=== PATIENT | male | born 1950 | race Caucasian/White ===

== ENCOUNTER 2017-02-12 13:29 | Inpatient (IN) ==
[2017-02-12 14:09] LABS: Basophils % 0.2 % (0.0-0.8); Eosinophils # 0.1 10*3/uL (0.0-0.87); Eosinophils % 0.6 % (0.00-10.9); Hematocrit 42.3 VOL% (42.0-52.0); Immature Granulocytes % 0.6 %; Immature Granulocytes Absolute 0.09 #; Lymphocytes # 2.9 10*3/uL (1.4-4.0); Lymphocytes % 18.3 % (21.2-54.2); Mean Corpuscular HGB Conc 33.1 GM/DL (32-36); Mean Corpuscular Hemoglobin 28 PG (27-34); Mean Corpuscular Volume 84.1 FL (87-102); Mean Platelet Volume 8.9 FL (9.6-12.0); Monocytes # 0.9 10*3/uL (0.11-0.8); Monocytes % 5.7 % (1.7-12.7); Neutrophils # 11.8 10*3/uL (1.4-7.4); Neutrophils % 74.6 % (38.7-73.9); Platelet Count 218 T/CUMM (130-400); Red Blood Count 5.03 MC/CUMM (3.8-5.5); Red Cell Distribution Width 14.6 % (9.3-17.3); White Blood Count 15.8 T/CUMM (4-12)
--- NOTE | 2017-02-12 14:41 | XRay Report ---
Exam: XR abdomen complete w decub Date: 02/12/2017 1:48 PM Comparison: 11/08/2015 Indication: Generalized abdominal pain Technique:[Supine and left lateral decubitus abdomen] Findings: Nonobstructed bowel gas pattern. Increased fecal material in the colon. Probable ingested shot in the bowel. Stable small metallic coil coils in the right pelvis. Diffuse vascular calcifications are noted which makes it difficult to exclude additional renal calculi. Degenerative changes with prior median sternotomy. Impression: Nonobstructed bowel gas pattern. Increased signal material consistent with constipation. Prior median sternotomy with diffuse arterial calcifications which makes it difficult to exclude additional renal calculi. PROCEDURE INTERPRETED AT [facility] DEPARTMENT OF RADIOLOGY Final Report Signed by: Dr. Codi Olson
[2017-02-12 14:42] LABS: Bilirubin,Total 0.7 MG/DL (0.2-1.0); Calcium 8.1 MG/DL (8.5-10.1); Osmolality,Calculated 271.8 MOS/KG (273-304); Potassium 3.5 MMOL/L (3.5-5.1); Total Protein 6.2 G/DL (6.4-8.3)
[2017-02-12 14:48] LABS: Apearance,Urine CLEAR (Clear); Bacteria,Urine Occasional /HPF (Few); Bilirubin,Urine Negative (Negative); Blood, Urine Negative (Negative); Glucose,Urine (UA) Negative (Negative); Ketones,Urine Negative (Negative); Mucus,Urine Occasional /LPF (Occasional); Nitrite,Urine Negative (Negative); Protein,Urine Negative; RBC,Urine 2 /HPF (0-4); Urine Color Yellow (Yellow); Urine Specific Gravity 1.016 (1.001-1.035)
--- NOTE | 2017-02-12 15:02 | Emergency Department Note ---
Ana Avalos Brittany, am scribing for, and in the presence of, Richard Blake MD 14:18. Lou Avalos Phillip K, MD, personally performed the services described in this documentation, ascribed by Jaclyn Perez in my presence, and it is both accurate and complete [id number] . Arrival - Arrival Chief Complaint: GI Bleed/Rectal Stated Complaint: G I Bleed ED Nursing Triage Note: Arrived via EMS from home. Patient states that he has hard stools and noticed bright red blood in the commode yesterday. States that has been bleeding off and on. Mode of Arrival: Stretcher Limitations: No Limitations Source: Patient Time Seen by Provider: 02/12/17 13:42 - History of Present Illness HPI Narrative: This is a 66 y/o white male,who presents to the ED by EMS for further evaluation of hematochezia which started yesterday. He states he has a medical Hx of hemorrhoids. He notes abdominal pain and rectal pain . He denies any nausea or vomiting. Pt also complains of urinary retention and dark colored urine. He states the last time he voided was this morning. Pt has no other complaints/pain in the ED at this time. Pt has a PMHx of CVA, CAD, NM, dyslipidemia, aneurysm, hemorrhoids, and BPH. Pt denies a surgical Hx. Pt denies a family medical Hx. Pt denies a social Hx. Onset (ago): day(s) (Started yesterday) Consistency: constant Severity: moderate Allergies/Adverse Reactions: Allergies Allergy/AdvReac Type Severity Reaction Status Date / Time No Known Allergies Allergy Verified 02/12/17 13:44 Home Medications: Home Medications Medication Instructions Recorded Confirmed Type ALPRAZolam [Xanax] 1 mg PO Q8H 03/21/15 11/08/15 History HYDROcodone/ACETAMIN 10-325 [[place] 1 tablet PO Q6H PRN 03/21/15 11/08/15 History 10-325] Lovastatin 40 mg PO DAILY 03/21/15 11/08/15 History Metoprolol Tartrate 25 mg PO DAILY 03/21/15 11/08/15 History Tamsulosin [Flomax] 0.4 mg PO DAILY 03/21/15 11/08/15 History hydroCHLOROthiazide 25 mg PO BID DIURETIC 03/21/15 11/08/15 History [Hydrochlorothiazide] Amoxicillin/Clav Tab [Augmentin 875 mg PO BID #20 tablet 11/03/15 11/08/15 Rx Tab] Methocarbamol Tab [Robaxin Tab] 750 mg PO TID 11/03/15 11/08/15 History Potassium Chloride Cap/Tab [K Dur] 20 meq PO BID #60 tablet 11/03/15 11/08/15 Rx Temazepam [Restoril] 30 mg PO BEDTIME 11/03/15 11/08/15 History Magnesium Citrate [Citrate of 300 ml PO AC BREAKFAST #1 solution 11/08/15 Rx Magnesia] Review of System - Review of System 12 point system: reviewed and no additional remarkable complaints except as stated - Review of System Gastrointestinal: Present: abdominal pain, hematochezia, other (Rectal pain ). Absent: nausea, vomiting Genitourinary male: Present: other (Urinary retention with dark urine ) Medical,Surgical,& Family Hx - Medical History Cardio: History of: Aneurysm, CAD, NM Neurology: History of: Cerebrovascular Accident (with resulting left hemiparesis , CVA 2) Endocrine: History of: Dyslipidemia Genitourinary: History of: Prostate Problems (BPH) Gastrointestinal: History of: Hemorrhoids - Social History Smoking Status: Never smoker Frequency of Alcohol Use: None Type of Drug Use: None Exam Vital Signs: Vital Signs Temperature 97.6 F 02/12/17 13:41 Pulse Rate 100 H 02/12/17 13:41 Respiratory Rate 18 02/12/17 13:41 Blood Pressure 103/64 02/12/17 13:41 O2 Sat by Pulse Oximetry 98 02/12/17 13:30 - General General appearance: alert, in no apparent distress - Head Head exam: Present: atraumatic, normocephalic, normal inspection - Eye Eye exam: Present: normal appearance, PERRL, EOMI. Absent: nystagmus, miosis, mydriasis - ENT ENT exam: Present: normal exam, normal oropharynx, mucous membranes moist, TM's normal bilaterally, normal external ear exam - Neck Neck exam: Present: normal inspection, full ROM, trachea midline. Absent: tenderness, meningismus, lymphadenopathy, thyromegaly - Chest Chest inspection: Present: normal inspection, symmetric chest wall rise. Absent : tenderness, rash, abscess - Respiratory Respiratory exam: Present: normal lung sounds bilaterally. Absent: rales, respiratory distress, rhonchi, stridor, wheezes - Cardiovascular Cardiovascular exam: Present: normal rhythm, tachycardia, normal heart sounds. Absent: murmur, rubs, gallop, clicks, JVD - Abdominal Exam Abdominal exam: Present: soft, tenderness (Tenderness to the supprapubic area), normal bowel sounds. Absent: distention, guarding, rebound, rigidity - Rectal Exam Rectal exam: Present: bloody stool (Grossly bloody stool). Absent: hemorrhoids - Extremities Exam Extremities exam: Present: normal inspection, full ROM (Left extremities are normal, but there is left hemiparesis which is chronic secondary to CVA), normal capillary refill, other (Brace noted on the left leg secondary to CVA). Absent: tenderness, pedal edema, joint swelling, calf tenderness - Back Exam Back exam: Present: normal inspection, full ROM. Absent: tenderness, muscle spasm, rashes - Neurological Exam Neurological exam: Present: alert, oriented X3, CN II-XII intact. Absent: motor sensory deficit - Psychiatric Psychiatric exam: Present: normal affect, normal mood. Absent: depressed, agitated, anxious, flat affect, manic - Skin Skin exam: Present: warm, dry, intact, normal color. Absent: rash, cyanosis, diaphoresis, erythema, pallor, mottled Results - Labs CBC & BMP: 02/12/17 13:50 02/12/17 13:50 Lab Results: I have reviewed the patients labs Labs: Laboratory Tests 02/12/17 13:50 WBC 15.8 H RBC 5.03 Hgb 14.0 Hct 42.3 MCV 84.1 L MCH 28 MCHC 33.1 RDW 14.6 Plt Count 218 MPV 8.9 L Neut % (Auto) 74.6 H Lymph % (Auto) 18.3 L Marshall % (Auto) 5.7 Eos % (Auto) 0.6 Baso % (Auto) 0.2 Neut # (Auto) 11.8 H Lymph # (Auto) 2.9 Marshall # (Auto) 0.9 H Eos # (Auto) 0.1 Baso # (Auto) 0.0 Immature Gran % 0.6 Nucleated RBC % 0.0 Immature Gran # 0.09 Nucleated RBCs # 0.00 Laboratory Tests 02/12/17 13:50 Sodium 137 Potassium 3.5 Chloride 99 Carbon Dioxide 31 Anion Gap 10.5 BUN 16 Creatinine 0.90 GFR Calculation 84 BUN/Creatinine Ratio 17.00 Glucose 60 L Calculated Osmolality 271.8 L Calcium 8.1 L Total Bilirubin 0.70 AST 12 ALT 11 L Alkaline Phosphatase 68 Total Protein 6.2 L Albumin 3.0 L Globulin 3.2 Albumin/Globulin Ratio 0.9 L - Diagnostic Findings Procedure: Abdominal x-ray: report reviewed by me (Nonobstructed bowel gas pattern. Increased signal material consistnet with constipation. Prior median sternotomy with diffuse arterail calcifications which makes it difficult to exclude additional renal calculi. ) Disposition Clinical Impression: Lower gastrointestinal hemorrhage Case discussed with: patient Disposition: Still a Patient Condition: Guarded Additional Instructions: Admit to the hospitalist.
--- NOTE | 2017-02-12 16:14 | Hospitalist History & Physical ---
<Noé Guthrie - Last Filed: 02/12/17 16:06> Assessment and Plan (1) Lower gastrointestinal hemorrhage Status: Acute Assessment and plan: Gaston red blood noted per rectum. H&H 14 and 42.3. Consult gastroenterology for C scope. Initiate IV fluids for maintenance. Type and screen for possible blood transfusion. PPI therapy. Serial H&H's. Current Visit: Yes (2) Dyslipidemia Status: Acute Current Visit: Yes (3) Hemorrhoids Status: Acute Assessment and plan: Consult GI for colonoscopy. Gaston red blood per rectum could be due to ruptured internal hemorrhoids or diverticula. Continue to monitor H&H. Current Visit: Yes (4) Leukocytosis Status: Acute Assessment and plan: WBC 15.8. Will obtain blood cultures. Urinalysis was negative for any infection. Treat empirically with broad-spectrum antibiotics. Current Visit: Yes History of Present Illness Chief complaint: Lower GI Bleed History of present illness: Mr. Herrmann is a 66 year old male with a history of CVA, NH, hypertension, GI bleed, hemorrhoids who presented to the ED this afternoon with complaints of gaston red blood per rectum with onset yesterday. Patient states that he has been experiencing bloody stool and sometimes gaston blood per rectum even while urinating since last night. Patient does have a history of hemorrhoids which his notes to be "flattened". Digital rectal exam performed by ER physician revealed gaston red blood. Patient does admit to left lower quadrant and suprapubic pain associated with this bleeding. Patient denies headache, blurry vision, chest pain, shortness of breath, numbness or tingling outside of the ordinary, near syncopal episodes. On admission, lab work reveals WBC of 15.8, hemoglobin 14.0, hematocrit 42.3, sodium 137, potassium 3.5, BUN 16, creatinine 0.90, glucose 60. Urinalysis is negative for infection. Case has been discussed with Dr. Blake, ER physician, and Dr. Alberts, admitting physician, and the patient will be admitted to hospitalist service for further evaluation and treatment. Patient is a full code. Medications have been reviewed. Home Medications Medication Instructions Recorded Confirmed Type ALPRAZolam [Xanax] 1 mg PO Q8H PRN 03/21/15 02/12/17 History Lovastatin 40 mg PO BID 03/21/15 02/12/17 History Tamsulosin [Flomax] 0.4 mg PO DAILY 03/21/15 02/12/17 History hydroCHLOROthiazide 25 mg PO BID 03/21/15 02/12/17 History [Hydrochlorothiazide] Potassium Chloride Cap/Tab [K Dur] 20 meq PO BID #60 tablet 11/03/15 02/12/17 Rx Aspirin EC Tab 81 mg PO DAILY 02/12/17 02/12/17 History Baclofen Tab [Lioresal] 20 mg PO TID 02/12/17 02/12/17 History Duloxetine HCl [Duloxetine] 90 mg PO DAILY 02/12/17 02/12/17 History diphenhydrAMINE HCl 25 mg PO BEDTIME 02/12/17 02/12/17 History [diphenhydrAMINE Tab] Allergies Allergy/AdvReac Type Severity Reaction Status Date / Time No Known Allergies Allergy Verified 02/12/17 13:44 Medical,Surgical,& Family Hx - Medical History Cardio: History of: Aneurysm, CAD, [place] Neurology: History of: Cerebrovascular Accident (with resulting left hemiparesis , CVA 2) Endocrine: History of: Dyslipidemia Genitourinary: History of: Prostate Problems (BPH) Gastrointestinal: History of: Hemorrhoids - Family History Family History: Reports;: Family Heart Disease, Family Hypertension - Social History Smoking Status: Never smoker Frequency of Alcohol Use: None Type of Drug Use: None Marital Status: Lives With:: Spouse Functional capacity: bed bound - Constitutional Constitutional: Present: weakness. Absent: fatigue, headache(s) - EENT Eyes: Absent: blurry vision, loss of vision Ears: Absent: decreased hearing, ear pain Nose, mouth and throat: Absent: hoarseness, neck mass, sore throat - Cardiovascular Cardiovascular: Absent: chest pain at rest, diaphoresis, dyspnea, edema, palpitations - Respiratory Respiratory: Absent: cough, dyspnea, dyspnea on exertion, wheezing - Gastrointestinal Gastrointestinal: Present: hematochezia. Absent: abdominal pain, nausea, vomiting - Genitourinary Genitourinary: Present: difficulty urinating. Absent: dysuria, flank pain, hematuria - Musculoskeletal Musculoskeletal: Present: limited range of motion, muscle weakness - Neurological Neurological: Present: abnormal gait, numbness. Absent: abnormal speech, headache(s), syncope - Psychiatric Psychiatric: Absent: anxiety, depression - Endocrine Endocrine: Absent: fatigue - Hematologic/Lymphatic Hematologic/Lymphatic: Absent: easy bleeding, easy bruising Exam - Constitutional Vitals: Period Temp Pulse Resp BP Sys/Farr Pulse Ox Last 24 Hr 97.6 F-97.6 F 94-104 10-18 99-120/64-93 98 Exam: General appearance: normal weight, no acute distress - Head Head exam: Present: normocephalic, atraumatic - Eye Eye exam: Present: EOMI. Absent: conjunctival injection, nystagmus Pupils: Present: KAUSHIK, normal accommodation - ENT ENT exam: Present: normal exam, normal external ear exam - Neck Neck exam: Present: normal inspection. Absent: lymphadenopathy, tenderness, thyromegaly - Respiratory Respiratory exam: Present: clear to auscultation bilaterally. Absent: rales, rhonchi, wheezes - Cardiovascular Cardiovascular exam: Present: regular rate and rhythm. Absent: carotid bruit, gallop, rubs - GI/Abdominal GI/Abdominal exam: Present: normal bowel sounds. Absent: ascites, distended, mass - Extremities Exam Extremities exam: Present: normal capillary refill, contracted left upper extremity due to CVA, weakened left lower extremity disease CVA absent: edema - Back Exam Back exam: Absent: CVA tenderness (L), CVA tenderness (R) - Neurological Exam Neurological exam: Present: alert, oriented X3 - Psychiatric Psychiatric exam: Present: normal affect, normal mood - Skin Skin exam: Present: normal color, warm, dry Results - Labs CBC & BMP: 02/12/17 13:50 02/12/17 13:50 Lab Results: I have reviewed the past 24 hour labs - EKG EKG results: interpreted by ERMD - Diagnostic Findings Procedure: Abdominal x-ray: image reviewed by me, report reviewed by me <Alysha Alberts - Last Filed: 02/13/17 07:23> History of Present Illness History of present illness: Mr. Herrmann is a 66 year old male with a history of hemorrhoids started having gaston red per rectum the night prior to presentation. He had about 4 episodes prior to presenting to the ER. Upon arrival his H/H was stable and his KUB showed a nonobstructed bowel gas pattern. Plan Admit to a monitor bed IVF Serial cbc type and screen GI consult. Exam - Constitutional Vitals: Period Temp Pulse Resp BP Sys/Farr Pulse Ox Last 24 Hr 96.3 F-97.6 F 85-104 10-20 90-120/57-93 94-99 Results - Labs CBC & BMP: 02/13/17 04:32 02/13/17 04:32
[2017-02-12 16:44] LABS: INR 1.1; PT Patient Result 11.5 SECS
[2017-02-12] MEDS ORDERED: PANTOPRAZOLE 40 MG VIAL IV SCH (17:22)
[2017-02-12] MEDS: SODIUM CHLORIDE 0.9% 1,000 ML IV SCH (18:34)
[2017-02-12 18:58] LABS: Basophils % 0.3 % (0.0-0.8); Eosinophils # 0.2 10*3/uL (0.0-0.87); Eosinophils % 1.2 % (0.00-10.9); Hematocrit 38.2 VOL% (42.0-52.0); Hemoglobin 12.5 GM/DL (14.0-18.0); Immature Granulocytes % 0.5 %; Immature Granulocytes Absolute 0.07 #; Lymphocytes # 3.3 10*3/uL (1.4-4.0); Lymphocytes % 25.6 % (21.2-54.2); Mean Corpuscular HGB Conc 32.7 GM/DL (32-36); Mean Corpuscular Hemoglobin 28 PG (27-34); Mean Corpuscular Volume 85.5 FL (87-102); Mean Platelet Volume 9.1 FL (9.6-12.0); Monocytes # 0.5 10*3/uL (0.11-0.8); Monocytes % 3.6 % (1.7-12.7); Neutrophils # 8.9 10*3/uL (1.4-7.4); Neutrophils % 68.8 % (38.7-73.9); Platelet Count 229 T/CUMM (130-400); Red Blood Count 4.47 MC/CUMM (3.8-5.5); Red Cell Distribution Width 14.6 % (9.3-17.3); White Blood Count 12.9 T/CUMM (4-12)
[2017-02-12 19:34] LABS: Risk Ratio 2.14; Thyroid Stimulating Hormone 0.885 uIU/ml (0.358-3.74); VLDL CHOLESTEROL 15.2 MG/DL
[2017-02-12] MEDS: ALPRAZolam 0.5 MG TABLET PO PRN (21:31)
[2017-02-12] MEDS: BACLOFEN 20 MG TABLET PO SCH (21:32)
[2017-02-12] MEDS: LOVASTATIN 20 MG TABLET PO SCH (21:32)
[2017-02-12] MEDS: PANTOPRAZOLE 40 MG VIAL IV SCH (21:41)
[2017-02-13 06:08] LABS: Basophils % 0.3 % (0.0-0.8); Eosinophils # 0.2 10*3/uL (0.0-0.87); Eosinophils % 2.2 % (0.00-10.9); Hematocrit 39.1 VOL% (42.0-52.0); Hemoglobin 12.4 GM/DL (14.0-18.0); Immature Granulocytes % 0.3 %; Immature Granulocytes Absolute 0.03 #; Lymphocytes # 3.6 10*3/uL (1.4-4.0); Lymphocytes % 33.9 % (21.2-54.2); Mean Corpuscular HGB Conc 31.7 GM/DL (32-36); Mean Corpuscular Hemoglobin 27 PG (27-34); Mean Platelet Volume 9.1 FL (9.6-12.0); Monocytes # 0.7 10*3/uL (0.11-0.8); Monocytes % 6.7 % (1.7-12.7); Neutrophils # 6.1 10*3/uL (1.4-7.4); Neutrophils % 56.6 % (38.7-73.9); Platelet Count 236 T/CUMM (130-400); Red Cell Distribution Width 14.6 % (9.3-17.3); White Blood Count 10.7 T/CUMM (4-12)
[2017-02-13 06:47] LABS: Albumin 2.7 G/DL (3.4-5.0); Bilirubin,Total 0.7 MG/DL (0.2-1.0); Calcium 8.1 MG/DL (8.5-10.1); Osmolality,Calculated 273.5 MOS/KG (273-304); Potassium 4.2 MMOL/L (3.5-5.1); Total Protein 5.7 G/DL (6.4-8.3)
[2017-02-13] MEDS: SODIUM CHLORIDE 0.9% 1,000 ML IV SCH ×2 (08:30→10:53)
[2017-02-13] MEDS ORDERED: diphenhydrAMINE CAP 25 MG CAPSULE PO SCH (09:00)
[2017-02-13] MEDS ORDERED: LACTULOSE 20 GM/30 ML UDCUP PO PRN (09:04)
[2017-02-13] MEDS ORDERED: DEXTROSE 50% 25 GM/50 ML VIAL IV PRN ×2 (09:37→10:15)
[2017-02-13] MEDS ORDERED: GLUCAGON 1 MG VIAL IM PRN ×2 (09:37→10:15)
--- NOTE | 2017-02-13 09:41 | Hospitalist Progress Note ---
<Noé Guthrie - Last Filed: 02/13/17 09:38> Assessment and Plan (1) Lower gastrointestinal hemorrhage Status: Acute Assessment and plan: Gaston red blood noted per rectum. H&H 14 and 42.3. Consult gastroenterology for C scope. Initiate IV fluids for maintenance. Type and screen for possible blood transfusion. PPI therapy. Serial H&H's. 02/13/17 -H&H today 12.4 and 39.1. GI has been consulted and is scheduled to see the patient today for possible colonoscopy. No bleeding per rectum noted overnight. Current Visit: Yes (2) Dyslipidemia Status: Acute Current Visit: Yes (3) Hemorrhoids Status: Acute Assessment and plan: Consult GI for colonoscopy. Gaston red blood per rectum could be due to ruptured internal hemorrhoids or diverticula. Continue to monitor H&H. 02/13/17 -GI is on board. Current Visit: Yes (4) Leukocytosis Status: Acute Assessment and plan: WBC 15.8. Will obtain blood cultures. Urinalysis was negative for any infection. Treat empirically with broad-spectrum antibiotics. 02/13/17 -WBC down to 10.7 today. Current Visit: Yes (5) Hypoglycemia Status: Acute Assessment and plan: This is likely secondary to the patient's nutritional status or GI bleed. Patient is not diabetic and is not on any antidiabetic medication. We will continue to monitor serum glucose and give dextrose as necessary. Current Visit: Yes Hospitalist: Subjective Interval history: Patient seen and examined today. He is lying in bed awake and alert. GI has been consulted and is scheduled to see the patient today for possible colonoscopy. Patient notes that he has not had any gaston bleeding per rectum overnight. H&H remained stable at 12.4 and 39.1. Patient does have low blood sugar today at 61. We will continue to monitor and be prepared to give dextrose as indicated. Exam - Constitutional Vitals: Period Temp Pulse Resp BP Sys/Farr Pulse Ox Last 24 Hr 96.3 F-97.6 F 80-104 10-20 90-120/57-93 93-99 Exam: General appearance: normal weight, no acute distress - Head Head exam: Present: normocephalic, atraumatic - Eye Eye exam: Present: EOMI. Absent: conjunctival injection, nystagmus Pupils: Present: KAUSHIK, normal accommodation - ENT ENT exam: Present: normal exam, normal external ear exam - Neck Neck exam: Present: normal inspection. Absent: lymphadenopathy, tenderness, thyromegaly - Respiratory Respiratory exam: Present: clear to auscultation bilaterally. Absent: rales, rhonchi, wheezes - Cardiovascular Cardiovascular exam: Present: regular rate and rhythm. Absent: carotid bruit, gallop, rubs - GI/Abdominal GI/Abdominal exam: Present: normal bowel sounds. Absent: ascites, distended, mass - Extremities Exam Extremities exam: Present: normal capillary refill, contracted left upper extremity due to CVA, weakened left lower extremity disease CVA absent: edema - Back Exam Back exam: Absent: CVA tenderness (L), CVA tenderness (R) - Neurological Exam Neurological exam: Present: alert, oriented X3 - Psychiatric Psychiatric exam: Present: normal affect, normal mood - Skin Skin exam: Present: normal color, warm, dry Results - Labs CBC & BMP: 02/13/17 04:32 02/13/17 04:32 Lab Results: I have reviewed the past 24 hour labs Quality Measures - VTE Contraindication to Pharmacological VTE Prophylaxis: Active Bleeding <Alysha Alberts - Last Filed: 02/13/17 15:42> Hospitalist: Subjective Interval history: We will give Colace and lactulose for his constipation. Exam - Constitutional Vitals: Period Temp Pulse Resp BP Sys/Farr Pulse Ox Last 24 Hr 96.3 F-97.5 F 80-103 12-20 90-120/55-78 93-99 Results - Labs CBC & BMP: 02/13/17 04:32 02/13/17 04:32
--- NOTE | 2017-02-13 10:04 | Gastrointestinal Consult Note ---
<Mary Vásquez - Last Filed: 02/13/17 09:58> Assessment and Plan (1) Lower gastrointestinal hemorrhage Status: Acute Assessment and plan: 02/13-Sudden onset of bright red rectal bleeding with lower abdominal pain. Hx of perirectal abscess with surgical intervention in 2012. Hgb down slightly at 12. Clear liquid diet. Tentative colonoscopy to further evaluate source of bleeding tomorrow. Plan and addendum to follow by Dr Belcher. Current Visit: Yes History of Present Illness Chief complaint: Rectal bleed History of present illness: Mr. Herrmann is a 66 year old male who was admitted to the hospital with onset of rectal bleeding. Pt states he was in his usual state of health until Sunday night when he had the urge to have a bowel movement. Following this, he noted that he had a large amount of bright red blood mixed in the stool with his bowel movement. He also recalls having some lower quadrant abdominal pain associated with this. Pt states that he had 2-3 more episodes of this and then reported to the ER for further evaluation. He reports his last bloody bowel movement was yesterday morning. He states he has had this in the past in 2012 in which he underwent emergent colonoscopy and surgical intervention with findings at that time of perirectal ulcer/abscess. Under anesthesia he had evacuation of intraluminal clot and debris from cavitary perforation. He states he has had no further bleeding since this time. Hemoglobin on admission noted at 14, down slightly at 12.4. He denies any NSAID or anticoagulant use. He denies any recent weight loss, fever, chills or night sweats. States he does have some history of constipation and hemorrhoids and will have mild bright red bleeding at times but nothing to this caliber. Abdominal xray shows nonobstructed bowel gas pattern with constipation. WBC are elevated at 15.8 with blood cultures pending and negative UA. Home Medications Medication Instructions Recorded Confirmed Type ALPRAZolam [Xanax] 1 mg PO Q8H PRN 03/21/15 02/12/17 History Lovastatin 40 mg PO BID 03/21/15 02/12/17 History Tamsulosin [Flomax] 0.4 mg PO DAILY 03/21/15 02/12/17 History hydroCHLOROthiazide 25 mg PO BID 03/21/15 02/12/17 History [Hydrochlorothiazide] Potassium Chloride Cap/Tab [K Dur] 20 meq PO BID #60 tablet 11/03/15 02/12/17 Rx Aspirin EC Tab 81 mg PO DAILY 02/12/17 02/12/17 History Baclofen Tab [Lioresal] 20 mg PO TID 02/12/17 02/12/17 History Duloxetine HCl [Duloxetine] 90 mg PO DAILY 02/12/17 02/12/17 History diphenhydrAMINE HCl 25 mg PO BEDTIME 02/12/17 02/12/17 History [diphenhydrAMINE Tab] Allergies Allergy/AdvReac Type Severity Reaction Status Date / Time No Known Allergies Allergy Verified 02/12/17 13:44 Medical,Surgical,& Family Hx - Medical History Cardio: History of: Aneurysm, CAD, [place] (x 2) Psychological: No history of: Anxiety Disorders, ADHD, Behavior Problems, Bipolar Disorder, Depression, Previous Suicide Attempt, Psychiatric/Substance Abuse Tx, Schizophrenia, Violent Behavior, Psychiatric Problems Neurology: History of: Cerebrovascular Accident (with resulting left hemiparesis , CVA 2) Endocrine: History of: Dyslipidemia Genitourinary: History of: Prostate Problems (BPH) Gastrointestinal: History of: Hemorrhoids - Family History Family History: Reports;: Family Heart Disease, Family Hypertension - Social History Smoking Status: Never smoker Frequency of Alcohol Use: None Type of Drug Use: None 12 point system: reviewed and no additional remarkable complaints except as stated - Constitutional Constitutional: Present: as per HPI - EENT Eyes: Present: as per HPI Ears: Present: as per HPI Nose, mouth and throat: Present: as per HPI - Cardiovascular Cardiovascular: Present: as per HPI - Respiratory Respiratory: Present: as per HPI - Gastrointestinal Gastrointestinal: Present: as per HPI, abdominal pain, hematochezia - Genitourinary Genitourinary: Present: as per HPI - Musculoskeletal Musculoskeletal: Present: as per HPI - Neurological Neurological: Present: as per HPI - Psychiatric Psychiatric: Present: as per HPI - Endocrine Endocrine: Present: as per HPI - Hematologic/Lymphatic Hematologic/Lymphatic: Present: as per HPI Exam - Constitutional Vitals: Period Temp Pulse Resp BP Sys/Farr Pulse Ox Last 24 Hr 96.3 F-97.6 F 80-104 10-20 90-120/57-93 93-99 General appearance: normal weight, no acute distress - Head Head exam: Present: normal inspection, normocephalic - Eye Eye exam: Present: other (lids and conjunctiva unremarkable). Absent: scleral icterus - ENT ENT exam: Present: normal exam, normal oropharynx - Neck Neck exam: Present: normal inspection - Respiratory Respiratory exam: Present: clear to auscultation bilaterally. Absent: rales, rhonchi, wheezes - Cardiovascular Cardiovascular exam: Present: regular rate and rhythm. Absent: diastolic murmur , JVD, systolic murmur - GI/Abdominal GI/Abdominal exam: Present: normal bowel sounds, tenderness, soft. Absent: ascites, distended, mass, organomegaly - Extremities Exam Extremities exam: Present: normal inspection, full ROM - Back Exam Back exam: Present: normal inspection - Neurological Exam Neurological exam: Present: alert, oriented X3 - Psychiatric Psychiatric exam: Present: normal affect, normal mood - Skin Skin exam: Present: normal color, warm, dry Results - Labs CBC & BMP: 02/13/17 04:32 02/13/17 04:32 Lab Results: I have reviewed the past 24 hour labs Quality Measures - VTE Contraindication to Pharmacological VTE Prophylaxis: Active Bleeding <Anoop Belcher - Last Filed: 02/13/17 18:38> History of Present Illness History of present illness: Mr. Herrmann is a 66 year old male Exam - Constitutional Vitals: Period Temp Pulse Resp BP Sys/Farr Pulse Ox Last 24 Hr 96.3 F-98.4 F 80-100 18-20 92-117/55-73 93-99 Results - Labs CBC & BMP: 02/13/17 04:32 02/13/17 04:32
[2017-02-13] MEDS: PANTOPRAZOLE 40 MG VIAL IV SCH (10:41)
[2017-02-13] MEDS: TAMSULOSIN 0.4 MG CAPSULE PO SCH (10:42)
[2017-02-13] MEDS: BACLOFEN 20 MG TABLET PO SCH ×3 (10:42→21:34)
[2017-02-13] MEDS: DOCUSATE SODIUM 100 MG CAPSULE PO SCH ×2 (10:43→21:34)
[2017-02-13] MEDS: DULoxetine 30 MG CAPSULE PO SCH (10:43)
[2017-02-13] MEDS: LOVASTATIN 20 MG TABLET PO SCH ×2 (10:43→21:34)
[2017-02-13] MEDS ORDERED: INSULIN LISPRO 100 UNIT/ML SUBCUT SCH ×2 (11:30)
[2017-02-13] MEDS ORDERED: BISACODYL 5 MG TABLET PO ONE (12:30)
[2017-02-13] MEDS ORDERED: POLYETHYLENE GLYCOL POWDER 255 GM BOTTLE PO ONE (13:00)
[2017-02-13] MEDS ORDERED: MAGNESIUM CITRATE 300 ML BOTTLE PO ONE (21:00)
[2017-02-13] MEDS: diphenhydrAMINE CAP 25 MG CAPSULE PO SCH (21:34)
[2017-02-13] MEDS: DESITIN 4OZ/NYSTATIN 15 GRAM MIXTURE PASTE TOP SCH (21:55)
[2017-02-14] MEDS: SODIUM CHLORIDE 0.9% 1,000 ML IV SCH ×5 (01:38→23:24)
[2017-02-14] MEDS ORDERED: POLYETHYLENE GLYCOL POWDER 255 GM BOTTLE PO ONE (09:01)
[2017-02-14] MEDS: PANTOPRAZOLE 40 MG VIAL IV SCH (09:30)
[2017-02-14] MEDS: DOCUSATE SODIUM 100 MG CAPSULE PO SCH ×2 (09:31→20:57)
[2017-02-14] MEDS: LOVASTATIN 20 MG TABLET PO SCH ×2 (09:31→20:57)
[2017-02-14] MEDS: DULoxetine 30 MG CAPSULE PO SCH (09:31)
[2017-02-14] MEDS: TAMSULOSIN 0.4 MG CAPSULE PO SCH (09:31)
[2017-02-14] MEDS: BACLOFEN 20 MG TABLET PO SCH ×3 (09:31→20:57)
--- NOTE | 2017-02-14 10:06 | Gastrointestinal Progress Note ---
<Mary Vásquez - Last Filed: 02/14/17 09:02> Assessment and Plan (1) Lower gastrointestinal hemorrhage Status: Acute Assessment and plan: 02/14-hemoglobin unchanged at 12. Patient continues to have formed stool with colon prep. Postpone colonoscopy until tomorrow and continue prep clear liquid diet today. Plan an addendum to follow by Dr. Belcher. 02/13-Sudden onset of bright red rectal bleeding with lower abdominal pain. Hx of perirectal abscess with surgical intervention in 2012. Hgb down slightly at 12. Clear liquid diet. Tentative colonoscopy to further evaluate source of bleeding tomorrow. Plan and addendum to follow by Dr Belcher. Current Visit: Yes Gastroenterology - PN: Subj Interval history: CC: Lower GI bleed Patient is seen awake and alert lying in bed. States he is feeling fair due to he did not sleep overnight. He was given colon prep on yesterday however does continue to have formed stools this morning. He is unable to recall if he is seen any further bleeding at this time. Colonoscopy was scheduled for today however this will be postponed until tomorrow we will continue his prep today and clear liquid diet. Hemoglobin is unchanged at this time. Abdomen is soft, nontender. ROS: Denies shortness of breath or chest pain. Exam (Progress Note) - Constitutional Vitals: Period Temp Pulse Resp BP Sys/Farr Pulse Ox Last 24 Hr 96.9 F-98.6 F 65-128 16-18 106-139/55-76 93-100 General appearance: normal weight, no acute distress - Head Head exam: Present: normal inspection, normocephalic - Eye Eye exam: Present: other (Lids and conjunctive are unremarkable). Absent: scleral icterus - ENT ENT exam: Present: normal exam, normal oropharynx - Neck Neck exam: Present: normal inspection - Respiratory Respiratory exam: Present: clear to auscultation bilaterally. Absent: rales, rhonchi, wheezes - Cardiovascular Cardiovascular exam: Present: regular rate and rhythm. Absent: diastolic murmur , JVD, systolic murmur - GI/Abdominal GI/Abdominal exam: Present: normal bowel sounds, soft. Absent: ascites, distended, mass, organomegaly, tenderness - Extremities Exam Extremities exam: Present: normal inspection, full ROM - Back Exam Back exam: Present: normal inspection - Neurological Exam Neurological exam: Present: alert, oriented X3 - Psychiatric Psychiatric exam: Present: normal affect, normal mood - Skin Skin exam: Present: normal color, warm, dry Results - Labs CBC & BMP: 02/13/17 04:32 02/13/17 04:32 Lab Results: I have reviewed the past 24 hour labs <Anoop Belcher - Last Filed: 02/14/17 18:09> Exam (Progress Note) - Constitutional Vitals: Period Temp Pulse Resp BP Sys/Farr Pulse Ox Last 24 Hr 96.9 F-98.6 F 65-128 16-20 115-139/56-98 93-100 Results - Labs CBC & BMP: 02/14/17 10:22 02/14/17 10:22
--- NOTE | 2017-02-14 10:40 | Hospitalist Progress Note ---
<Noé Guthrie - Last Filed: 02/14/17 10:37> Assessment and Plan (1) Lower gastrointestinal hemorrhage Status: Acute Assessment and plan: Gaston red blood noted per rectum. H&H 14 and 42.3. Consult gastroenterology for C scope. Initiate IV fluids for maintenance. Type and screen for possible blood transfusion. PPI therapy. Serial H&H's. 02/13/17 -H&H today 12.4 and 39.1. GI has been consulted and is scheduled to see the patient today for possible colonoscopy. No bleeding per rectum noted overnight. 02/14/17 -labs were they are pending. Patient reports some bleeding overnight due to bowel prep in anticipation of colonoscopy tomorrow. Continue PPI therapy. Current Visit: Yes (2) Hemorrhoids Status: Acute Assessment and plan: Consult GI for colonoscopy. Gaston red blood per rectum could be due to ruptured internal hemorrhoids or diverticula. Continue to monitor H&H. 02/13/17 -GI is on board. Current Visit: Yes (3) Leukocytosis Status: Acute Assessment and plan: WBC 15.8. Will obtain blood cultures. Urinalysis was negative for any infection. Treat empirically with broad-spectrum antibiotics. 02/13/17 -WBC down to 10.7 today. 02/14/17 -labs for today are pending. Blood cultures and urine cultures are negative at day 1. Patient remains afebrile. Current Visit: Yes (4) Hypoglycemia Status: Acute Assessment and plan: This is likely secondary to the patient's nutritional status or GI bleed. Patient is not diabetic and is not on any antidiabetic medication. We will continue to monitor serum glucose and give dextrose as necessary. 02/14/17 -patient was advanced to a clear liquid diet yesterday and his glucose has normalized. Last Accu-Chek 94 Current Visit: Yes (5) Dyslipidemia Status: Acute Current Visit: Yes Hospitalist: Subjective Interval history: Patient seen and examined today. He is lying in bed awake and alert. His only complaint is that he has had to use the bathroom too often due to the bowel prep in preparation for his colonoscopy in the morning. Labs are pending. Will continue to monitor H&H. Exam - Constitutional Vitals: Period Temp Pulse Resp BP Sys/Farr Pulse Ox Last 24 Hr 96.9 F-98.6 F 65-128 16-18 106-139/55-76 93-100 Exam: General appearance: normal weight, no acute distress - Head Head exam: Present: normocephalic, atraumatic - Eye Eye exam: Present: EOMI. Absent: conjunctival injection, nystagmus Pupils: Present: KAUSHIK, normal accommodation - ENT ENT exam: Present: normal exam, normal external ear exam - Neck Neck exam: Present: normal inspection. Absent: lymphadenopathy, tenderness, thyromegaly - Respiratory Respiratory exam: Present: clear to auscultation bilaterally. Absent: rales, rhonchi, wheezes - Cardiovascular Cardiovascular exam: Present: regular rate and rhythm. Absent: carotid bruit, gallop, rubs - GI/Abdominal GI/Abdominal exam: Present: normal bowel sounds. 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 Quality Measures - VTE Contraindication to Pharmacological VTE Prophylaxis: Active Bleeding <Alysha Alberts - Last Filed: 02/14/17 14:35> Hospitalist: Subjective Interval history: Patient was seen this am, his colonoscopy was postponed due to poor prep. Exam - Constitutional Vitals: Period Temp Pulse Resp BP Sys/Farr Pulse Ox Last 24 Hr 96.9 F-98.6 F 65-128 16-20 117-139/68-98 93-100 Results - Labs CBC & BMP: 02/14/17 10:22 02/14/17 10:22
[2017-02-14 10:52] LABS: Basophils % 0.3 % (0.0-0.8); Eosinophils # 0.1 10*3/uL (0.0-0.87); Eosinophils % 0.8 % (0.00-10.9); Hematocrit 33.2 VOL% (42.0-52.0); Hemoglobin 10.5 GM/DL (14.0-18.0); Immature Granulocytes % 0.5 %; Immature Granulocytes Absolute 0.05 #; Lymphocytes # 1.8 10*3/uL (1.4-4.0); Lymphocytes % 19.2 % (21.2-54.2); Mean Corpuscular HGB Conc 31.6 GM/DL (32-36); Mean Corpuscular Hemoglobin 27 PG (27-34); Mean Corpuscular Volume 86.7 FL (87-102); Mean Platelet Volume 9.3 FL (9.6-12.0); Monocytes # 0.4 10*3/uL (0.11-0.8); Monocytes % 4.8 % (1.7-12.7); Neutrophils # 6.9 10*3/uL (1.4-7.4); Neutrophils % 74.4 % (38.7-73.9); Platelet Count 254 T/CUMM (130-400); Red Blood Count 3.83 MC/CUMM (3.8-5.5); Red Cell Distribution Width 14.4 % (9.3-17.3); White Blood Count 9.2 T/CUMM (4-12)
[2017-02-14 11:18] LABS: Calcium 7.8 MG/DL (8.5-10.1); Magnesium 2.7 MG/DL (1.8-2.4); Osmolality,Calculated 282.3 MOS/KG (273-304); Potassium 5.1 MMOL/L (3.5-5.1)
[2017-02-14] MEDS: DESITIN 4OZ/NYSTATIN 15 GRAM MIXTURE PASTE TOP SCH ×2 (14:58→21:25)
[2017-02-14] MEDS: diphenhydrAMINE CAP 25 MG CAPSULE PO SCH (20:57)
[2017-02-14 21:56] LABS: Hematocrit 29.8 VOL% (42.0-52.0); Hemoglobin 9.7 GM/DL (14.0-18.0)
[2017-02-14] MEDS: MORPHINE 2 MG/1 ML SYRINGE IV PRN (23:50)
[2017-02-15 06:31] LABS: Basophils % 0.1 % (0.0-0.8); Hematocrit 24.8 VOL% (42.0-52.0); Hemoglobin 8.3 GM/DL (14.0-18.0); Immature Granulocytes % 0.8 %; Immature Granulocytes Absolute 0.17 #; Lymphocytes # 2.9 10*3/uL (1.4-4.0); Lymphocytes % 13.7 % (21.2-54.2); Mean Corpuscular HGB Conc 33.5 GM/DL (32-36); Mean Corpuscular Hemoglobin 29 PG (27-34); Mean Corpuscular Volume 85.2 FL (87-102); Mean Platelet Volume 8.9 FL (9.6-12.0); Monocytes # 1.2 10*3/uL (0.11-0.8); Monocytes % 5.6 % (1.7-12.7); Neutrophils # 17.1 10*3/uL (1.4-7.4); Neutrophils % 79.8 % (38.7-73.9); Platelet Count 221 T/CUMM (130-400); Red Blood Count 2.91 MC/CUMM (3.8-5.5); Red Cell Distribution Width 14.4 % (9.3-17.3); White Blood Count 21.5 T/CUMM (4-12)
[2017-02-15 06:53] LABS: Band Neutrophils 2 % (0-10); Lymphocytes 11 % (20-55); Segmented Neutrophils 83 % (50-85); Total Cells Counted 100
[2017-02-15 06:54] LABS: Hypochromasia 1+; Platelet Estimate Adequate
[2017-02-15 07:04] LABS: Calcium 7.4 MG/DL (8.5-10.1); Magnesium 2.3 MG/DL (1.8-2.4); Osmolality,Calculated 275.5 MOS/KG (273-304); Potassium 4.6 MMOL/L (3.5-5.1)
[2017-02-15 09:37] LABS: Hematocrit 24.6 VOL% (42.0-52.0); Hemoglobin 8.1 GM/DL (14.0-18.0)
[2017-02-15 10:17] LABS: Basophils # 0.1 10*3/uL (0.0-0.2); Basophils % 0.2 % (0.0-0.8); Eosinophils % 0.1 % (0.00-10.9); Hematocrit 24.5 VOL% (42.0-52.0); Immature Granulocytes % 0.7 %; Immature Granulocytes Absolute 0.17 #; Lymphocytes # 4.2 10*3/uL (1.4-4.0); Lymphocytes % 18.2 % (21.2-54.2); Mean Corpuscular HGB Conc 32.7 GM/DL (32-36); Mean Corpuscular Hemoglobin 28 PG (27-34); Mean Corpuscular Volume 85.4 FL (87-102); Mean Platelet Volume 8.8 FL (9.6-12.0); Monocytes # 1.3 10*3/uL (0.11-0.8); Monocytes % 5.8 % (1.7-12.7); Neutrophils # 17.2 10*3/uL (1.4-7.4); Platelet Count 222 T/CUMM (130-400); Red Blood Count 2.87 MC/CUMM (3.8-5.5); Red Cell Distribution Width 14.5 % (9.3-17.3); White Blood Count 22.9 T/CUMM (4-12)
--- NOTE | 2017-02-15 10:34 | Hospitalist Progress Note ---
<Noé Guthrie - Last Filed: 02/15/17 10:27> Assessment and Plan - Time spent with patient Time spent with patient: Less than 30 minutes (1) Lower gastrointestinal hemorrhage Status: Acute Assessment and plan: Gaston red blood noted per rectum. H&H 14 and 42.3. Consult gastroenterology for C scope. Initiate IV fluids for maintenance. Type and screen for possible blood transfusion. PPI therapy. Serial H&H's. 02/13/17 -H&H today 12.4 and 39.1. GI has been consulted and is scheduled to see the patient today for possible colonoscopy. No bleeding per rectum noted overnight. 02/14/17 -labs were they are pending. Patient reports some bleeding overnight due to bowel prep in anticipation of colonoscopy tomorrow. Continue PPI therapy. 02/15/70 -H&H today down to 8.3 and 24.8. Patient underwent bowel prep yesterday. He is scheduled for colonoscopy today. Current Visit: Yes (2) Hemorrhoids Status: Acute Assessment and plan: Consult GI for colonoscopy. Gaston red blood per rectum could be due to ruptured internal hemorrhoids or diverticula. Continue to monitor H&H. 02/13/17 -GI is on board. Current Visit: Yes (3) Leukocytosis Status: Acute Assessment and plan: WBC 15.8. Will obtain blood cultures. Urinalysis was negative for any infection. Treat empirically with broad-spectrum antibiotics. 02/13/17 -WBC down to 10.7 today. 02/14/17 -labs for today are pending. Blood cultures and urine cultures are negative at day 1. Patient remains afebrile. 02/15/17-WBC to 22 today. Urine culture grew gram-negative rods at day 2. We will start Rocephin. Current Visit: Yes (4) Hypoglycemia Status: Acute Assessment and plan: This is likely secondary to the patient's nutritional status or GI bleed. Patient is not diabetic and is not on any antidiabetic medication. We will continue to monitor serum glucose and give dextrose as necessary. 02/14/17 -patient was advanced to a clear liquid diet yesterday and his glucose has normalized. Last Accu-Chek 94 02/15/17 -this has been resolved since the patient's diet has been advanced. We will continue to monitor. Current Visit: Yes (5) Dyslipidemia Status: Acute Current Visit: Yes Hospitalist: Subjective Interval history: Patient seen and examined on the floor today. He is scheduled for colonoscopy this morning. He reports feeling fine today however his repeat H&H has dropped to 8.3 and 24.8. White count today is elevated at 22. Urine culture grew gram- negative rods on day 2. We will start on broad-spectrum antibiotics empirically until sensitivity report is back. Exam - Constitutional Vitals: Period Temp Pulse Resp BP Sys/Farr Pulse Ox Last 24 Hr 97.4 F-98.2 F 98-124 16-22 104-127/54-98 90-99 Exam: General appearance: normal weight, no acute distress - Head Head exam: Present: normocephalic, atraumatic - Eye Eye exam: Present: EOMI. Absent: conjunctival injection, nystagmus Pupils: Present: KAUSHIK, normal accommodation - ENT ENT exam: Present: normal exam, normal external ear exam - Neck Neck exam: Present: normal inspection. Absent: lymphadenopathy, tenderness, thyromegaly - Respiratory Respiratory exam: Present: clear to auscultation bilaterally. Absent: rales, rhonchi, wheezes - Cardiovascular Cardiovascular exam: Present: regular rate and rhythm. Absent: carotid bruit, gallop, rubs - GI/Abdominal GI/Abdominal exam: Present: normal bowel sounds. Absent: ascites, distended, mass - Extremities Exam Extremities exam: Present: normal capillary refill, contracted left upper extremity due to CVA, weakened left lower extremity disease CVA absent: edema - Back Exam Back exam: Absent: CVA tenderness (L), CVA tenderness (R) - Neurological Exam Neurological exam: Present: alert, oriented X3 - Psychiatric Psychiatric exam: Present: normal affect, normal mood - Skin Skin exam: Present: normal color, warm, dry Results - Labs CBC & BMP: 02/15/17 10:03 02/15/17 06:22 Lab Results: I have reviewed the past 24 hour labs Quality Measures - VTE Contraindication to Pharmacological VTE Prophylaxis: Active Bleeding <Pao Gross - Last Filed: 02/15/17 16:45> Hospitalist: Subjective Interval history: Patient seen and examined independently of NANNETTE Guthrie, agree with assessment and plan as documented. Leukocytosis today, started on rocephin today for UTI. Colonoscopy today. Exam - Constitutional Vitals: Period Temp Pulse Resp BP Sys/Farr Pulse Ox Last 24 Hr 97.8 F-99.0 F 104-120 16-24 68-127/38-69 90-99 Results - Labs CBC & BMP: 02/15/17 15:45 02/15/17 06:22
[2017-02-15 10:39] LABS: Band Neutrophils 5 % (0-10); Lymphocytes 19 % (20-55); Segmented Neutrophils 70 % (50-85); Total Cells Counted 100
[2017-02-15 10:40] LABS: Hypochromasia 1+; Microcytosis 1+
[2017-02-15 10:41] LABS: Platelet Estimate Normal
[2017-02-15] MEDS ORDERED: PROPOFOL 200 MG/20 ML VIAL IV ONE (11:49)
[2017-02-15] MEDS ORDERED: LIDOCAINE 2% 5 ML VIAL ONE (11:49)
--- NOTE | 2017-02-15 12:09 | History and Physical Update ---
History and Physical Update - Physical Exam Mental Status: alert and oriented Heart: regular rate and rhythm Lung: clear to auscultation Abdomen: within normal limits Vitals: within normal limits
--- NOTE | 2017-02-15 12:12 | Operative Note ---
Date of procedure: 02/15/17 Pre-op diagnosis: Rectal bleeding Procedure: Colonoscopy with biopsy 66-year-old gentleman previous CVA admitted with lower abdominal pain and bleeding now for colonoscopy to further evaluate. Patient placed in left lateral decubitus position informed symptoms obtained from the patient. He was sedated with MAC anesthesia per anesthesia protocol. Digital exam was normal no masses were felt. The Olympus flexible video colonoscope surname canal mass to the level of the cecum. Withdrawal time 9 minutes Prep fair Findings: Cecum-identified by ileocecal valve appendiceal orifice. Ascending colon-normal exam limited by prep Transverse colon-normal exam limited by prep Descending: Normal exam limited by prep Sigmoid colon-normal exam limited by prep Rectum-ulceration present in the distal rectum consistent with stercoral ulcer biopsies were taken to exclude other pathologic sources. Postop diagnosis: 1. Rectal bleeding likely secondary to stercoral ulceration from chronic constipation. This can be problematic to manage minimizing his levels of constipation with MiraLAX and increased p.o. intake of fluids. If chronic ulceration develops and continued symptoms may need to consider diverting colostomy. Anesthesia: MAC Surgeon / Physician: Anoop Belcher Estimated blood loss: none Specimens: other (Rectal ulcer) Condition: stable Disposition: post procedure unit Results - Labs CBC & BMP: 02/15/17 10:03 02/15/17 06:22 Discharge Plan - Discharge Medications No Action Tamsulosin [Flomax] 0.4 mg PO DAILY Lovastatin 40 mg PO BID ALPRAZolam [Xanax] 1 mg PO Q8H PRN PRN Reason: Anxiety hydroCHLOROthiazide [Hydrochlorothiazide] 25 mg PO BID Potassium Chloride Cap/Tab [K Dur] 20 meq PO BID #60 tablet Baclofen Tab [Lioresal] 20 mg PO TID Aspirin EC Tab 81 mg PO DAILY Duloxetine HCl [Duloxetine] 90 mg PO DAILY diphenhydrAMINE HCl [diphenhydrAMINE Tab] 25 mg PO BEDTIME - Follow Up or Referral - Forms/Instructions
--- NOTE | 2017-02-15 12:38 | Anesthesia Post-Op ---
Anesthesia Post OP - Post Ansesthetic Evaluation Patient seen in post op: Yes Resp: within normal limits CV: within normal limits Mental: within normal limits Temp: within normal limits Aaxz-Id-Afxsolxaj: within normal limits Nausea and Vomiting: within normal limits Pain: within normal limits
[2017-02-15] MEDS: DOCUSATE SODIUM 100 MG CAPSULE PO SCH ×2 (12:40→20:57)
[2017-02-15] MEDS: BACLOFEN 20 MG TABLET PO SCH ×3 (12:41→20:56)
[2017-02-15] MEDS: LOVASTATIN 20 MG TABLET PO SCH ×2 (12:42→20:56)
[2017-02-15] MEDS: SODIUM CHLORIDE 0.9% 1,000 ML IV SCH (14:18)
[2017-02-15] MEDS: POLYETHYLENE GLYCOL POWDER 17 GM PACK PO SCH (14:36)
[2017-02-15] MEDS: DULoxetine 30 MG CAPSULE PO SCH (14:36)
[2017-02-15] MEDS: cefTRIAXone 1,000 MG in SODIUM CHLORIDE 0.9% 100 ML IV SCH (14:37)
[2017-02-15] MEDS: PANTOPRAZOLE 40 MG VIAL IV SCH (14:37)
[2017-02-15] MEDS: TAMSULOSIN 0.4 MG CAPSULE PO SCH (14:37)
[2017-02-15] MEDS: DESITIN 4OZ/NYSTATIN 15 GRAM MIXTURE PASTE TOP SCH ×2 (14:38→20:56)
[2017-02-15 16:07] LABS: Hematocrit 24.7 VOL% (42.0-52.0)
[2017-02-15] MEDS: ALPRAZolam 0.5 MG TABLET PO PRN (17:21)
[2017-02-15] MEDS: diphenhydrAMINE CAP 25 MG CAPSULE PO SCH (20:57)
[2017-02-16] MEDS: cefTRIAXone 1,000 MG in SODIUM CHLORIDE 0.9% 100 ML IV SCH ×3 (00:21→22:48)
[2017-02-16 03:01] LABS: Apearance,Urine CLEAR (Clear); Bilirubin,Urine Negative (Negative); Blood, Urine Negative (Negative); Glucose,Urine (UA) Negative (Negative); Ketones,Urine Negative (Negative); Nitrite,Urine Negative (Negative); Protein,Urine Negative; RBC,Urine <1 /HPF (0-4); Squamous Epithelial Cell,Urine Occasional /HPF (0-10); Urine Color Colorless (Yellow); Urine Specific Gravity 1.001 (1.001-1.035); Urine Urobilinogen < 2.0 EU/DL (0.2-1.0); WBC,Urine 9 /HPF (0-6)
[2017-02-16 05:29] LABS: Basophils % 0.1 % (0.0-0.8); Eosinophils # 0.1 10*3/uL (0.0-0.87); Hematocrit 21.6 VOL% (42.0-52.0); Hemoglobin 6.9 GM/DL (14.0-18.0); Immature Granulocytes % 0.6 %; Immature Granulocytes Absolute 0.08 #; Lymphocytes # 3.6 10*3/uL (1.4-4.0); Lymphocytes % 25.7 % (21.2-54.2); Mean Corpuscular HGB Conc 31.9 GM/DL (32-36); Mean Corpuscular Hemoglobin 28 PG (27-34); Mean Corpuscular Volume 87.4 FL (87-102); Mean Platelet Volume 9.3 FL (9.6-12.0); Monocytes # 0.8 10*3/uL (0.11-0.8); Monocytes % 5.8 % (1.7-12.7); Neutrophils # 9.4 10*3/uL (1.4-7.4); Neutrophils % 66.8 % (38.7-73.9); Platelet Count 203 T/CUMM (130-400); Red Blood Count 2.47 MC/CUMM (3.8-5.5); Red Cell Distribution Width 14.7 % (9.3-17.3)
[2017-02-16 06:01] LABS: Calcium 7.7 MG/DL (8.5-10.1); Magnesium 2.6 MG/DL (1.8-2.4); Potassium 5.2 MMOL/L (3.5-5.1)
[2017-02-16 06:17] LABS: Platelet Estimate Normal
[2017-02-16] MEDS ORDERED: SODIUM CHLORIDE 0.9% 250 ML IV PRN (08:19)
--- NOTE | 2017-02-16 08:35 | Gastrointestinal Progress Note ---
<Mary Vásquez Jose - Last Filed: 02/16/17 08:33> Assessment and Plan (1) Lower gastrointestinal hemorrhage Status: Acute Assessment and plan: 02/16-hemoglobin down at 6.9 and absence of any overt bleeding. Normal stools per patient. Colonoscopy findings noted. To be transfused 2 units packed red blood cells today. Continue to monitor H&H. Plan an addendum to follow by Dr. Belcher. 02/14-hemoglobin unchanged at 12. Patient continues to have formed stool with colon prep. Postpone colonoscopy until tomorrow and continue prep clear liquid diet today. Plan an addendum to follow by Dr. Belcher. 02/13-Sudden onset of bright red rectal bleeding with lower abdominal pain. Hx of perirectal abscess with surgical intervention in 2012. Hgb down slightly at 12. Clear liquid diet. Tentative colonoscopy to further evaluate source of bleeding tomorrow. Plan and addendum to follow by Dr Belcher. Current Visit: Yes Gastroenterology - PN: Subj Interval history: CC: Rectal bleed Patient is seen awake alert sitting up in bed. States he had an uneventful night. Denies abdominal pain, nausea or vomiting. He is noted to have a drop in his hemoglobin overnight 6.9 however states he has not seen any overt bleeding. He did have a bowel movement yesterday evening following his colonoscopy but denies any bleeding with this. Abdomen soft, nontender. We will continue to watch his H&H today. This appears to have already been addressed by the hospitalist staff. He is to be transfused 2 units of packed red blood cells today. ROS: Denies shortness of breath or chest pain Exam (Progress Note) - Constitutional Vitals: Period Temp Pulse Resp BP Sys/Farr Pulse Ox Last 24 Hr 97.4 F-99.0 F 93-109 16-24 68-120/38-66 91-98 General appearance: normal weight, no acute distress - Head Head exam: Present: normal inspection, normocephalic - Eye Eye exam: Present: other (Lids and conjunctive are unremarkable). Absent: scleral icterus - ENT ENT exam: Present: normal exam, normal oropharynx - Neck Neck exam: Present: normal inspection - Respiratory Respiratory exam: Present: clear to auscultation bilaterally. Absent: rales, rhonchi, wheezes - Cardiovascular Cardiovascular exam: Present: regular rate and rhythm. Absent: diastolic murmur , JVD, systolic murmur - GI/Abdominal GI/Abdominal exam: Present: normal bowel sounds, soft. Absent: ascites, distended, mass, organomegaly, tenderness - Extremities Exam Extremities exam: Present: normal inspection, full ROM - Back Exam Back exam: Present: normal inspection - Neurological Exam Neurological exam: Present: alert, oriented X3 - Psychiatric Psychiatric exam: Present: normal affect, normal mood - Skin Skin exam: Present: normal color, warm, dry Results - Labs CBC & BMP: 02/16/17 04:10 02/16/17 04:10 Lab Results: I have reviewed the past 24 hour labs <Anoop Belcher - Last Filed: 02/16/17 10:24> Exam (Progress Note) - Constitutional Vitals: Period Temp Pulse Resp BP Sys/Farr Pulse Ox Last 24 Hr 97.4 F-99.0 F 93-109 16-24 68-120/38-66 91-98 Results - Labs CBC & BMP: 02/16/17 04:10 02/16/17 04:10
[2017-02-16] MEDS: BACLOFEN 20 MG TABLET PO SCH ×3 (09:05→20:35)
[2017-02-16] MEDS: DULoxetine 30 MG CAPSULE PO SCH (09:05)
[2017-02-16] MEDS: TAMSULOSIN 0.4 MG CAPSULE PO SCH (09:05)
[2017-02-16] MEDS: LOVASTATIN 20 MG TABLET PO SCH ×2 (09:05→20:35)
[2017-02-16] MEDS: PANTOPRAZOLE 40 MG VIAL IV SCH (09:05)
[2017-02-16] MEDS: DOCUSATE SODIUM 100 MG CAPSULE PO SCH ×2 (09:05→20:34)
[2017-02-16] MEDS: DESITIN 4OZ/NYSTATIN 15 GRAM MIXTURE PASTE TOP SCH ×2 (09:06→20:35)
[2017-02-16] MEDS: POLYETHYLENE GLYCOL POWDER 17 GM PACK PO SCH ×2 (09:06→09:07)
--- NOTE | 2017-02-16 10:17 | Hospitalist Progress Note ---
<Noé Guthrie - Last Filed: 02/16/17 10:13> Assessment and Plan (1) Lower gastrointestinal hemorrhage Status: Acute Assessment and plan: Asa red blood noted per rectum. H&H 14 and 42.3. Consult gastroenterology for C scope. Initiate IV fluids for maintenance. Type and screen for possible blood transfusion. PPI therapy. Serial H&H's. 02/13/17 -H&H today 12.4 and 39.1. GI has been consulted and is scheduled to see the patient today for possible colonoscopy. No bleeding per rectum noted overnight. 02/14/17 -labs are pending. Patient reports some bleeding overnight due to bowel prep in anticipation of colonoscopy tomorrow. Continue PPI therapy. 02/15/17 -H&H today down to 8.3 and 24.8. Patient underwent bowel prep yesterday. He is scheduled for colonoscopy today. 02/16/17 -H&H down to 6.9 and 21.6. Colonoscopy on yesterday showed rectal ulceration and distal rectum consistent with stercoral ulcer. GI recommends management by minimizing levels of constipation with MiraLAX and increase p.o. intake of fluids. Nursing reports no bleeding per rectum overnight. Because this anemia is unclear. Patient will be transfused with 2 units of PRBCs today and continue monitoring of his H&H. If we can manage to stabilize his H&H patient should be able to go home within a day or so. Consider additional colonoscopy or EGD if H&H does not stabilize. It was noted that the colonoscopy was limited due to suboptimal. Current Visit: Yes (2) Leukocytosis Status: Acute Assessment and plan: WBC 15.8. Will obtain blood cultures. Urinalysis was negative for any infection. Treat empirically with broad-spectrum antibiotics. 02/13/17 -WBC down to 10.7 today. 02/14/17 -labs for today are pending. Blood cultures and urine cultures are negative at day 1. Patient remains afebrile. 02/15/17-WBC to 22 today. Urine culture grew gram-negative rods at day 2. We will start Rocephin. 02/16/17 -WBC down to 14 today. Continue Rocephin. Current Visit: Yes (3) Hypoglycemia Status: Acute Assessment and plan: This is likely secondary to the patient's nutritional status or GI bleed. Patient is not diabetic and is not on any antidiabetic medication. We will continue to monitor serum glucose and give dextrose as necessary. 02/14/17 -patient was advanced to a clear liquid diet yesterday and his glucose has normalized. Last Accu-Chek 94 02/15/17 -this has been resolved since the patient's diet has been advanced. We will continue to monitor. Current Visit: Yes (4) Hemorrhoids Status: Acute Assessment and plan: Consult GI for colonoscopy. Asa red blood per rectum could be due to ruptured internal hemorrhoids or diverticula. Continue to monitor H&H. 02/13/17 -GI is on board. Current Visit: Yes (5) Dyslipidemia Status: Acute Current Visit: Yes Hospitalist: Subjective Interval history: Patient seen and examined today. He was awake and alert lying in bed this morning with no complaints overnight. Patient denies headache, shortness of breath, nausea vomiting. He does voice complaints of abdominal tightness and a need to void. On exam, abdomen is soft, nontender to palpation and bowel sounds are normal. Patient did successfully avoid last night and there was no asa blood in his stool. However, his H&H has dropped to 6.9 and 21.6. He will be transfused with 2 units of PRBCs this morning with follow-up H&H. Results of colonoscopy are noted. Exam - Constitutional Vitals: Period Temp Pulse Resp BP Sys/Farr Pulse Ox Last 24 Hr 97.4 F-99.0 F 93-109 16-24 68-120/38-66 91-98 Exam: General appearance: normal weight, no acute distress - Head Head exam: Present: normocephalic, atraumatic - Eye Eye exam: Present: EOMI. Absent: conjunctival injection, nystagmus Pupils: Present: KAUSHIK, normal accommodation - ENT ENT exam: Present: normal exam, normal external ear exam - Neck Neck exam: Present: normal inspection. Absent: lymphadenopathy, tenderness, thyromegaly - Respiratory Respiratory exam: Present: clear to auscultation bilaterally. Absent: rales, rhonchi, wheezes - Cardiovascular Cardiovascular exam: Present: regular rate and rhythm. Absent: carotid bruit, gallop, rubs - GI/Abdominal GI/Abdominal exam: Present: normal bowel sounds. Absent: ascites, distended, mass - Extremities Exam Extremities exam: Present: normal capillary refill, contracted left upper extremity due to CVA, weakened left lower extremity disease CVA absent: edema - Back Exam Back exam: Absent: CVA tenderness (L), CVA tenderness (R) - Neurological Exam Neurological exam: Present: alert, oriented X3 - Psychiatric Psychiatric exam: Present: normal affect, normal mood - Skin Skin exam: Present: normal color, warm, dry Results - Labs CBC & BMP: 02/16/17 04:10 02/16/17 04:10 Lab Results: I have reviewed the past 24 hour labs Quality Measures - VTE Contraindication to Pharmacological VTE Prophylaxis: Active Bleeding <Pao Gross - Last Filed: 02/16/17 16:10> Hospitalist: Subjective Interval history: Patient seen and examined independently of NANNETTE Guthrie, agree with assessment and plan as documented. Drop in H/H, receiving 2 units PRBCs. Exam - Constitutional Vitals: Period Temp Pulse Resp BP Sys/Farr Pulse Ox Last 24 Hr 97.4 F-99.0 F 86-109 16-20 94-171/40-108 95-100 Results - Labs CBC & BMP: 02/16/17 04:10 02/16/17 04:10
--- NOTE | 2017-02-16 12:28 | Pathology Report from [facility] ---
[facility] ACCESSION # : [id number] PATIENT NAME : Mary Herrmann ORDERING DR : RANDELL FIELDS MD CLINICAL HX: GI Bleed POST-OP DX: Biopsy rectal ulcer SPECIMEN INFO: Rectal ulcer biopsy GROSS DESCRIPTION: The specimen is received in formalin labeled with the patients name and consists of two leonard tissue fragments measuring 0.4 x 0.2 cm collectively. Submitted in one cassette. DIAGNOSIS FOR MARY HERRMANN: RECTUM, BIOPSY: Benign colonic mucosa with ulceration and acute inflammation. No evidence of malignancy. COLLECTED DATE: 02/15/2017 [facility] REPORT DATE: 02/16/2017 ELECTRONICALLY SIGNED BY: Cy Crews III, M.D. 02/16/2017 - 10:40:39 [email or web address]
[2017-02-16] MEDS: MORPHINE 2 MG/1 ML SYRINGE IV PRN ×2 (17:50→22:59)
[2017-02-16 19:56] LABS: Hemoglobin 8.6 GM/DL (14.0-18.0)
[2017-02-16 20:06] LABS: INR 1.1; PT Patient Result 11.4 SECS
[2017-02-16] MEDS: SODIUM CHLORIDE 0.9% 1,000 ML IV SCH ×2 (20:33→20:34)
[2017-02-16] MEDS: diphenhydrAMINE CAP 25 MG CAPSULE PO SCH (20:34)
[2017-02-17 02:34] LABS: Basophils % 0.3 % (0.0-0.8); Eosinophils # 0.2 10*3/uL (0.0-0.87); Hematocrit 28.3 VOL% (42.0-52.0); Hemoglobin 9.3 GM/DL (14.0-18.0); Immature Granulocytes % 0.8 %; Immature Granulocytes Absolute 0.06 #; Lymphocytes # 2.1 10*3/uL (1.4-4.0); Lymphocytes % 28.4 % (21.2-54.2); Mean Corpuscular HGB Conc 32.9 GM/DL (32-36); Mean Corpuscular Hemoglobin 28 PG (27-34); Mean Platelet Volume 9.2 FL (9.6-12.0); Monocytes # 0.5 10*3/uL (0.11-0.8); Monocytes % 6.1 % (1.7-12.7); Neutrophils # 4.6 10*3/uL (1.4-7.4); Neutrophils % 62.4 % (38.7-73.9); Platelet Count 202 T/CUMM (130-400); Red Blood Count 3.37 MC/CUMM (3.8-5.5); Red Cell Distribution Width 15.5 % (9.3-17.3); White Blood Count 7.4 T/CUMM (4-12)
[2017-02-17] MEDS: SODIUM CHLORIDE 0.9% 1,000 ML IV SCH ×3 (03:22→20:33)
[2017-02-17] MEDS: LOVASTATIN 20 MG TABLET PO SCH ×2 (09:08→20:22)
[2017-02-17] MEDS: BACLOFEN 20 MG TABLET PO SCH ×3 (09:08→20:22)
[2017-02-17] MEDS: DOCUSATE SODIUM 100 MG CAPSULE PO SCH ×2 (09:08→20:22)
[2017-02-17] MEDS: DULoxetine 30 MG CAPSULE PO SCH (09:08)
[2017-02-17] MEDS: TAMSULOSIN 0.4 MG CAPSULE PO SCH (09:08)
[2017-02-17] MEDS: PANTOPRAZOLE 40 MG VIAL IV SCH (09:08)
[2017-02-17] MEDS: DESITIN 4OZ/NYSTATIN 15 GRAM MIXTURE PASTE TOP SCH ×2 (09:09→20:25)
[2017-02-17] MEDS: POLYETHYLENE GLYCOL POWDER 17 GM PACK PO SCH (09:09)
--- NOTE | 2017-02-17 11:22 | Event Note ---
Chief complaint stercoral ulcer Still with some lower abdominal sense of fullness but no bleeding is reported. He has had a couple bowel movements that have been small. Continue MiraLAX to minimize further pressure ulceration. Hematocrit has remained stable at 28%. Review of systems denies any shortness of breath or chest pain On exam he is alert and oriented 3 in no acute distress lungs clear to auscultation no respiratory distress heart regular rate and rhythm no murmur rub or gallop abdomen soft nondistended nontender no masses bowel sounds normoactive extremities no clubbing cyanosis or edema Recommendations: Continue MiraLAX and efforts to minimize constipation. No specific therapy is indicated for stercoral ulcer other than hopefully better control of his constipation to minimize trauma.
[2017-02-17] MEDS: cefTRIAXone 1,000 MG in SODIUM CHLORIDE 0.9% 100 ML IV SCH ×2 (12:27→22:18)
--- NOTE | 2017-02-17 13:40 | Hospitalist Progress Note ---
Assessment and Plan (1) Lower gastrointestinal hemorrhage Status: Acute Assessment and plan: S/p colonoscopy with sterocoral ulcer On miralax Current Visit: Yes (2) Dyslipidemia Status: Acute Current Visit: Yes (3) Leukocytosis Status: Acute Assessment and plan: Resolved Current Visit: Yes (4) Urinary tract infection Status: Acute Assessment and plan: On Rocephin Current Visit: Yes Hospitalist: Subjective Interval history: No acute events overnight. Responded appropriately to transfusion yesterday. No overt signs of bleeding. Exam - Constitutional Vitals: Period Temp Pulse Resp BP Sys/Farr Pulse Ox Last 24 Hr 96.9 F-98.1 F 86-99 16-20 109-171/44-108 94-99 General appearance: normal weight - Head Head exam: Present: normocephalic, atraumatic - Eye Eye exam: Present: EOMI Pupils: Present: KAUSHIK - ENT ENT exam: Present: normal exam - Neck Neck exam: Present: normal inspection - Respiratory Respiratory exam: Present: clear to auscultation bilaterally. Absent: rhonchi, wheezes - Cardiovascular Cardiovascular exam: Present: regular rate and rhythm - GI/Abdominal GI/Abdominal exam: Present: normal bowel sounds, soft. Absent: tenderness, rebound - Extremities Exam Extremities exam: Present: normal inspection - Back Exam Back exam: Present: normal inspection - Neurological Exam Neurological exam: Present: alert, oriented X3 - Psychiatric Psychiatric exam: Present: normal affect, normal mood - Skin Skin exam: Present: warm, intact Results - Labs CBC & BMP: 02/17/17 01:35 02/16/17 04:10 Quality Measures - VTE Contraindication to Pharmacological VTE Prophylaxis: Active Bleeding
[2017-02-17] MEDS: diphenhydrAMINE CAP 25 MG CAPSULE PO SCH (20:22)
[2017-02-17] MEDS: ALPRAZolam 0.5 MG TABLET PO PRN (20:22)
[2017-02-17] MEDS: MORPHINE 2 MG/1 ML SYRINGE IV PRN (20:22)
[2017-02-18 02:19] LABS: Hematocrit 31.1 VOL% (42.0-52.0); Hemoglobin 10.2 GM/DL (14.0-18.0)
[2017-02-18] MEDS: SODIUM CHLORIDE 0.9% 1,000 ML IV SCH (05:50)
[2017-02-18] MEDS: PANTOPRAZOLE 40 MG VIAL IV SCH (09:18)
[2017-02-18] MEDS: TAMSULOSIN 0.4 MG CAPSULE PO SCH (09:18)
[2017-02-18] MEDS: DESITIN 4OZ/NYSTATIN 15 GRAM MIXTURE PASTE TOP SCH (09:19)
[2017-02-18] MEDS: DULoxetine 30 MG CAPSULE PO SCH (09:19)
[2017-02-18] MEDS: DOCUSATE SODIUM 100 MG CAPSULE PO SCH (09:19)
[2017-02-18] MEDS: LOVASTATIN 20 MG TABLET PO SCH (09:19)
[2017-02-18] MEDS: BACLOFEN 20 MG TABLET PO SCH (09:19)
[2017-02-18] MEDS: POLYETHYLENE GLYCOL POWDER 17 GM PACK PO SCH (09:19)
--- NOTE | 2017-02-18 09:24 | Discharge Summary ---
<Noé Guthrie - Last Filed: 02/18/17 08:47> Hospital Course - Hospital Course Hospital Course: Mrs. Herrmann is a 66-year-old white male with history of CVA, [place], hypertension, lower GI bleed and hemorrhoids who presented to the emergency room on 02/12/2017 with complaints of asa red blood per rectum. Patient had been expressing bloody stool and sometimes asa red blood per rectum even while urinating. He was subsequently admitted with lower GI bleed and leukocytosis. GI was consulted and the patient was scheduled for colonoscopy. However, patient had a difficult time with bowel prep so his colonoscopy had to be pushed back by a day. On 02/15/2017, patient underwent a colonoscopy with biopsy which revealed a stercoral ulceration from chronic constipation. GI recommends MiraLAX and increase p.o. intake of fluids with the possibility of a diverting colostomy if the symptoms continue. During hospitalization, patient also continued to experience blood loss anemia with his H&H dropping as low as 6.9 and 21.6. He was subsequently transfused with 2 units of packed red blood cells and responded appropriately. At the time of discharge, H&H is up to 10.2 and 31.1. Urine culture grew Morganella morganii, and the patient was started on IV Rocephin with appropriate response. He has reached maximum benefit from hospitalization at this time and is stable for discharge. Patient to follow-up with PCP in 1-2 weeks. Diagnosis - Discharge Diagnosis (1) Lower gastrointestinal hemorrhage Status: Acute (2) Leukocytosis Status: Acute (3) Hypoglycemia Status: Acute (4) Hemorrhoids Status: Acute (5) Dyslipidemia Status: Acute Discharge Plan - Discharge Data Disposition: Disch To Home/Self Care - Discharge Medications New Polyethylene Glycol Powder [Miralax] 17 gm PO DAILY Continue Tamsulosin [Flomax] 0.4 mg PO DAILY Lovastatin 40 mg PO BID ALPRAZolam [Xanax] 1 mg PO Q8H PRN PRN Reason: Anxiety Baclofen Tab [Lioresal] 20 mg PO TID Aspirin EC Tab 81 mg PO DAILY Duloxetine HCl [Duloxetine] 90 mg PO DAILY diphenhydrAMINE HCl [diphenhydrAMINE Tab] 25 mg PO BEDTIME Discontinued hydroCHLOROthiazide [Hydrochlorothiazide] 25 mg PO BID Potassium Chloride Cap/Tab [K Dur] 20 meq PO BID #60 tablet - Follow Up or Referral - Forms/Instructions Exam - Constitutional Vitals: Period Temp Pulse Resp BP Sys/Farr Pulse Ox Last 24 Hr 96.9 F-98.6 F 94-107 16-20 109-139/49-90 95-100 Discharge Results Procedures and tests throughout hospitalization: Pending Orders 02/15/17 15:45 Blood Culture Routine Labs on day of discharge: Labs from last 24 hours 02/18/17 02/18/17 02/17/17 07:10 01:21 19:12 Hgb 10.2 L Hct 31.1 L POC Glucose 95 150 H 02/17/17 02/17/17 14:48 11:12 Hgb Hct POC Glucose 103 125 H Preliminary micro results at discharge 02/15/17 15:45 Blood Culture - Preliminary Blood No growth at 1 day 02/15/17 15:45 Blood Culture - Preliminary Blood No growth at 1 day DS: Provider Date of admission: 02/12/17 15:11 Primary care physician: . No PCP Attending physician on admission: Alysha Alberts MD Consults: 02/12/17 17:22 Consult to Physician [CONS] Routine Comment: Consulting Provider: Anoop Belcher Consult to Specialist Group: Gastroenterology When should Consulting Provider be notified: Now Person Notified: Mary Vásquez Date Notified: 02/13/17 Time Notified: 09:03 Discharging clinician: Noé BRUNSON Expected date of discharge: 02/18/17 <Pao Gross - Last Filed: 02/18/17 10:11> Hospital Course - Time spent with patient Time with patient DS: Less than 30 minutes (25) Diagnosis - Discharge Diagnosis (1) Lower gastrointestinal hemorrhage Status: Resolved (2) Dyslipidemia Status: Chronic (3) Leukocytosis Status: Resolved (4) Urinary tract infection Status: Resolved Discharge Plan - Discharge Data Condition at Discharge: Stable Discharge Diet: high fiber diet Activity: increase activity as tolerated Hygiene: no restrictions Weight Bearing at Discharge: weight bear as tolerated Contact your physician if you experience:: fever over 101, Shortness of breath, Bleeding Exam - Constitutional General appearance: normal weight - Head Head exam: Present: normocephalic, atraumatic - Eye Eye exam: Present: EOMI Pupils: Present: KAUSHIK - ENT ENT exam: Present: normal exam - Neck Neck exam: Present: normal inspection - Respiratory Respiratory exam: Present: clear to auscultation bilaterally. Absent: rhonchi, wheezes - Cardiovascular Cardiovascular exam: Present: regular rate and rhythm - GI/Abdominal GI/Abdominal exam: Present: normal bowel sounds, soft. Absent: tenderness, rebound - Extremities Exam Extremities exam: Present: normal inspection - Back Exam Back exam: Present: normal inspection - Neurological Exam Neurological exam: Present: alert - Psychiatric Psychiatric exam: Present: normal affect, normal mood - Skin Skin exam: Present: warm, intact
[2017-02-18 10:26] VITALS: BP 139/74
[2017-02-18] MEDS: cefTRIAXone 1,000 MG in SODIUM CHLORIDE 0.9% 100 ML IV SCH (11:47)
--- NOTE | 2017-02-18 12:39 | Event Note ---
Chief complaint stercoral ulcer Patient with less complaints of abdominal discomfort no further bleeding is reported. Continue MiraLAX try to decrease any pressure necrosis from stool and increase his bowel regularity. Plans are noted for discharge. Review of systems he denies any shortness of breath or chest pain On exam alert and oriented 3 in no acute distress with his hemiplegia. Neck is supple no JVD oropharynx is benign lungs clear to auscultation respiratory distress heart regular rate and rhythm no murmur no edema Abdomen soft nondistended nontender no masses no hepatosplenomegaly Extremities no clubbing cyanosis or edema of all 4 extremities. Recommendations: 1. Obstipation with stercoral ulcer continue efforts to minimize obstipation and allow for healing of his stercoral ulcer. Call if we can be of further assistance.
== END 2017-02-18 12:48 | disposition home or self-care (01) | DRG 378 ==
LOC: EDUNIT# → N.ED 13:29 → SUATTDRO 15:11 → N.EDINP 15:11 → N.5E 17:04
PROVIDERS: ADMIT Internal Medicine; ATTEND Internal Medicine
PROC: COLONBX (2017-02-15 09:35)

== ENCOUNTER 2017-02-21 13:55 | Inpatient (IN) ==
[2017-02-21 15:32] LABS: Basophils % 0.5 % (0.0-0.8); Eosinophils # 0.2 10*3/uL (0.0-0.87); Hematocrit 31.3 VOL% (42.0-52.0); Hemoglobin 10.2 GM/DL (14.0-18.0); Immature Granulocytes % 0.6 %; Immature Granulocytes Absolute 0.05 #; Lymphocytes # 2.8 10*3/uL (1.4-4.0); Lymphocytes % 32.9 % (21.2-54.2); Mean Corpuscular HGB Conc 32.6 GM/DL (32-36); Mean Corpuscular Hemoglobin 28 PG (27-34); Mean Corpuscular Volume 86.2 FL (87-102); Mean Platelet Volume 8.1 FL (9.6-12.0); Monocytes # 0.5 10*3/uL (0.11-0.8); Monocytes % 6.1 % (1.7-12.7); Neutrophils # 4.9 10*3/uL (1.4-7.4); Neutrophils % 57.9 % (38.7-73.9); Platelet Count 309 T/CUMM (130-400); Red Blood Count 3.63 MC/CUMM (3.8-5.5); Red Cell Distribution Width 15.9 % (9.3-17.3); White Blood Count 8.5 T/CUMM (4-12)
[2017-02-21] MEDS ORDERED: SODIUM CHLORIDE 0.9% 1,000 ML IV STA (15:51)
--- NOTE | 2017-02-21 15:53 | XRay Report ---
XR chest 1V portable Indication: Abdominal pain. Chest one view: Comparison 03/21/2015. Postoperative changes median sternotomy are stable. Lungs are now hypoinflated. Diffuse bronchial thickening is now present as well. Central pulmonary vascular crowding noted. No focal infiltrate. Normal heart size. Impression: Pulmonary hypoinflation. Airways disease such as bronchitis or viral syndrome. PROCEDURE INTERPRETED AT [facility] DEPARTMENT OF RADIOLOGY Final Report Signed by: Shahid Preston M.D.
--- NOTE | 2017-02-21 15:54 | XRay Report ---
XR KUB Indication: Abdominal pain. Abdomen one view: Couple of loops of small bowel are gas-filled and left mid abdomen and slightly reactive appearing. They're not dilated. Stool and gas is present throughout colon. Small metallic BB in the right upper quadrant, calcified atheromatous disease and degenerative changes of the thoracolumbar spine are stable when compared to 9 days ago. Impression: No bowel obstruction. At most, minimal gastroenteritis. PROCEDURE INTERPRETED AT [facility] DEPARTMENT OF RADIOLOGY Final Report Signed by: Shahid Preston M.D.
--- NOTE | 2017-02-21 15:56 | EKG Report ---
Stationary ECG Study [facility] ER Test Date: 02/21/2017 3:56:37 PM Pat Name: MARY CRAWFORD Department: Room: Gender: M [employer]ber [employer] Helper: : 1950 Requested by: Curtis Benoit Order Number: [id number] Reading MD: DIAMOND GOMEZ Intervals [place] Rate: 102 P: -1 NV: 147 QRS: 36 QRSD: 67 T: 1 QT: 333 QTc: 392 Interpretive Statements SINUS TACHYCARDIA POSSIBLE RIGHT VENTRICULAR CONDUCTION DELAY Electronically Signed On 02-21-17 18:06:20 CDT by DIAMOND GOMEZ [email or web address]
[2017-02-21 16:09] LABS: Alanine Aminotransferase 16 U/L (16-61); Albumin 2.6 G/DL (3.4-5.0); Alkaline Phosphatase 53 U/L (45-117); Aspartate Amino Transferase 16 U/L (0-37); Bilirubin,Total < 0.39 MG/DL (0.2-1.0); Blood Urea Nitrogen 14 MG/DL (7-18); Calcium 8.1 MG/DL (8.5-10.1); Glucose 71 MG/DL (74-106); Osmolality,Calculated 281.1 MOS/KG (273-304); Potassium 4.2 MMOL/L (3.5-5.1); Sodium 142 MMOL/L (136-145); Total Protein 5.6 G/DL (6.4-8.3)
--- NOTE | 2017-02-21 16:10 | Emergency Department Note ---
Rosmery Avalos Rolonda, am scribing for, and in the presence of, Curtis Clark MD 16:06. mAber Avalos Charles R, MD, personally performed the services described in this documentation, ascribed by Wilber Botello in my presence, and it is both accurate and complete 610 . Arrival - Arrival ED Nursing Triage Note: Brought in by EMS c/o LLQ pain and rectal bleeding- onset this morning. Family reports that patient has been digging in his rectum trying to have a BM. Was just discharged from here 2 days ago. Mode of Arrival: Stretcher Limitations: No Limitations Source: Patient, Family (daughter), Old Records Reviewed, RN Notes Reviewed - History of Present Illness Onset (ago): hour(s) Consistency: constant Severity: mild Severity scale (1-10): 3 <Curtis Clark - Last Filed: 02/21/17 17:21> <Roberto Carlos Mcbride - Last Filed: 02/21/17 18:28> - Arrival Chief Complaint: Abdominal / Flank Pain - History of Present Illness HPI Narrative: Pt is a 66 y/o male who was brought to the ED via EMS for further evaluation of abdominal pain with an onset of this morning. Pt recently visited the ED on for GI bleed and has a PMHx of lower gastrointestinal hemorrhoids. During last ED visit he was scoped and an ulcer on the rectum wall was discovered. Daughter states that she received a phone call that pt was bleeding from the rectum due to digging in the rectum which prompted visit to ED. Pt states that "if I eat, it comes straight out and I can't pee." Pt was advised for a mental evaluation. No other pain/complaint in ED. (Wilber Botello) Pt is a 66 y/o male who was brought to the ED via EMS for further evaluation of abdominal pain with an onset of this morning. Pt recently visited the ED on for GI bleed and has a PMHx of lower gastrointestinal hemorrhoids. During last ED visit he was scoped and an ulcer on the rectum wall was discovered. Daughter states that she received a phone call that pt was bleeding from the rectum due to digging in the rectum which prompted visit to ED. Pt states that "if I eat, it comes straight out and I can't pee." Pt was advised for a mental evaluation. No other pain/complaint in ED. (Curtis Clark) Allergies/Adverse Reactions: Allergies Allergy/AdvReac Type Severity Reaction Status Date / Time No Known Allergies Allergy Verified 02/12/17 13:44 Home Medications: Home Medications Medication Instructions Recorded Confirmed Type ALPRAZolam [Xanax] 1 mg PO Q8H PRN 03/21/15 02/12/17 History Lovastatin 40 mg PO BID 03/21/15 02/12/17 History Tamsulosin [Flomax] 0.4 mg PO DAILY 03/21/15 02/12/17 History Aspirin EC Tab 81 mg PO DAILY 02/12/17 02/12/17 History Baclofen Tab [Lioresal] 20 mg PO TID 02/12/17 02/12/17 History Duloxetine HCl [Duloxetine] 90 mg PO DAILY 02/12/17 02/12/17 History diphenhydrAMINE HCl 25 mg PO BEDTIME 02/12/17 02/12/17 History [diphenhydrAMINE Tab] Polyethylene Glycol Powder 17 gm PO DAILY 02/18/17 Rx [Miralax] Review of System - Review of System 12 point system: reviewed and no additional remarkable complaints except as stated - Review of System Constitutional: Absent: chills, fever Respiratory: Absent: cough, respiratory distress Cardiovascular: Absent: chest pain, dyspnea on exertion Gastrointestinal: Absent: nausea, vomiting, diarrhea Genitourinary male: Present: other (rectal bleeding) Musculoskeletal: Absent: arm pain, back pain, neck pain Neurological: Absent: headache, numbness <Curtis Clark - Last Filed: 02/21/17 17:21> Medical,Surgical,& Family Hx - Medical History Cardio: History of: Aneurysm, CAD, [place] (x 2) Psychological: No history of: Anxiety Disorders, ADHD, Behavior Problems, Bipolar Disorder, Depression, Previous Suicide Attempt, Psychiatric/Substance Abuse Tx, Schizophrenia, Violent Behavior, Psychiatric Problems Neurology: History of: Cerebrovascular Accident (with resulting left hemiparesis , CVA 2) No history of: Seizures Endocrine: History of: Dyslipidemia Genitourinary: History of: Prostate Problems (BPH) Gastrointestinal: History of: Hemorrhoids - Family History Family History: Reports;: Family Heart Disease, Family Hypertension - Social History Smoking Status: Never smoker Frequency of Alcohol Use: None Type of Drug Use: None <AmberCurtis R - Last Filed: 02/21/17 17:21> Exam - General General appearance: alert (but agitated), in no apparent distress, other (left side facial droop due to stroke) - Head Head exam: Present: atraumatic, normocephalic - Eye Eye exam: Present: PERRL, EOMI - ENT ENT exam: Present: mucous membranes moist. Absent: mucous membranes dry - Neck Neck exam: Present: full ROM. Absent: tenderness - Chest Chest inspection: Present: symmetric chest wall rise. Absent: tenderness - Respiratory Respiratory exam: Present: normal lung sounds bilaterally. Absent: wheezes - Cardiovascular Cardiovascular exam: Present: regular rate, normal rhythm, normal heart sounds. Absent: bradycardia - Abdominal Exam Abdominal exam: Present: soft, normal bowel sounds. Absent: tenderness - Rectal Exam Rectal exam: Present: heme (+) stool, other (abrasions due to anal fidgeting) - Extremities Exam Extremities exam: Present: other (left sided weakness due to stroke). Absent: tenderness - Back Exam Back exam: Present: full ROM. Absent: tenderness - Neurological Exam Neurological exam: Present: alert, oriented X3, CN II-XII intact - Psychiatric Psychiatric exam: Present: normal affect, normal mood - Skin Skin exam: Present: warm, dry, intact, normal color. Absent: rash <Curtis Clark - Last Filed: 02/21/17 17:21> Vital Signs: Vital Signs Temperature 98.3 F 02/21/17 14:04 Pulse Rate 85 02/21/17 15:01 Respiratory Rate 20 02/21/17 15:01 Blood Pressure 116/75 02/21/17 15:01 O2 Sat by Pulse Oximetry 99 02/21/17 15:01 Course - Consultations Time: 16:11 Time: 17:21 <Curtis Clark - Last Filed: 02/21/17 17:21> <Roberto Carlos Mcbride - Last Filed: 02/21/17 18:28> Course Narrative: This patient in preparation to [facility] transfer has picked an area inside the rectum to the point that he has a gushing bleeding wound. Surgery will be consulted to evaluate this. (Roberto Carlos Mcbride) - Reevaluation(s) Reevaluation #1: Discussed with family the obvious need for hospital admission due to rectal bleeding. (Roberto Carlos Mcbride) - Consultations Consultation #1: [facility] was consulted (Curtis Clark) Consultation #2: Signed out to Dr. Mcbride ER doctor (Curtis Clark) Consultation #3: Dr. Rachel consulted to evaluate the bleeding wound. (Roberto Carlos Mcbride) Additional Consultation(s): Patient seen in consultation with Dr. Duarte who will see the patient as quality consultant for rectal bleed but has stated this is a nonsurgical problem at this point and would defer to hospitalist for admission. The hospitalist service was ultimately consulted and they will admit the patient for further evaluation treatment. (Roberto Carlos Mcbride) Results - Labs CBC & BMP: 02/21/17 15:20 02/21/17 15:20 <Curtis Clark - Last Filed: 02/21/17 17:21> - Labs CBC & BMP: 02/21/17 15:20 02/21/17 15:20 <Roberto Carlos Mcbride - Last Filed: 02/21/17 18:28> - Labs Labs: I reviewed the laboratory noted the anemia. (Roberto Carlos Mcbride) Disposition <Curtis Clark - Last Filed: 02/21/17 17:21> Case discussed with: patient, patient's family Time of Disposition: 18:28 <Roberto Carlos Mcbride - Last Filed: 02/21/17 18:28> Clinical Impression: Rectal bleeding Disposition: Still a Patient Condition: Guarded
--- NOTE | 2017-02-21 16:11 | CT Report ---
CT head/brain wo con Indication: Mental status changes. CT BRAIN WITH AND WITHOUT CONTRAST DLP: 2085 mGy*cm. One or more of the following dose reduction techniques was used: Automated exposure control, adjustment of the mA and/or kV according the patient size, or use of iterative reconstruction techniques. Comparison: 03/14/2010. Date of admission: 02/21/2017. Technique: Axial CT images of the brain were obtained before and after the IV administration of Omnipaque 350, 80 cc. Findings: Persistent septum pellucidum and vergae again noted. Generalized atrophy has progressed with increased patchy periventricular white matter hypodensity. Cortical gordon-white junction is a ganglia structures remain well-defined otherwise. No acute hemorrhage, mass or mass effect. No bone lesions. There is mild right ethmoid mucosal thickening. The remainder paranasal sinuses and mastoid air cells are clear. Impression: 1. No acute intracranial pathology. 2. Progressive generalized atrophy and chronic small vessel ischemic change since 2009. 3. Very mild right ethmoid sinus disease. PROCEDURE INTERPRETED AT [facility] DEPARTMENT OF RADIOLOGY Final Report Signed by: Shahid Preston M.D.
[2017-02-21 16:47] LABS: Apearance,Urine CLEAR (Clear); Bilirubin,Urine Negative (Negative); Blood, Urine Negative (Negative); Glucose,Urine (UA) Negative (Negative); Ketones,Urine 20 mg/dL (Negative); Mucus,Urine Occasional /LPF (Occasional); Nitrite,Urine Negative (Negative); Protein,Urine Negative; RBC,Urine 1 /HPF (0-4); Urine Color Yellow (Yellow); Urine Specific Gravity 1.019 (1.001-1.035); Urine Urobilinogen < 2.0 EU/DL (0.2-1.0); WBC,Urine 1 /HPF (0-6)
[2017-02-21 16:53] LABS: Barbiturates Screen,Urine Negative (Negative); Benzodiazepines Screen,Urine Positive (Negative); Cannabinoid Screen,Urine Negative (Negative); Opiate Screen,Urine Positive (Negative); Phencyclidine Screen,Urine Negative (Negative)
[2017-02-21] MEDS ORDERED: ONDANSETRON 4 MG/2 ML VIAL IV PRN (19:13)
[2017-02-21] MEDS ORDERED: ZALEPLON 5 MG CAPSULE PO PRN (19:13)
[2017-02-21] MEDS ORDERED: ACETAMINOPHEN 325 MG TABLET PO PRN (19:13)
--- NOTE | 2017-02-21 19:56 | Hospitalist History & Physical ---
Assessment and Plan (1) Lower gastrointestinal hemorrhage Status: Acute Assessment and plan: Admit for observation. Repeat hemoglobin and hematocrit every 6 hours. Consult GI. Patient was seen by Dr. Duarte in the emergency department. No surgeries planned at this time. Current Visit: Yes (2) Hemorrhoids Status: Acute Current Visit: Yes History of Present Illness Chief complaint: Rectal bleeding History of present illness: Mr. Herrmann is a 66 year old male who was brought to the ED via EMS for further evaluation of abdominal pain with an onset of this morning. Pt recently visited the ED on 02/12/2017 for GI bleed and has a PMHx of lower gastrointestinal hemorrhoids. I have reviewed the patient's medical record from the previous hospitalization. Discharge summary reveals: Mr. Herrmann is a 66-year-old white male with history of CVA, [place], hypertension, lower GI bleed and hemorrhoids who presented to the emergency room on 02/12/2017 with complaints of asa red blood per rectum. Patient had been expressing bloody stool and sometimes asa red blood per rectum even while urinating. He was subsequently admitted with lower GI bleed and leukocytosis. GI was consulted and the patient was scheduled for colonoscopy. However, patient had a difficult time with bowel prep so his colonoscopy had to be pushed back by a day. On 02/15/2017, patient underwent a colonoscopy with biopsy which revealed a stercoral ulceration from chronic constipation. GI recommends MiraLAX and increase p.o. intake of fluids with the possibility of a diverting colostomy if the symptoms continue. During hospitalization, patient also continued to experience blood loss anemia with his H&H dropping as low as 6.9 and 21.6. He was subsequently transfused with 2 units of packed red blood cells and responded appropriately. At the time of discharge, H&H is up to 10.2 and 31.1. Urine culture grew Morganella morganii, and the patient was started on IV Rocephin with appropriate response. Today the patient's daughter daughter states that she received a phone call that pt was bleeding from the rectum due to digging in the rectum which prompted visit to ED. the patient reports these are the same symptoms he had during the previous hospital stay. He was seen in the emergency department by general surgery and was referred to the hospital service for admission with serial labs and transfusion as needed. GI will be reconsulted. Home Medications Medication Instructions Recorded Confirmed Type ALPRAZolam [Xanax] 1 mg PO Q8H PRN 03/21/15 02/12/17 History Lovastatin 40 mg PO BID 03/21/15 02/12/17 History Tamsulosin [Flomax] 0.4 mg PO DAILY 03/21/15 02/12/17 History Aspirin EC Tab 81 mg PO DAILY 02/12/17 02/12/17 History Baclofen Tab [Lioresal] 20 mg PO TID 02/12/17 02/12/17 History Duloxetine HCl [Duloxetine] 90 mg PO DAILY 02/12/17 02/12/17 History diphenhydrAMINE HCl 25 mg PO BEDTIME 02/12/17 02/12/17 History [diphenhydrAMINE Tab] Polyethylene Glycol Powder 17 gm PO DAILY 02/18/17 Rx [Miralax] Allergies Allergy/AdvReac Type Severity Reaction Status Date / Time No Known Allergies Allergy Verified 02/12/17 13:44 Medical,Surgical,& Family Hx - Medical History Cardio: History of: Aneurysm, CAD, [place] (x 2) Psychological: No history of: Anxiety Disorders, ADHD, Behavior Problems, Bipolar Disorder, Depression, Previous Suicide Attempt, Psychiatric/Substance Abuse Tx, Schizophrenia, Violent Behavior, Psychiatric Problems Neurology: History of: Cerebrovascular Accident (with resulting left hemiparesis , CVA 2) No history of: Seizures Endocrine: History of: Dyslipidemia Genitourinary: History of: Prostate Problems (BPH) Gastrointestinal: History of: Hemorrhoids - Family History Family History: Reports;: Family Heart Disease, Family Hypertension - Social History Smoking Status: Never smoker Frequency of Alcohol Use: None Type of Drug Use: None Marital Status: Lives With:: Alone 12 point system: reviewed and no additional remarkable complaints except as stated Exam - Constitutional Vitals: Period Temp Pulse Resp BP Sys/Farr Pulse Ox Last 24 Hr 98.3 F-98.3 F 85-111 16-20 91-145/54-91 97-100 Exam: Constitutional System: Mild distress. No tremulousness. Head: Normocephalic, atraumatic. Ears, Nose and Throat System: No pain or tenderness. No epistaxis or discharge Eyes System: Pupils equal, round, and reactive. Extraocular muscles intact. Neck: Supple, without adenopathy, No jugular venous distention. No thyromegaly, neck mass, or prior surgery apparent. Respiratory System: Chest clear to auscultation. Cardiovascular System: Heart with regular rate and rhythm. No murmur. GI System: Abdomen soft, nontender. Normo active bowel sounds present. Visual inspection of the rectum shows blood without active bleeding. Musculoskeletal System: limbs with no pedal edema. Full distal pulses. Neurological System: No discernable sensory deficit. No aphasia. numbness in lower extremities with limb deformity Psychiatric System: Conversation is rational Results - Labs CBC & BMP: 02/21/17 15:20 02/21/17 15:20 Lab Results: I have reviewed the past 24 hour labs
[2017-02-21] MEDS: SODIUM CHLORIDE 0.9% 1,000 ML IV SCH (21:15)
[2017-02-21] MEDS: traZODone 50 MG TABLET PO PRN (21:36)
--- NOTE | 2017-02-21 22:09 | General Surgery Consult Note ---
Assessment and Plan (1) Lower gastrointestinal hemorrhage Status: Acute Assessment and plan: The patient is admitted with a stable lower GI bleed. Plan for observation and serial hemoglobin. No surgical intervention is planned at this time. Current Visit: Yes History of Present Illness Chief complaint: rectal bleeding History of present illness: Mr. Herrmann is a 66 year old male with multiple medical problems admitted through the ER with rectal bleeding. He was recently admitted for the same diagnosis and Dr. Belcher found a stercoral ulcer in the distal rectum that was the cause of the bleeding. The bleeding stopped and the patient was discharged. He has reportedly been scratching his anus and giving himself digital stimulation and possibly even scratching a wound in his anal canal. He was brought in for rectal bleeding presumably from this. His hemoglobin was stable in the ER and he was hemodynamically normal. I saw and examined him in the ER and he has since been admitted to the floor. Home Medications Medication Instructions Recorded Confirmed Type ALPRAZolam [Xanax] 1 mg PO Q8H PRN 03/21/15 02/12/17 History Lovastatin 40 mg PO BID 03/21/15 02/12/17 History Tamsulosin [Flomax] 0.4 mg PO DAILY 03/21/15 02/12/17 History Aspirin EC Tab 81 mg PO DAILY 02/12/17 02/12/17 History Baclofen Tab [Lioresal] 20 mg PO TID 02/12/17 02/12/17 History Duloxetine HCl [Duloxetine] 90 mg PO DAILY 02/12/17 02/12/17 History diphenhydrAMINE HCl 25 mg PO BEDTIME 02/12/17 02/12/17 History [diphenhydrAMINE Tab] Polyethylene Glycol Powder 17 gm PO DAILY 02/18/17 Rx [Miralax] Allergies Allergy/AdvReac Type Severity Reaction Status Date / Time No Known Allergies Allergy Verified 02/12/17 13:44 Medical,Surgical,& Family Hx - Medical History Cardio: History of: Aneurysm, CAD, [place] (x 2) Psychological: No history of: Anxiety Disorders, ADHD, Behavior Problems, Bipolar Disorder, Depression, Previous Suicide Attempt, Psychiatric/Substance Abuse Tx, Schizophrenia, Violent Behavior, Psychiatric Problems Neurology: History of: Cerebrovascular Accident (with resulting left hemiparesis , CVA 2) No history of: Seizures Endocrine: History of: Dyslipidemia Genitourinary: History of: Prostate Problems (BPH) Gastrointestinal: History of: Hemorrhoids - Family History Family History: Reports;: Family Heart Disease, Family Hypertension - Social History Smoking Status: Never smoker Frequency of Alcohol Use: None Type of Drug Use: None - Constitutional Constitutional: Present: as per HPI - EENT Nose, mouth and throat: Present: as per HPI - Cardiovascular Cardiovascular: Present: as per HPI - Respiratory Respiratory: Present: as per HPI - Gastrointestinal Gastrointestinal: Present: as per HPI - Genitourinary Genitourinary: Present: as per HPI - Musculoskeletal Musculoskeletal: Present: as per HPI - Neurological Neurological: Present: as per HPI - Endocrine Endocrine: Present: as per HPI Hematologic/Lymphatic: Present: as per HPI Exam - Constitutional Vitals: Period Temp Pulse Resp BP Sys/Farr Pulse Ox Last 24 Hr 98.3 F-98.3 F 85-111 16-20 91-145/54-91 97-100 General appearance: normal weight, no acute distress - Head Head exam: Present: normal inspection, normocephalic - Eye Eye exam: Present: EOMI Pupils: Present: KAUSHIK - ENT ENT exam: Present: normal exam Mouth exam: Present: normal external inspection - Neck Neck exam: Present: normal inspection, trachea midline - Respiratory Respiratory exam: Present: clear to auscultation bilaterally. Absent: accessory muscle use, chest wall tenderness - Cardiovascular Cardiovascular exam: Present: RRR - GI/Abdominal GI/Abdominal exam: Present: soft. Absent: tenderness, rebound - Anus/Rectum Anus/Rectum: other (rectal bleeding is present) - Extremities Exam Extremities exam: Present: normal inspection, normal capillary refill - Back Exam Back exam: Present: normal inspection - Neurological Exam Neurological exam: Present: alert, oriented X3 Speech: Present: normal - Skin Skin exam: Present: normal color, warm Results - Labs CBC & BMP: 02/21/17 15:20 02/21/17 15:20
[2017-02-22 05:33] LABS: Basophils % 0.3 % (0.0-0.8); Eosinophils # 0.2 10*3/uL (0.0-0.87); Hematocrit 23.5 VOL% (42.0-52.0); Hemoglobin 7.5 GM/DL (14.0-18.0); Immature Granulocytes % 0.6 %; Immature Granulocytes Absolute 0.04 #; Lymphocytes # 2.9 10*3/uL (1.4-4.0); Lymphocytes % 45.9 % (21.2-54.2); Mean Corpuscular HGB Conc 31.9 GM/DL (32-36); Mean Corpuscular Hemoglobin 28 PG (27-34); Mean Corpuscular Volume 88.3 FL (87-102); Mean Platelet Volume 8.5 FL (9.6-12.0); Monocytes # 0.4 10*3/uL (0.11-0.8); Monocytes % 6.6 % (1.7-12.7); Neutrophils # 2.8 10*3/uL (1.4-7.4); Neutrophils % 43.6 % (38.7-73.9); Platelet Count 281 T/CUMM (130-400); Red Blood Count 2.66 MC/CUMM (3.8-5.5); White Blood Count 6.4 T/CUMM (4-12)
[2017-02-22 05:37] LABS: Hematocrit 23.5 VOL% (42.0-52.0); Hemoglobin 7.3 GM/DL (14.0-18.0)
[2017-02-22 05:42] LABS: PT Patient Result 10.7 SECS
[2017-02-22] MEDS ORDERED: SODIUM CHLORIDE 0.9% 250 ML IV PRN (07:25)
--- NOTE | 2017-02-22 07:27 | General Surgery Progress Note ---
Assessment and Plan (1) Lower gastrointestinal hemorrhage Status: Acute Assessment and plan: Continue observation and transfusion as needed. If the patient stops picking at this area and constipation can be treated it should heal. Current Visit: Yes Subjective Patient reports: Present: no new complaints, blood in stool Narrative: Patient had a few more bloody bowel movements yesterday. His blood pressure is a little bit low this morning but it looks fine clinically. His bleeding stopped after midnight. He continues to scratch and digging in his rectum. Exam - Constitutional Vitals: Period Temp Pulse Resp BP Sys/Farr Pulse Ox Last 24 Hr 96.8 F-98.3 F 82-111 16-20 86-145/50-91 93-100 General appearance: normal weight, no acute distress - Head Head exam: Present: normal inspection, normocephalic - Eye Eye exam: Present: EOMI Pupils: Present: KAUSHIK - ENT ENT exam: Present: normal exam Mouth exam: Present: normal external inspection, normal voice - Neck Neck exam: Present: normal inspection, trachea midline - Respiratory Respiratory exam: Present: clear to auscultation bilaterally. Absent: accessory muscle use, chest wall tenderness - Cardiovascular Cardiovascular exam: Present: tachycardia. Absent: irregular rhythm, systolic murmur - GI/Abdominal GI/Abdominal exam: Present: normal bowel sounds, soft. Absent: mass, tenderness , rebound - Anus/Rectum Anus/Rectum: other (There is no active bleeding this morning) - Extremities Exam Extremities exam: Present: normal inspection, normal capillary refill - Back Exam Back exam: Present: normal inspection - Neurological Exam Neurological exam: Present: alert, oriented X3 Speech: Present: normal - Skin Skin exam: Present: normal color, warm Results - Labs CBC & BMP: 02/22/17 04:13 02/21/17 15:20
[2017-02-22] MEDS: SODIUM CHLORIDE 0.9% 1,000 ML IV SCH (09:47)
[2017-02-22 10:04] LABS: Hemoglobin 8.6 GM/DL (14.0-18.0)
--- NOTE | 2017-02-22 13:56 | Hospitalist Progress Note ---
Assessment and Plan (1) Lower gastrointestinal hemorrhage Status: Acute Assessment and plan: Unsure if actual GI bleed or is completely associated with him digging into his rectum. Previous colonoscopy this week with stercoral ulceration related to chronic constipation GI has been consulted Surgery has been consulted, no need for surgical intervention at the moment Current Visit: Yes Hospitalist: Subjective Interval history: No acute events overnight. Patient tells me that he is going to stop digging into his rectum, his family at bedside report that he has said this before and continues to do it. H/H down this morning with decreased blood pressure. Agree with blood transfusion. Patient will need a psych evaluation. Exam - Constitutional Vitals: Period Temp Pulse Resp BP Sys/Farr Pulse Ox Last 24 Hr 96.8 F-98.3 F 82-111 16-20 86-145/50-91 93-100 General appearance: normal weight - Head Head exam: Present: normocephalic, atraumatic - Eye Eye exam: Present: EOMI Pupils: Present: KAUSHIK - ENT ENT exam: Present: normal exam - Neck Neck exam: Present: normal inspection - Respiratory Respiratory exam: Present: clear to auscultation bilaterally. Absent: rhonchi, wheezes - Cardiovascular Cardiovascular exam: Present: regular rate and rhythm - GI/Abdominal GI/Abdominal exam: Present: normal bowel sounds, soft. Absent: tenderness, rebound - Extremities Exam Extremities exam: Present: normal inspection - Back Exam Back exam: Present: normal inspection - Neurological Exam Neurological exam: Present: alert, oriented X3 - Psychiatric Psychiatric exam: Present: normal mood - Skin Skin exam: Present: warm, intact Results - Labs CBC & BMP: 02/22/17 09:53 02/21/17 15:20
[2017-02-22] MEDS: traZODone 50 MG TABLET PO PRN (19:28)
--- NOTE | 2017-02-22 22:13 | Gastrointestinal Consult Note ---
Assessment and Plan (1) Lower gastrointestinal hemorrhage Status: Acute Assessment and plan: Recurrent rectal bleeding secondary to ulceration likely secondary to digital manipulation. He has poor insight into why he does this and it is likely related to his [facility] issues. This will be a difficult situation to manage since he has hemiplegia it is difficult to behind his right hands where he cannot digitally manipulate himself. Unfortunately this will not heal unless he ceases this activity. Carafate enemas or steroid enemas may be considered but his rectal vault is so voluminous and his tone decreased to the point that I am not sure he will be able to hold this in place. He will continue to have' s intermittent bleeding and continuing to monitor for transfusion is advised. There is no endoscopically feasible treatment for this lesion. It is likely to take several weeks for this to cease any bleeding. Consideration of surgical treatment largely would be limited to diverting colostomy although I am not certain this will alter his behavior and he may at that point start manipulating the colostomy creating additional issues. He states he will no longer digitally disimpact himself and will have to observe. I have nothing further to offer at this time. I will be out until Sunday call coverage if needed. Current Visit: Yes History of Present Illness Chief complaint: Recurrent rectal bleeding History of present illness: Mr. Herrmann is a 66 year old male With left hemiplegia who was readmitted for recurrent rectal bleeding. He was seen about a week ago and had colonoscopy performed which found what was thought to be a stercoral ulcer. He presented back to the emergency room today with recurrent rectal bleeding after plans for transfer him to the [facility] was discussed with his family. On further discussion it was found that he is manually extracting stool from his rectum which is likely to be the source of this ulceration. He is unable to give any adequate explanation for why he has this behavior but I suspect it is from his underlying psychiatric issues. He exhibits poor insight into his health issues. No family is present at this time to add additional information. Home Medications Medication Instructions Recorded Confirmed Type ALPRAZolam [Xanax] 1 mg PO Q8H PRN 03/21/15 02/22/17 History Lovastatin 40 mg PO BID 03/21/15 02/22/17 History Tamsulosin [Flomax] 0.4 mg PO DAILY 03/21/15 02/22/17 History Aspirin EC Tab 81 mg PO DAILY 02/12/17 02/22/17 History Baclofen Tab [Lioresal] 20 mg PO TID 02/12/17 02/22/17 History Duloxetine HCl [Duloxetine] 90 mg PO DAILY 02/12/17 02/22/17 History diphenhydrAMINE HCl 25 mg PO BEDTIME 02/12/17 02/22/17 History [diphenhydrAMINE Tab] Polyethylene Glycol Powder 17 gm PO BEDTIME 02/22/17 02/22/17 History [Miralax] Allergies Allergy/AdvReac Type Severity Reaction Status Date / Time No Known Allergies Allergy Verified 02/12/17 13:44 Medical,Surgical,& Family Hx - Medical History Cardio: History of: Aneurysm, CAD, [place] (x 2) Psychological: No history of: Anxiety Disorders, ADHD, Behavior Problems, Bipolar Disorder, Depression, Previous Suicide Attempt, Psychiatric/Substance Abuse Tx, Schizophrenia, Violent Behavior, Psychiatric Problems Neurology: History of: Cerebrovascular Accident (with resulting left hemiparesis , CVA 2) No history of: Seizures Endocrine: History of: Dyslipidemia Genitourinary: History of: Prostate Problems (BPH) Gastrointestinal: History of: Hemorrhoids - Family History Family History: Reports;: Family Heart Disease, Family Hypertension - Social History Smoking Status: Never smoker Frequency of Alcohol Use: None Type of Drug Use: None - Constitutional Constitutional: Absent: anorexia, chills, fatigue - EENT Eyes: Absent: diplopia Nose, mouth and throat: Absent: dysphagia, epistaxis - Cardiovascular Cardiovascular: Absent: chest pain at rest, chest pain with activity, edema - Respiratory Respiratory: Absent: cough, dyspnea on exertion, wheezing - Gastrointestinal Gastrointestinal: Absent: abdominal pain, bloating, dyspepsia, nausea - Genitourinary Genitourinary: Absent: flank pain, hematuria - Neurological Neurological: Present: behavioral changes, syncope - Psychiatric Psychiatric: Present: anxiety - Hematologic/Lymphatic Hematologic/Lymphatic: Absent: easy bruising, lymphadenopathy Exam - Constitutional Vitals: Period Temp Pulse Resp BP Sys/Farr Pulse Ox Last 24 Hr 96.9 F-98.9 F 82-109 18-91 86-172/50-92 93-99 General appearance: normal weight, no acute distress - Head Head exam: Present: normal inspection, normocephalic, atraumatic - Eye Eye exam: Present: EOMI. Absent: conjunctival injection, scleral icterus Pupils: Present: KAUSHIK. Absent: dilated - ENT ENT exam: Present: normal oropharynx - Neck Neck exam: Absent: lymphadenopathy, thyromegaly - Respiratory Respiratory exam: Present: clear to auscultation bilaterally. Absent: accessory muscle use, rales - Cardiovascular Cardiovascular exam: Present: regular rate and rhythm - GI/Abdominal GI/Abdominal exam: Present: normal bowel sounds. Absent: distended, rebound, soft - Extremities Exam Extremities exam: Absent: edema - Neurological Exam Neurological exam: Present: alert, oriented X3, other (Left hemiplegia) - Psychiatric Psychiatric exam: Present: depressed, flat affect - Skin Skin exam: Present: warm, dry Results - Labs CBC & BMP: 02/22/17 09:53 02/21/17 15:20 Lab Results: I have reviewed the past 24 hour labs
[2017-02-23] MEDS: SODIUM CHLORIDE 0.9% 1,000 ML IV SCH (03:27)
[2017-02-23 06:31] LABS: Calcium 6.9 MG/DL (8.5-10.1); Magnesium 2.1 MG/DL (1.8-2.4); Osmolality,Calculated 273.4 MOS/KG (273-304); Potassium 3.8 MMOL/L (3.5-5.1)
[2017-02-23 06:38] LABS: Basophils % 0.3 % (0.0-0.8); Eosinophils # 0.2 10*3/uL (0.0-0.87); Eosinophils % 2.3 % (0.00-10.9); Hematocrit 27.9 VOL% (42.0-52.0); Hemoglobin 9.2 GM/DL (14.0-18.0); Immature Granulocytes % 0.4 %; Immature Granulocytes Absolute 0.03 #; Lymphocytes % 28.2 % (21.2-54.2); Mean Corpuscular Hemoglobin 28 PG (27-34); Mean Corpuscular Volume 85.3 FL (87-102); Mean Platelet Volume 8.3 FL (9.6-12.0); Monocytes # 0.4 10*3/uL (0.11-0.8); Neutrophils # 4.5 10*3/uL (1.4-7.4); Neutrophils % 63.8 % (38.7-73.9); Platelet Count 243 T/CUMM (130-400); Red Blood Count 3.27 MC/CUMM (3.8-5.5); Red Cell Distribution Width 15.2 % (9.3-17.3); White Blood Count 7.1 T/CUMM (4-12)
--- NOTE | 2017-02-23 09:39 | General Surgery Progress Note ---
Assessment and Plan (1) Lower gastrointestinal hemorrhage Status: Acute Assessment and plan: Patient responded well to transfusion. Bleeding is slowing down. I do not think surgery would benefit this patient. Please call back with further questions Current Visit: Yes Subjective Patient reports: Present: no new complaints, bowel movement, blood in stool, afebrile Narrative: There is less hematochezia as the days go on. The patient is not irritating the area. Exam - Constitutional Vitals: Period Temp Pulse Resp BP Sys/Farr Pulse Ox Last 24 Hr 97.6 F-98.9 F 82-109 18-20 108-172/58-92 97-98 General appearance: normal weight, no acute distress - Head Head exam: Present: normal inspection, normocephalic - Eye Eye exam: Present: EOMI. Absent: scleral icterus Pupils: Present: KAUSHIK - ENT ENT exam: Present: normal exam Mouth exam: Present: normal external inspection, normal voice - Neck Neck exam: Present: normal inspection, trachea midline - Respiratory Respiratory exam: Present: clear to auscultation bilaterally. Absent: accessory muscle use, chest wall tenderness - Cardiovascular Cardiovascular exam: Present: RRR. Absent: systolic murmur, tachycardia - GI/Abdominal GI/Abdominal exam: Present: soft. Absent: tenderness, rebound - Extremities Exam Extremities exam: Present: normal inspection, normal capillary refill - Back Exam Back exam: Present: normal inspection - Neurological Exam Neurological exam: Present: alert, oriented X3 Speech: Present: normal - Skin Skin exam: Present: normal color, warm Results - Labs CBC & BMP: 02/23/17 05:24 02/23/17 05:24
[2017-02-23 11:38] VITALS: BP 142/87
--- NOTE | 2017-02-23 12:47 | Discharge Summary ---
Hospital Course - Hospital Course Hospital Course: Mr. Herrmann is a 66 year old male who was brought to the ED via EMS for further evaluation of abdominal pain with onset the morning of admission. Pt recently visited the ED on 02/12/2017 for GI bleed and has a PMHx of lower gastrointestinal hemorrhoids. Mr. Herrmann is a 66-year-old white male with history of CVA, PA, hypertension, lower GI bleed and hemorrhoids with recent admission on 02/12/2017 with complaints of asa red blood per rectum. Patient had been expressing bloody stool and sometimes asa red blood per rectum even while urinating. He was subsequently admitted with lower GI bleed and leukocytosis. GI was consulted and the patient underwent a colonoscopy, which revealed a stercoral ulceration from chronic constipation. GI recommended MiraLAX and increased p.o. intake of fluids with the possibility of a diverting colostomy if the symptoms continued. At the time of discharge, H&H is up to 10.2 and 31.1. Urine culture grew Morganella morganii, and the patient was started on IV Rocephin with appropriate response. He presented back to the ED , the patient's daughter states that she received a phone call that pt was bleeding from the rectum due to digging in the rectum which prompted visit to ED. the patient reports these are the same symptoms he had during the previous hospital stay. GI and surgery was consulted. No surgical or endoscopic intervention was warranted. The ulcer should heal if he stops picking at it. He received 2 units PRBC transfusion with appropriate response. He has now reached maximal benefit of inpatient stay and will be discharged to [place] for psychiatric evaluation. - Time spent with patient Time with patient DS: Less than 30 minutes (28) Diagnosis - Discharge Diagnosis (1) Lower gastrointestinal hemorrhage Status: Resolved Discharge Plan - Discharge Data Disposition: Disch/Xfer to Psych Hos Condition at Discharge: Stable Discharge Diet: advance to your usual diet Activity: increase activity as tolerated Hygiene: no restrictions Weight Bearing at Discharge: weight bear as tolerated Driving: no restrictions Contact your physician if you experience:: Bleeding - Discharge Medications Continue Tamsulosin [Flomax] 0.4 mg PO DAILY Lovastatin 40 mg PO BID ALPRAZolam [Xanax] 1 mg PO Q8H PRN PRN Reason: Anxiety Baclofen Tab [Lioresal] 20 mg PO TID Aspirin EC Tab 81 mg PO DAILY Duloxetine HCl [Duloxetine] 90 mg PO DAILY Polyethylene Glycol Powder [Miralax] 17 gm PO BEDTIME Discontinued diphenhydrAMINE HCl [diphenhydrAMINE Tab] 25 mg PO BEDTIME - Follow Up or Referral - Forms/Instructions Exam - Constitutional Vitals: Period Temp Pulse Resp BP Sys/Farr Pulse Ox Last 24 Hr 97.8 F-98.9 F 82-109 18-20 108-172/58-92 95-98 General appearance: normal weight - Head Head exam: Present: normocephalic, atraumatic - Eye Eye exam: Present: EOMI Pupils: Present: KAUSHIK - ENT ENT exam: Present: normal exam - Neck Neck exam: Present: normal inspection - Respiratory Respiratory exam: Present: clear to auscultation bilaterally - Cardiovascular Cardiovascular exam: Present: regular rate and rhythm - GI/Abdominal GI/Abdominal exam: Present: normal bowel sounds, soft. Absent: tenderness, rebound - Extremities Exam Extremities exam: Present: normal inspection - Back Exam Back exam: Present: normal inspection - Neurological Exam Neurological exam: Present: alert, oriented X3 - Psychiatric Psychiatric exam: Absent: flat affect, suicidal ideation - Skin Skin exam: Present: warm, intact Discharge Results Labs on day of discharge: Labs from last 24 hours 02/23/17 02/23/17 02/22/17 05:24 05:24 04:13 WBC 7.1 RBC 3.27 L D Hgb 9.2 L Hct 27.9 L MCV 85.3 L MCH 28 MCHC 33.0 RDW 15.2 Plt Count 243 MPV 8.3 L Neut % (Auto) 63.8 Lymph % (Auto) 28.2 [place] % (Auto) 5.0 Eos % (Auto) 2.3 Baso % (Auto) 0.3 Neut # (Auto) 4.5 Lymph # (Auto) 2.0 [place] # (Auto) 0.4 Eos # (Auto) 0.2 Baso # (Auto) 0.0 Immature Gran % 0.4 Nucleated RBC % 0.0 Immature Gran # 0.03 Nucleated RBCs # 0.00 Sodium 140 Potassium 3.8 Chloride 110 H Carbon Dioxide 20 L Anion Gap 13.8 BUN 6 L Creatinine 0.40 L GFR Calculation 116 BUN/Creatinine Ratio 15.00 Glucose 49 L Calculated Osmolality 273.4 Calcium 6.9 L Magnesium 2.1 Blood Type Cancelled Antibody Screen Cancelled Crossmatch See Detail Blood Bank Comment Cancelled DS: Provider Date of admission: 02/22/17 14:28 Primary care physician: . No PCP Attending physician on admission: Leroy Rodriguez MD Consults: 02/21/17 19:15 Consult to Physician [CONS] Routine Comment: rectal bleeding Consulting Provider: Ronald Ceja Consulting Provider Notified: Yes When should Consulting Provider be notified: Now Consult to Specialist Group: Gastroenterology When should Consulting Provider be notified: Now Person Notified: RONNIE Date Notified: 02/22/17 Time Notified: 08:31 Discharging clinician: Pao Gross MD
[2017-02-23] MEDS ORDERED: BACLOFEN 20 MG TABLET PO SCH (15:00)
[2017-02-23] MEDS ORDERED: POLYETHYLENE GLYCOL POWDER 17 GM PACK PO SCH (21:00)
[2017-02-23] MEDS ORDERED: LOVASTATIN 20 MG TABLET PO SCH (21:00)
[2017-02-24] MEDS ORDERED: DULoxetine 30 MG CAPSULE PO SCH (09:00)
[2017-02-24] MEDS ORDERED: TAMSULOSIN 0.4 MG CAPSULE PO SCH (09:00)
[2017-02-24] MEDS ORDERED: ASPIRIN EC 81 MG TABLET PO SCH (09:00)
== END 2017-02-23 14:30 | DRG 394 ==
LOC: EDUNIT# → EDBD → N.ED 13:55 → N.EDINP 13:55 → SUATTDRO 19:13 → N.4E 20:13
PROVIDERS: ADMIT Family Medicine; ATTEND Internal Medicine

== ENCOUNTER 2017-06-09 13:44 | Inpatient (IN) ==
--- NOTE | 2017-06-09 15:45 | Emergency Department Note ---
Arrival - Arrival Chief Complaint: Altered Mental Status Stated Complaint: altered mental status; hallucinations ED Nursing Triage Note: Pt arrived via ems with c/o altered mental status and hallucinations. pt reports that he doesnt remember hallucinating. States his family said he was confused and seeing things that were not there. EMS reports AMS x 3 days per family. Pt is currently alert and oriented x 3. Mode of Arrival: Stretcher Limitations: Altered Mental Status Source: Patient, Family Time Seen by Provider: 06/09/17 15:41 - History of Present Illness HPI Narrative: This 66-year-old white male presents per the family with significant problems with intermittent confusion, auditory hallucinations, and visual hallucinations over the last 3 days. The patient himself states he does not have any hallucinations but then talks in a nonsensical manner, skipping from one subject to another. The patient has a prior stay at [facility] for schizoaffective activity. He currently is on no medication the family states [facility] did not help him in any way. He is status post stroke with left hemiparesis but has not been diagnosed in the past with dementia or any significant brain damage. Currently the patient is in no acute distress medically. Onset (ago): hour(s) (Patient presents 24 hours post onset of symptoms) Allergies/Adverse Reactions: Allergies Allergy/AdvReac Type Severity Reaction Status Date / Time No Known Allergies Allergy Verified 02/12/17 13:44 Home Medications: Home Medications Medication Instructions Recorded Confirmed Type ALPRAZolam [Xanax] 1 mg PO Q8H PRN 03/21/15 06/09/17 History Lovastatin 40 mg PO BID 03/21/15 06/09/17 History Tamsulosin [Flomax] 0.4 mg PO DAILY 03/21/15 06/09/17 History Aspirin EC Tab 81 mg PO DAILY 02/12/17 06/09/17 History Baclofen Tab [Lioresal] 20 mg PO TID 02/12/17 06/09/17 History Duloxetine HCl [Duloxetine] 90 mg PO DAILY 02/12/17 06/09/17 History Polyethylene Glycol Powder 17 gm PO BEDTIME PRN 02/22/17 06/09/17 History [Miralax] Review of System - Review of System 12 point system: reviewed and no additional remarkable complaints except as stated - Review of System Constitutional: Present: as per HPI Psychiatric: Present: as per HPI Medical,Surgical,& Family Hx - Medical History Cardio: History of: Aneurysm, CAD, WI (x 2) Psychological: No history of: Anxiety Disorders, ADHD, Behavior Problems, Bipolar Disorder, Depression, Previous Suicide Attempt, Psychiatric/Substance Abuse Tx, Schizophrenia, Violent Behavior, Psychiatric Problems Neurology: History of: Cerebrovascular Accident (with resulting left hemiparesis , CVA 2) No history of: Seizures Endocrine: History of: Dyslipidemia Genitourinary: History of: Prostate Problems (BPH) Gastrointestinal: History of: Hemorrhoids - Surgical History Cardiac Surgeries: Sugical HX of: Cardiac Surgery (bypass in the ) - Family History Family History: Reports;: Family Heart Disease, Family Hypertension - Social History Smoking Status: Never smoker Frequency of Alcohol Use: None Type of Drug Use: None Exam Physical Examination: GENERAL: Well developed, well nourished elderly white in no acute distress. HEENT: Normocephalic. No trauma. Moist mucous membranes. EOMI. PERRLA. ENT NML NECK: Supple. No adenopathy. CARDIAC: Regular. No murmurs. Heart rate 115 CHEST: Clear to auscultation. No respiratory distress. O2 sat 98% ABDOMEN: Soft. Nontender. Active bowel sounds. EXTREMITIES: No trauma. Contracture left forearm. No pedal edema. SKIN: No diaphoresis. No rash. NEURO: Alert. Oriented 3 but flight of ideas and nonsensical topics. Lip tape paresis with right neurovascular function intact. Vital Signs: Vital Signs Temperature 97.5 F L 06/09/17 13:50 Pulse Rate 119 H 06/09/17 16:00 Respiratory Rate 15 06/09/17 16:00 Blood Pressure 145/90 06/09/17 16:00 O2 Sat by Pulse Oximetry 94 L 06/09/17 16:00 Course - Reevaluation(s) Reevaluation #1: Discussed with family the results of his studies and the possibility of a large recent stroke on CT. - Consultations Consultation #1: Discussed with hospitalist service who will admit for further evaluation treatment. Results - Labs CBC & BMP: 06/09/17 14:42 06/09/17 14:42 Labs: I reviewed the laboratory and diffuse mild abnormalities, particularly the low potassium. Also noted the clean urines. - Impressions EKG: Sinus tachycardia 110 with normal WV interval and right ventricular conduction delay. Nonspecific ST changes with no acute injury pattern noted. - Diagnostic Findings Procedure: Chest x-ray: image reviewed by me, report reviewed by me (Status post median sternotomy otherwise negative chest), CT: image reviewed by me, report reviewed by me (Moderate cerebral atrophy as well as microvascular ischemia. There was a subacute lacunar ischemia in the left smiley radiata measuring 13 mm.) Disposition Clinical Impression: Stroke, Altered mental status Case discussed with: patient's family Disposition: Still a Patient Condition: Stable Time of Disposition: 16:42
[2017-06-09 15:53] LABS: Basophils % 0.4 % (0.0-0.8); Eosinophils % 0.3 % (0.00-10.9); Hematocrit 43.7 VOL% (42.0-52.0); Hemoglobin 13.9 GM/DL (14.0-18.0); Immature Granulocytes % 0.3 %; Immature Granulocytes Absolute 0.02 #; Lymphocytes % 27.8 % (21.2-54.2); Mean Corpuscular HGB Conc 31.8 GM/DL (32-36); Mean Corpuscular Hemoglobin 24 PG (27-34); Mean Corpuscular Volume 76.7 FL (87-102); Mean Platelet Volume 9.5 FL (9.6-12.0); Monocytes # 0.5 10*3/uL (0.11-0.8); Monocytes % 7.5 % (1.7-12.7); Neutrophils # 4.6 10*3/uL (1.4-7.4); Neutrophils % 63.7 % (38.7-73.9); Platelet Count 284 T/CUMM (130-400); Red Cell Distribution Width 15.3 % (9.3-17.3); White Blood Count 7.2 T/CUMM (4-12)
[2017-06-09 15:59] LABS: PT Patient Result 10.8 SECS; Partial Thromboplastin Time 28.3 SECS (0-40)
[2017-06-09 16:13] LABS: Apearance,Urine CLEAR (Clear); Bilirubin,Urine Negative (Negative); Blood, Urine Negative (Negative); Glucose,Urine (UA) Negative (Negative); Ketones,Urine 5 mg/dL (Negative); Mucus,Urine Occasional /LPF (Occasional); Nitrite,Urine Negative (Negative); Protein,Urine Negative; RBC,Urine 2 /HPF (0-4); Urine Color Yellow (Yellow); Urine Specific Gravity 1.014 (1.001-1.035); Urine Urobilinogen < 2.0 EU/DL (0.2-1.0); WBC,Urine <1 /HPF (0-6)
--- NOTE | 2017-06-09 16:13 | Order Completion Report ---
See report scanned to EMR
[2017-06-09 16:16] LABS: Alanine Aminotransferase 13 U/L (16-61); Albumin 3.6 G/DL (3.4-5.0); Alkaline Phosphatase 92 U/L (45-117); Aspartate Amino Transferase 15 U/L (0-37); Blood Urea Nitrogen 16 MG/DL (7-18); Calcium 9.1 MG/DL (8.5-10.1); Glucose 80 MG/DL (74-106); Osmolality,Calculated 267.2 MOS/KG (273-304); Potassium 3.1 MMOL/L (3.5-5.1); Sodium 134 MMOL/L (136-145); Total Protein 8.5 G/DL (6.4-8.3); Troponin I Only 0.025 NG/ML (0.00-0.045)
[2017-06-09] MEDS ORDERED: POTASSIUM BICARB EFFERVESCENT 25 MEQ TABLET PO ONE ×2 (16:24→17:02)
--- NOTE | 2017-06-09 16:26 | CT Report ---
History: Mental status changes Date: 06/09/2017 Study: CT head without contrast Comparison exam: February 21, [address] sections were obtained through the brain without contrast. The ventricles are midline in position without evidence of hydrocephalus. There is no mass or area of parenchymal hemorrhage. There is no gross CT evidence of acute cortical stroke. There is mild to moderate diffuse cerebral atrophy. There is a small amount of ill-defined low density in the periventricular white matter without mass effect compatible with changes of small vessel disease. There is probable subacute or older lacunar ischemia in the left smiley radiata measuring approximately 13 mm. There is no extra-axial hematoma. The sinuses are generally clear. There is no obvious skull fracture. Impression: Subacute or older area of lacunar ischemia in the left smiley radiata. No parenchymal hemorrhage. No definite acute cortical stroke or acute changes otherwise This CT exam was performed using one or more the following dose reduction techniques: Automated exposure control, adjustment of the MA and/or KV according to patient size, or use of iterative reconstruction technique. PROCEDURE INTERPRETED AT [facility] DEPARTMENT OF RADIOLOGY Final Report Signed by: Dr. Magda Ceja
[2017-06-09 16:37] LABS: Barbiturates Screen,Urine Negative (Negative); Benzodiazepines Screen,Urine Positive (Negative); Cannabinoid Screen,Urine Negative (Negative); Opiate Screen,Urine Negative (Negative); Phencyclidine Screen,Urine Negative (Negative)
--- NOTE | 2017-06-09 17:01 | XRay Report ---
History: Altered mental status Date: 06/09/2017 Study: Chest x-ray AP portable Comparison exam: February 21, 2017 The cardiac silhouette is not enlarged. There is no mediastinal mass. The patient is status post prior median sternotomy. The pulmonary vasculature is not engorged. There is no gross pleural effusion. The lungs are well-expanded and generally clear. Osseous structures are similar. Impression: No definite acute cardiopulmonary process compared to the previous study PROCEDURE INTERPRETED AT [facility] DEPARTMENT OF RADIOLOGY Final Report Signed by: Dr. Magda Ceja
[2017-06-09] MEDS ORDERED: ACETAMINOPHEN 325 MG TABLET PO PRN (17:46)
[2017-06-09] MEDS ORDERED: POLYETHYLENE GLYCOL POWDER 17 GM PACK PO PRN (18:51)
[2017-06-09] MEDS ORDERED: ALPRAZolam 0.5 MG TABLET PO PRN (18:51)
--- NOTE | 2017-06-09 19:28 | Hospitalist History & Physical ---
Assessment and Plan (1) Altered mental status Status: Acute Assessment and plan: ADmit to icu. CT showed possible subacute infarct. Implement stroke protocol. Consult neurology. Follow-up MRI. Chest x-ray negative. Check labs. Lipid panel/a1c. BMP/CBC unremarkable currently. EKG stable. Current Visit: Yes (2) History of CVA (cerebrovascular accident) Status: Chronic Current Visit: Yes (3) Hypertension Status: Acute Assessment and plan: Restart home meds. Current Visit: Yes History of Present Illness Chief complaint: altered mental status History of present illness: Mr. Herrmann is a 66 year old white male with a history of hypertension, CVA, CO, CABG, dyslipidemia, GI bleed and hemorrhoids presents to the ED today for further evaluation of hallucinations and altered mental status. Patient is brought in by his [id number] who is also his auto garage attendant. Patient's family states that over the last 3 days he has become become increasingly confused with auditory and visual hallucinations. Pt has recently been evaluated by [facility] for schizoaffective behavior. Patient is oriented to person place and time but speaks in a nonsensical manner. On evaluation in ED, significant labs include Na [address] of head reveals subacute or older area of lacunar ischemia in the left smiley radiata. Case discussed with ER physician and hospitalist. Pt. will be admitted to the hospitalist service for further eval and treatment. Neurology will be consulted and and follow up MRI scheduled. Home Medications Medication Instructions Recorded Confirmed Type ALPRAZolam [Xanax] 1 mg PO Q8H PRN 03/21/15 06/09/17 History Lovastatin 40 mg PO BID 03/21/15 06/09/17 History Tamsulosin [Flomax] 0.4 mg PO DAILY 03/21/15 06/09/17 History Aspirin EC Tab 81 mg PO DAILY 02/12/17 06/09/17 History Baclofen Tab [Lioresal] 20 mg PO TID 02/12/17 06/09/17 History Duloxetine HCl [Duloxetine] 90 mg PO DAILY 02/12/17 06/09/17 History Polyethylene Glycol Powder 17 gm PO BEDTIME PRN 02/22/17 06/09/17 History [Miralax] Allergies Allergy/AdvReac Type Severity Reaction Status Date / Time No Known Allergies Allergy Verified 02/12/17 13:44 Medical,Surgical,& Family Hx - Medical History Cardio: History of: Aneurysm, CAD, CO (x 2) Psychological: No history of: Anxiety Disorders, ADHD, Behavior Problems, Bipolar Disorder, Depression, Previous Suicide Attempt, Psychiatric/Substance Abuse Tx, Schizophrenia, Violent Behavior, Psychiatric Problems Neurology: History of: Cerebrovascular Accident (with resulting left hemiparesis , CVA 2) No history of: Seizures Endocrine: History of: Dyslipidemia Genitourinary: History of: Prostate Problems (BPH) Gastrointestinal: History of: Hemorrhoids - Surgical History Cardiac Surgeries: Sugical HX of: Cardiac Surgery (bypass in the s) - Family History Family History: Reports;: Family Heart Disease, Family Hypertension - Social History Smoking Status: Never smoker Frequency of Alcohol Use: None Type of Drug Use: None Lives With:: Relay Tester Functional capacity: independent ambulation (with moderate assist; severe left sided weakness) ROS unobtainable: due to mental status (pt unable to fully answer questions due to confusion), other - Neurological Neurological: Present: confusion Exam - Constitutional Vitals: Period Temp Pulse Resp BP Sys/Farr Pulse Ox Last 24 Hr 97.5 F-98.9 F 105-119 13-20 107-154/66-95 94-98 General appearance: normal weight, no acute distress - Head Head exam: Present: normal inspection, normocephalic - Eye Eye exam: Present: EOMI Pupils: Present: KAUSHIK - Respiratory Respiratory exam: Present: clear to auscultation bilaterally. Absent: wheezes - GI/Abdominal GI/Abdominal exam: Present: normal bowel sounds, soft. Absent: tenderness - Extremities Exam Extremities exam: Present: edema. Absent: full ROM - Neurological Exam Neurological exam: Present: alert, oriented X3 - Psychiatric Psychiatric exam: Present: normal affect, normal mood - Skin Skin exam: Present: normal color, warm, dry Results - Labs CBC & BMP: 06/09/17 14:42 06/09/17 14:42 Lab Results: I have reviewed the past 24 hour labs
--- NOTE | 2017-06-09 20:04 | Ultrasound Report ---
Exam:US carotid duplex BI Date:06/09/2017 5:51 PM Indication: Altered mental status Color Doppler, wave form analysis, and grayscale analysis of the cervical carotid arteries was performed. There is mild partially calcified plaque in either carotid bulb. Waveform analysis shows proper directional flow of the cervical carotid arteries. There is antegrade flow in either vertebral artery. There is no abnormal increased peak systolic velocity within either internal carotid artery. Impression: There is 0-49% diameter reduction narrowing of either internal carotid artery using indirect NASCET criteria Right Side Flow velocities centimeters per second Common carotid artery: 65 Proximal ICA: 46 Distal ICA: 62 External carotid artery: 53 Vertebral artery: 32 ICA/CCA ratio: 0.0 Measurements in millimeters Distal ICA: 4.7 Left SIde Flow velocities centimeters per second Common carotid artery 79 Proximal ICA: 44 Distal ICA: 54 External carotid artery: 56 Vertebral artery: 53 ICA/CCA ratio: 2.8 Measurements in millimeters Distal ICA: 5.6 Today studies were performed utilizing indirect NASCET criteria PROCEDURE INTERPRETED AT [facility] DEPARTMENT OF RADIOLOGY Final Report Signed by: Dr. Magda Ceja
[2017-06-09] MEDS: LOVASTATIN 20 MG TABLET PO SCH (20:35)
[2017-06-09] MEDS: SODIUM CHLORIDE 0.9% 1,000 ML IV SCH (20:52)
[2017-06-09] MEDS: LORazepam 2 MG/1 ML VIAL IV PRN (20:52)
[2017-06-09] MEDS ORDERED: ZIPRASIDONE 20 MG/1 ML VIAL IM ONE (21:47)
[2017-06-09] MEDS: ZINC OXIDE PASTE 113 GM TUBE TOP SCH (23:02)
[2017-06-10] MEDS: LORazepam 2 MG/1 ML VIAL IV PRN (02:54)
[2017-06-10] MEDS ORDERED: ZIPRASIDONE 20 MG/1 ML VIAL IM PRN ×2 (04:13→09:45)
[2017-06-10 06:44] LABS: Basophils % 0.4 % (0.0-0.8); Eosinophils # 0.1 10*3/uL (0.0-0.87); Eosinophils % 0.7 % (0.00-10.9); Hematocrit 39.6 VOL% (42.0-52.0); Hemoglobin 12.4 GM/DL (14.0-18.0); Immature Granulocytes % 0.1 %; Immature Granulocytes Absolute 0.01 #; Lymphocytes # 2.9 10*3/uL (1.4-4.0); Mean Corpuscular HGB Conc 31.3 GM/DL (32-36); Mean Corpuscular Hemoglobin 24 PG (27-34); Mean Corpuscular Volume 77.8 FL (87-102); Mean Platelet Volume 9.6 FL (9.6-12.0); Monocytes # 0.8 10*3/uL (0.11-0.8); Monocytes % 10.4 % (1.7-12.7); Neutrophils # 3.5 10*3/uL (1.4-7.4); Neutrophils % 48.4 % (38.7-73.9); Platelet Count 266 T/CUMM (130-400); Red Blood Count 5.09 MC/CUMM (3.8-5.5); Red Cell Distribution Width 15.4 % (9.3-17.3); White Blood Count 7.2 T/CUMM (4-12)
[2017-06-10 07:46] LABS: Calcium 8.3 MG/DL (8.5-10.1); Magnesium 2.4 MG/DL (1.8-2.4); Potassium 3.5 MMOL/L (3.5-5.1); Thyroid Stimulating Hormone 2.37 uIU/ml (0.358-3.74)
[2017-06-10] MEDS: SODIUM CHLORIDE 0.9% 1,000 ML IV SCH ×2 (07:58→21:25)
[2017-06-10] MEDS: TAMSULOSIN 0.4 MG CAPSULE PO SCH (08:02)
[2017-06-10] MEDS: PANTOPRAZOLE 40 MG TABLET PO SCH (08:02)
[2017-06-10] MEDS: LOVASTATIN 20 MG TABLET PO SCH ×2 (08:02→21:25)
[2017-06-10] MEDS: DULoxetine 30 MG CAPSULE PO SCH (08:02)
[2017-06-10] MEDS: ASPIRIN EC 81 MG TABLET PO SCH (08:02)
--- NOTE | 2017-06-10 08:09 | Hospitalist Progress Note ---
Assessment and Plan (1) Schizo affective schizophrenia Status: Acute Assessment and plan: We will continue his previous medications. Current Visit: Yes (2) Altered mental status Status: Acute Assessment and plan: I do not know what his baseline mental status is. As noted above, he appears comfortable but is babbling incoherently in bed. He is unable to communicate. Current Visit: Yes (3) History of CVA (cerebrovascular accident) Status: Chronic Assessment and plan: It is not clear from the CT scan if he has had a new CVA or there is just evidence of old infarction. Current Visit: Yes Hospitalist: Subjective Interval history: Patient was admitted to the hospital last night with altered mental status. CT scan of the head showed a possible subacute lacunar infarction/ischemia of the left coronary radiata. He has a previous history of schizoaffective disorder. He is awake but babbling incoherently in bed. He is unable to communicate. Exam - Constitutional Vitals: Period Temp Pulse Resp BP Sys/Farr Pulse Ox Last 24 Hr 97.4 F-98.9 F 105-121 13-20 99-154/56-95 94-98 General appearance: no acute distress - Head Head exam: Present: normal inspection - Neck Neck exam: Present: normal inspection - Respiratory Respiratory exam: Present: clear to auscultation bilaterally - Cardiovascular Cardiovascular exam: Present: regular rate and rhythm - GI/Abdominal GI/Abdominal exam: Present: normal bowel sounds, soft - Extremities Exam Extremities exam: Present: normal inspection - Skin Skin exam: Present: normal color, warm, intact Results - Labs CBC & BMP: 06/10/17 05:12 06/10/17 05:12
[2017-06-10] MEDS: ZINC OXIDE PASTE 113 GM TUBE TOP SCH ×2 (08:55→21:25)
--- NOTE | 2017-06-10 10:45 | Neurology Consult Note ---
History of Present Illness History of present illness: Mr. Herrmann is a 66 year old white gentleman with a history of hypertension, CVA with residual left-sided weakness, WI, CABG, dyslipidemia, GI bleed and hemorrhoids admitted to the for further evaluation of hallucinations and altered mental status. Patient is brought in by his sister who is also his matrix worker. Patient's family states that over the last 3 days he has become become increasingly confused with auditory and visual hallucinations. Pt has recently been evaluated by [facility] for schizoaffective behavior. Patient is oriented to person place and time but speaks in a nonsensical manner. CT of head reveals subacute or older area of lacunar ischemia in the left smiley radiata. I am concerned this is probably decompensation of schizophrenia. Home Medications Medication Instructions Recorded Confirmed Type ALPRAZolam [Xanax] 1 mg PO Q8H PRN 03/21/15 06/09/17 History Lovastatin 40 mg PO BID 03/21/15 06/09/17 History Tamsulosin [Flomax] 0.4 mg PO DAILY 03/21/15 06/09/17 History Aspirin EC Tab 81 mg PO DAILY 02/12/17 06/09/17 History Baclofen Tab [Lioresal] 20 mg PO TID 02/12/17 06/09/17 History Duloxetine HCl [Duloxetine] 90 mg PO DAILY 02/12/17 06/09/17 History Polyethylene Glycol Powder 17 gm PO BEDTIME PRN 02/22/17 06/09/17 History [Miralax] Allergies Allergy/AdvReac Type Severity Reaction Status Date / Time No Known Allergies Allergy Verified 02/12/17 13:44 ROS unobtainable: due to delirium Medical,Surgical,& Family Hx - Medical History Cardio: History of: Aneurysm, CAD, WI (x 2) Psychological: No history of: Anxiety Disorders, ADHD, Behavior Problems, Bipolar Disorder, Depression, Previous Suicide Attempt, Psychiatric/Substance Abuse Tx, Schizophrenia, Violent Behavior, Psychiatric Problems Neurology: History of: Cerebrovascular Accident (with resulting left hemiparesis , CVA 2) No history of: Seizures Endocrine: History of: Dyslipidemia Genitourinary: History of: Prostate Problems (BPH) Gastrointestinal: History of: Hemorrhoids - Surgical History Cardiac Surgeries: Sugical HX of: Cardiac Surgery (bypass in the ) - Family History Family History: Reports;: Family Heart Disease, Family Hypertension - Social History Smoking Status: Never smoker Frequency of Alcohol Use: None Type of Drug Use: None Exam - Constitutional Vitals: Period Temp Pulse Resp BP Sys/Farr Pulse Ox Last 24 Hr 97.4 F-98.9 F 105-121 13-20 99-154/56-95 94-98 Exam: GENERAL: Patient is in no acute distress. NECK: Neck is supple. There is no JVD. No carotid bruits present. No thyroid masses. CVS: First and second heart sounds are normal. There is no S3 present. Regular rate and rhythm. RESPIRATORY: Lungs are clear to auscultation without any rales or rhonchi. ABDOMEN: Soft and non-tender. Bowel sounds are present. There is no hepatosplenomegaly. EXT: There is no palpable edema. Peripheral pulses are present. Skin: No rashes Central Nervous system: General: Confused and very disoriented Speech: Fluent but not making any Comprehension: Impaired Facial expressions: Normal Cranial Nerves: Pupils are equally reactive to light. Doll's head eye movements are positive. No facial asymmetry is seen. Motor: Hypertonia in the left side Strength cannot be assessed Sensory: Cannot be assessed Reflexes: 1+ and symmetrical Cerebellar function: Cannot be assessed Toes: Equivocal Gait: Cannot be assessed Results - Labs CBC & BMP: 06/10/17 05:12 06/10/17 05:12 Assessment and Plan (1) Delirium Status: Acute Assessment and plan: Etiology is not clear. This is multifactorial. Could very well be a decompensation of schedule for Change Geodon to 20 mg IM every 12 as needed Add Seroquel 25 mg at bed time Add Rocephin thousand milligrams IV every 24 hours We will follow-up on MRI Current Visit: Yes
[2017-06-10] MEDS: ZIPRASIDONE 20 MG/1 ML VIAL IM PRN ×2 (11:04→23:14)
--- NOTE | 2017-06-10 13:01 | Magnetic Resonance Report ---
History: Confusion. Hallucinations. Abnormal CT scan Date: 06/10/2017 Study: MRI brain without IV contrast Comparison exam: CT head 06/09/2017 The brain was imaged in 3 planes on the 1.5 Maddie magnet without IV contrast, to include diffusion, T2, FLAIR, gradient echo, and T1-weighted sequences. The ventricles are midline in position without evidence of hydrocephalus. There is no Chiari I malformation. There is no gross pituitary mass. Cavum septum pellucidum and cavum vergae are present. There is no evidence of recent ischemia on the diffusion sequence. There is no mass effect or parenchymal hemorrhage. There is a mild to moderate amount of patchy increased FLAIR and T2 signal in the periventricular white matter without mass effect compatible with changes of small vessel disease. There is no extra-axial hematoma. There is a normal flow void in the superior sagittal sinus. Changes of small vessel disease are noted in the lenticular nuclei. There is no obvious cerebellopontine angle mass. There is no definite flow abnormality in the [place] area. Impression: Chronic periventricular small vessel disease. No evidence of recent ischemia or acute intracranial process otherwise PROCEDURE INTERPRETED AT [facility] DEPARTMENT OF RADIOLOGY Final Report Signed by: Dr. Magad Ceja
[2017-06-10 17:28] LABS: Risk Ratio 3.4
[2017-06-10] MEDS: QUEtiapine 25 MG TABLET PO SCH (21:25)
[2017-06-11 05:55] LABS: Basophils % 0.4 % (0.0-0.8); Eosinophils # 0.1 10*3/uL (0.0-0.87); Eosinophils % 1.6 % (0.00-10.9); Hematocrit 41.7 VOL% (42.0-52.0); Hemoglobin 13.3 GM/DL (14.0-18.0); Immature Granulocytes % 0.1 %; Immature Granulocytes Absolute 0.01 #; Lymphocytes # 2.5 10*3/uL (1.4-4.0); Lymphocytes % 32.5 % (21.2-54.2); Mean Corpuscular HGB Conc 31.9 GM/DL (32-36); Mean Corpuscular Hemoglobin 25 PG (27-34); Mean Corpuscular Volume 76.9 FL (87-102); Mean Platelet Volume 9.4 FL (9.6-12.0); Monocytes # 0.7 10*3/uL (0.11-0.8); Monocytes % 9.2 % (1.7-12.7); Neutrophils # 4.3 10*3/uL (1.4-7.4); Neutrophils % 56.2 % (38.7-73.9); Platelet Count 269 T/CUMM (130-400); Red Blood Count 5.42 MC/CUMM (3.8-5.5); Red Cell Distribution Width 15.6 % (9.3-17.3); White Blood Count 7.7 T/CUMM (4-12)
[2017-06-11 06:33] LABS: Calcium 8.6 MG/DL (8.5-10.1); Osmolality,Calculated 275.5 MOS/KG (273-304); Potassium 3.1 MMOL/L (3.5-5.1)
[2017-06-11] MEDS: POTASSIUM CHLORIDE 20 MEQ TABLET PO SCH (08:35)
[2017-06-11] MEDS: DULoxetine 30 MG CAPSULE PO SCH (08:35)
[2017-06-11] MEDS: ASPIRIN EC 81 MG TABLET PO SCH (08:36)
[2017-06-11] MEDS: LOVASTATIN 20 MG TABLET PO SCH ×2 (08:36→21:48)
[2017-06-11] MEDS: PANTOPRAZOLE 40 MG TABLET PO SCH (08:36)
[2017-06-11] MEDS: QUEtiapine 25 MG TABLET PO SCH ×2 (08:36→21:46)
[2017-06-11] MEDS: TAMSULOSIN 0.4 MG CAPSULE PO SCH (08:36)
--- NOTE | 2017-06-11 10:36 | Hospitalist Progress Note ---
<Darling Granadosda - Last Filed: 06/11/17 10:33> Assessment and Plan (1) Altered mental status Status: Acute Assessment and plan: The patient remains altered. The family present at bedside reports that this is an acute change in the patient's status. A full neurological workup was performed which was essentially unremarkable. We agree with neurologist findings supporting decompensation of schizophrenia. Spoke with the family in great detail regarding the patient's prognosis and discharge planning. Case management has been consulted to assist in fdc facility placement. Current Visit: Yes Qualifiers: Altered mental status type: unspecified Qualified Code(s): R41.82 - Altered mental status, unspecified (2) Delirium Status: Acute Current Visit: Yes (3) Hypertension Status: Acute Current Visit: Yes (4) Schizo affective schizophrenia Status: Acute Assessment and plan: The patient remains altered. The family present at bedside reports that this is an acute change in the patient's status. A full neurological workup was performed which was essentially unremarkable. We agree with neurologist findings supporting decompensation of schizophrenia. Spoke with the family in great detail regarding the patient's prognosis and discharge planning. Case management has been consulted to assist in fdc facility placement. Current Visit: Yes Hospitalist: Subjective Interval history: Patient seen and examined; chart reviewed. No significant overnight events reported per staff. Right upper extremity remains restrained and sitter remains at bedside. The patient is alert however, grossly confused. Exam - Constitutional Vitals: Period Temp Pulse Resp BP Sys/Farr Pulse Ox Last 24 Hr 97.7 F-99 F 63-125 16-20 129-141/69-88 91-94 General appearance: normal weight, no acute distress - Head Head exam: Present: normal inspection, normocephalic, atraumatic - Eye Eye exam: Present: EOMI. Absent: conjunctival injection Pupils: Present: KAUSHIK, normal accommodation - ENT ENT exam: Present: normal exam, normal external ear exam, normal oropharynx - Neck Neck exam: Present: normal inspection. Absent: lymphadenopathy, meningismus, tenderness, thyromegaly - Respiratory Respiratory exam: Present: clear to auscultation bilaterally. Absent: rales, rhonchi, stridor, wheezes - Cardiovascular Cardiovascular exam: Present: regular rate and rhythm. Absent: carotid bruit, diastolic murmur, gallop, JVD, rubs, systolic murmur - GI/Abdominal GI/Abdominal exam: Present: normal bowel sounds, soft - Extremities Exam Extremities exam: Present: normal capillary refill, other. Absent: full ROM ( Contractions noted to left upper extremity) - Back Exam Back exam: Present: normal inspection - Neurological Exam Neurological exam: Present: alert, altered - Psychiatric Psychiatric exam: Present: agitated, anxious - Skin Skin exam: Present: normal color, warm, dry Results - Labs CBC & BMP: 06/11/17 04:45 06/11/17 04:45 Lab Results: I have reviewed the past 24 hour labs <Josué Mckee - Last Filed: 06/11/17 13:03> Assessment and Plan (1) Schizo affective schizophrenia Status: Acute Current Visit: Yes (2) Altered mental status Status: Acute Current Visit: Yes Qualifiers: Altered mental status type: unspecified Qualified Code(s): R41.82 - Altered mental status, unspecified (3) History of CVA (cerebrovascular accident) Status: Chronic Current Visit: Yes Hospitalist: Subjective Interval history: I have seen and examined the patient and reviewed all available laboratory and radiographic test results. I agree with the assessment and plans of Shelly MAYFIELD. Mr. Herrmann is presently being evaluated by Dr. Pineda of neurology. Further plans are pending his recommendations. Exam - Constitutional Vitals: Period Temp Pulse Resp BP Sys/Farr Pulse Ox Last 24 Hr 97.7 F-99 F 110-125 18-20 129-141/69-83 91-94 Results - Labs CBC & BMP: 06/11/17 04:45 06/11/17 04:45
[2017-06-11] MEDS: LORazepam 2 MG/1 ML VIAL IV PRN (12:26)
[2017-06-11] MEDS: ZINC OXIDE PASTE 113 GM TUBE TOP SCH ×2 (12:41→21:54)
[2017-06-11] MEDS: ZIPRASIDONE 20 MG/1 ML VIAL IM PRN (13:18)
--- NOTE | 2017-06-11 14:57 | Neurology Progress Note ---
Neurology - PN : Subjective Interval history: Patient seems to be doing okay. Somewhat sedated on antipsychotics. No new problems reported. [facility] has been consulted Exam (Progress Note) - Constitutional Vitals: Period Temp Pulse Resp BP Sys/Farr Pulse Ox Last 24 Hr 97.7 F-99 F 100-125 18-20 117-141/69-83 91-95 Exam: GENERAL: Patient is in no acute distress. NECK: Neck is supple. There is no JVD. No carotid bruits present. No thyroid masses. CVS: First and second heart sounds are normal. There is no S3 present. Regular rate and rhythm. RESPIRATORY: Lungs are clear to auscultation without any rales or rhonchi. ABDOMEN: Soft and non-tender. Bowel sounds are present. There is no hepatosplenomegaly. EXT: There is no palpable edema. Peripheral pulses are present. Skin: No rashes Central Nervous system: General: Sedated and asleep Speech: Not talking right at this moment Comprehension: Impaired Facial expressions: Normal Cranial Nerves: Pupils are equally reactive to light. Doll's head eye movements are positive. No facial asymmetry is seen. Motor: Hypertonia in the left side Strength cannot be assessed Sensory: Cannot be assessed Reflexes: 1+ and symmetrical Cerebellar function: Cannot be assessed Toes: Equivocal Gait: Cannot be assessed Results - Labs CBC & BMP: 06/11/17 04:45 06/11/17 04:45 Assessment and Plan (1) Delirium Status: Acute Assessment and plan: Etiology is not clear. This is multifactorial. Could very well be a decompensation of schizophrenia Continue Geodon. Continue Seroquel Okay to go to [facility] Current Visit: Yes
[2017-06-11] MEDS: SODIUM CHLORIDE 0.9% 1,000 ML IV SCH (16:10)
[2017-06-11] MEDS: POTASSIUM CHLORIDE 20 MEQ TABLET PO PRN (22:01)
[2017-06-12] MEDS: POTASSIUM CHLORIDE 20 MEQ TABLET PO PRN ×3 (00:29→05:44)
[2017-06-12] MEDS: SODIUM CHLORIDE 0.9% 1,000 ML IV SCH ×2 (05:36→05:41)
[2017-06-12 07:27] LABS: Albumin 3.1 G/DL (3.4-5.0); Bilirubin,Total 0.4 MG/DL (0.2-1.0); Calcium 8.1 MG/DL (8.5-10.1); Magnesium 2.4 MG/DL (1.8-2.4); Osmolality,Calculated 281.1 MOS/KG (273-304); Phosphorous 3.2 MG/DL (2.5-4.9); Potassium 4.6 MMOL/L (3.5-5.1); Total Protein 6.6 G/DL (6.4-8.3)
[2017-06-12 07:32] LABS: Calcium 7.9 MG/DL (8.5-10.1); Osmolality,Calculated 282.1 MOS/KG (273-304); Potassium 4.6 MMOL/L (3.5-5.1)
[2017-06-12 08:10] LABS: Basophils % 0.4 % (0.0-0.8); Eosinophils # 0.2 10*3/uL (0.0-0.87); Eosinophils % 1.7 % (0.00-10.9); Hematocrit 39.3 VOL% (42.0-52.0); Hemoglobin 12.4 GM/DL (14.0-18.0); Immature Granulocytes % 0.3 %; Immature Granulocytes Absolute 0.03 #; Lymphocytes # 2.4 10*3/uL (1.4-4.0); Mean Corpuscular HGB Conc 31.6 GM/DL (32-36); Mean Corpuscular Hemoglobin 25 PG (27-34); Mean Corpuscular Volume 78.1 FL (87-102); Mean Platelet Volume 9.5 FL (9.6-12.0); Monocytes # 0.7 10*3/uL (0.11-0.8); Monocytes % 6.7 % (1.7-12.7); Neutrophils # 7.2 10*3/uL (1.4-7.4); Neutrophils % 67.9 % (38.7-73.9); Platelet Count 248 T/CUMM (130-400); Red Blood Count 5.03 MC/CUMM (3.8-5.5); Red Cell Distribution Width 15.7 % (9.3-17.3); White Blood Count 10.6 T/CUMM (4-12)
[2017-06-12] MEDS: DULoxetine 30 MG CAPSULE PO SCH (08:12)
[2017-06-12] MEDS: LOVASTATIN 20 MG TABLET PO SCH (08:12)
[2017-06-12] MEDS: POTASSIUM CHLORIDE 20 MEQ TABLET PO SCH (08:13)
[2017-06-12] MEDS: QUEtiapine 25 MG TABLET PO SCH (08:13)
[2017-06-12] MEDS: ASPIRIN EC 81 MG TABLET PO SCH (08:13)
[2017-06-12] MEDS: PANTOPRAZOLE 40 MG TABLET PO SCH (08:13)
[2017-06-12] MEDS: ZINC OXIDE PASTE 113 GM TUBE TOP SCH (08:14)
[2017-06-12] MEDS: TAMSULOSIN 0.4 MG CAPSULE PO SCH (08:14)
--- NOTE | 2017-06-12 09:34 | Discharge Summary ---
<Darling Granadosda - Last Filed: 06/12/17 09:30> Hospital Course - Hospital Course Hospital Course: This is a chronically ill 66-year-old male that presented to the ED at [facility] via EMS on the night of June 09, 2017 for the evaluation of altered mental status. The patient has medical history significant for hypertension, cerebrovascular accident, myocardial infarction, dyslipidemia, gastrointestinal bleed, hemorrhoids, anxiety, benign prostatic hypertrophy, and schizoaffective disorder. Patient has a surgical history significant for coronary artery bypass graft. At the time of ED presentation, the patient was noted to be grossly altered. The patient was brought in by his family member reported that the patient had experienced an acute change in his mental status in recent days. They reported that the patient initially started with some mild confusion that progressively worsen to include auditory visual hallucinations. In addition, they reported a recent hospitalization [facility] for complaints similar in nature. They became concerned prompting the family to request emergency assistance. The patient was subsequently transported to [facility] for further evaluation. Patient was assessed at the time of ED presentation. The patient was noted to be altered at the time of presentation. The stroke protocol was initiated. The patient was noted to be tachycardic with a heart rate noted at 119. Labs were obtained which were significant for hemoglobin 13.9, sodium 134, potassium 3.1, chloride 96, calculated osmolality 267.2, ALT 13, troponin 0 0.025, total protein 8.5. Urinalysis significant for urine urobilinogen greater than 2.0, urine WBC less than 1, and the presence of urine mucus was occasional. Urine toxicology was positive for benzodiazepines. Chest x-ray was negative for the presence of any acute cardiopulmonary processes. CT head significant for the presence of subacute or old area of lacunar ischemia in the left smiley radiata , no parenchymal hemorrhage, and no definite acute cortical stroke or acute changes were noted otherwise. The stroke The patient was subsequently admitted to the hospitalist service for continuation of care. Due to the severity of the patient's presenting symptoms , the patient was placed in the critical care setting. A neurology consultation was requested to evaluate and assist during the clinical encounter. On June 10, 2017, the patient underwent MRI without contrast which was significant for chronic periventricular small vessel disease however, no evidence of recent ischemia or acute intracranial process was noted otherwise. Carotid Doppler studies obtained on June 09, 2017 was significant for 0-49% diameter reduction narrowing in either internal carotid artery using in direct NASCET criteria. On June 10, 2017, the patient was evaluated by neurology and recommendations were given. The patient's medication regimen was adjusted and empiric antibiotic coverage was initiated. The patient's condition gradually improved. The patient's condition is stable. He has not experienced any significant overnight events. Today, we feel that [facility] - Time spent with patient Time with patient DS: Greater than 30 minutes Diagnosis - Discharge Diagnosis (1) Altered mental status Status: Chronic (2) Delirium Status: Resolved (3) Hypertension Status: Chronic (4) Schizo affective schizophrenia Status: Chronic Discharge Plan - Discharge Data Disposition: Disch/Xfer to Psych Hos Condition at Discharge: Stable Discharge Diet: advance to your usual diet Activity: resume usual activities as tolerated Hygiene: no restrictions Weight Bearing at Discharge: full weight bearing Driving: no restrictions Contact your physician if you experience:: fever over 101, Nausea/Vomiting, Shortness of breath - Discharge Medications New Aspirin EC Tab 81 mg PO DAILY tablet DULoxetine [Cymbalta] 90 mg PO DAILY capsule Zinc Oxide Paste [Desitin Paste] 1 applic TOP BID applic ALPRAZolam [Xanax] 1 mg PO Q8H PRN tablet PRN Reason: Anxiety Acetaminophen Tab [Tylenol Tab] 650 mg PO Q4H PRN tablet PRN Reason: Fever, Headache, Mild Pain Continue Tamsulosin [Flomax] 0.4 mg PO DAILY Lovastatin 40 mg PO BID Baclofen Tab [Lioresal] 20 mg PO TID Aspirin EC Tab 81 mg PO DAILY Duloxetine HCl [Duloxetine] 90 mg PO DAILY Polyethylene Glycol Powder [Miralax] 17 gm PO BEDTIME PRN PRN Reason: Constipation ALPRAZolam [Xanax] 1 mg PO Q8H PRN #90 PRN Reason: Anxiety - Follow Up or Referral - Forms/Instructions Exam - Constitutional Vitals: Period Temp Pulse Resp BP Sys/Farr Pulse Ox Last 24 Hr 97.1 F-98.3 F 89-120 18-20 84-150/46-85 90-94 General appearance: normal weight, no acute distress - Head Head exam: Present: normal inspection, normocephalic, atraumatic - Eye Eye exam: Present: EOMI. Absent: conjunctival injection Pupils: Present: KAUSHIK, normal accommodation - ENT ENT exam: Present: normal exam, normal external ear exam, normal oropharynx - Neck Neck exam: Present: normal inspection. Absent: lymphadenopathy, meningismus, tenderness, thyromegaly - Respiratory Respiratory exam: Present: clear to auscultation bilaterally. Absent: rales, rhonchi, stridor, wheezes - Cardiovascular Cardiovascular exam: Present: regular rate and rhythm. Absent: carotid bruit, diastolic murmur, gallop, JVD, rubs, systolic murmur - GI/Abdominal GI/Abdominal exam: Present: normal bowel sounds, soft - Extremities Exam Extremities exam: Present: normal capillary refill. Absent: full ROM (Left upper extremity contractures) - Back Exam Back exam: Present: normal inspection - Neurological Exam Neurological exam: Present: alert, altered - Psychiatric Psychiatric exam: Present: anxious - Skin Skin exam: Present: normal color, warm, dry Discharge Results Procedures and tests throughout hospitalization: Pending Orders 06/09/17 14:42 Blood Culture Stat 06/12/17 12:00 Potassium Routine Labs on day of discharge: Labs from last 24 hours 06/12/17 06/12/17 06/12/17 07:39 04:40 04:40 WBC 10.6 D RBC 5.03 Hgb 12.4 L Hct 39.3 L MCV 78.1 L MCH 25 L MCHC 31.6 L RDW 15.7 Plt Count 248 MPV 9.5 L Neut % (Auto) 67.9 Lymph % (Auto) 23.0 [place] % (Auto) 6.7 Eos % (Auto) 1.7 Baso % (Auto) 0.4 Neut # (Auto) 7.2 Lymph # (Auto) 2.4 [place] # (Auto) 0.7 Eos # (Auto) 0.2 Baso # (Auto) 0.0 Immature Gran % 0.3 Nucleated RBC % 0.0 Immature Gran # 0.03 Nucleated RBCs # 0.00 Immature Plt Fraction 0.0 Sodium 142 142 Potassium 4.6 4.6 Chloride 109 H 107 Carbon Dioxide 23 25 Anion Gap 14.6 14.6 BUN 17 17 Creatinine 0.70 0.70 GFR Calculation 96 96 BUN/Creatinine Ratio 24.00 H 24.00 H Glucose 49 L 56 L Calculated Osmolality 281.1 282.1 Calcium 8.1 L 7.9 L Phosphorus 3.2 Magnesium 2.4 Total Bilirubin 0.40 AST 34 ALT 11 L Alkaline Phosphatase 74 Total Protein 6.6 Albumin 3.1 L Globulin 3.5 Albumin/Globulin Ratio 0.8 L Preliminary micro results at discharge 06/09/17 14:42 Blood Culture - Preliminary Blood No growth at 1 day 06/09/17 14:42 Blood Culture - Preliminary Blood No growth at 1 day DS: Provider Date of admission: 06/09/17 17:00 Primary care physician: . Keturah PCP Attending physician on admission: Josué Mckee Consults: 06/09/17 17:31 Consult to Occupational Therapy [CONS] Routine Reason for Occupational Therapy: Evaluate and Treat Consult to Physical Therapy [CONS] Routine Reason for Physical Therapy: Evaluate and Treat Consult to Physician [CONS] Routine Comment: Consulting Provider: Consult to Specialist Group: Neurology Consult to Speech Therapy [CONS] Routine Reason for Speech Therapy: Evaluate and Treat Bedside Swallow Eval 06/09/17 17:46 Consult to Physician [CONS] Routine Comment: Consulting Provider: Nelson Pineda 06/09/17 19:07 Consult to Dietitian [CONS] Routine Reason for Dietitian: Other Consult Comment: admission assessment 06/11/17 10:40 Consult to Case Mgmt/Social Srvs [CONS] Routine Reason for Case Mgmt/Social Srvs: Rehab Other Discharging clinician: Regan Granados CNP <Pao Gross - Last Filed: 06/12/17 10:31> Hospital Course - Time spent with patient Time with patient DS: Greater than 30 minutes (45) Diagnosis - Discharge Diagnosis (1) Altered mental status Status: Chronic (2) History of CVA (cerebrovascular accident) Status: Chronic (3) Hypertension Status: Chronic (4) Schizo affective schizophrenia Status: Chronic
[2017-06-12] MEDS ORDERED: FUROSEMIDE 40 MG/4 ML VIAL IV ONE (09:47)
[2017-06-12 11:07] VITALS: BP 131/53
== END 2017-06-12 11:50 | DRG 948 ==
LOC: EDBD → EDUNIT# → N.ED 13:44 → N.EDINP 17:00 → SUATTDRO 17:00 → N.EDINP 18:23 → N.4E 18:49
PROVIDERS: ATTEND Internal Medicine

== ENCOUNTER 2017-07-15 18:47 | Inpatient (IN) ==
[2017-07-15] MEDS ORDERED: SODIUM CHLORIDE 0.9% 1,000 ML IV STA (19:34)
[2017-07-15 19:39] LABS: Basophils % 0.2 % (0.0-0.8); Hemoglobin 15.4 GM/DL (14.0-18.0); Immature Granulocytes % 0.5 %; Immature Granulocytes Absolute 0.05 #; Lymphocytes # 2.2 10*3/uL (1.4-4.0); Mean Corpuscular HGB Conc 32.1 GM/DL (32-36); Mean Corpuscular Hemoglobin 24 PG (27-34); Mean Corpuscular Volume 75.7 FL (87-102); Mean Platelet Volume 8.6 FL (9.6-12.0); Monocytes # 0.8 10*3/uL (0.11-0.8); Monocytes % 8.1 % (1.7-12.7); Neutrophils # 7.2 10*3/uL (1.4-7.4); Neutrophils % 70.2 % (38.7-73.9); Platelet Count 268 T/CUMM (130-400); Red Blood Count 6.34 MC/CUMM (3.8-5.5); Red Cell Distribution Width 18.6 % (9.3-17.3); White Blood Count 10.2 T/CUMM (4-12)
[2017-07-15 20:10] LABS: Albumin 3.6 G/DL (3.4-5.0); Bilirubin,Total 0.4 MG/DL (0.2-1.0); Calcium 8.4 MG/DL (8.5-10.1); Osmolality,Calculated 269.5 MOS/KG (273-304); Potassium 3.3 MMOL/L (3.5-5.1); Total Protein 7.9 G/DL (6.4-8.3)
[2017-07-15] MEDS ORDERED: ONDANSETRON 4 MG/2 ML VIAL IV PRN (21:20)
[2017-07-15] MEDS ORDERED: ZALEPLON 5 MG CAPSULE PO PRN (21:24)
[2017-07-15] MEDS ORDERED: POTASSIUM CHLORIDE 20 MEQ TABLET PO ONE (22:14)
[2017-07-15] MEDS ORDERED: INFLUENZA VIRUS VACCINE 0.5 ML SYRINGE IM ONE (22:53)
[2017-07-15] MEDS ORDERED: PNEUMOCOCCAL VACCINE (13 VALENT) 0.5 ML SYRINGE IM ONE (22:54)
[2017-07-15] MEDS: SODIUM CHLORIDE 0.9% 1,000 ML IV SCH (22:58)
[2017-07-15] MEDS: ENOXAPARIN 40 MG/0.4 ML SYRINGE SUBCUT SCH (22:59)
[2017-07-16 05:35] LABS: Basophils % 0.2 % (0.0-0.8); Eosinophils % 0.1 % (0.00-10.9); Hematocrit 41.9 VOL% (42.0-52.0); Hemoglobin 13.1 GM/DL (14.0-18.0); Immature Granulocytes % 0.4 %; Immature Granulocytes Absolute 0.04 #; Lymphocytes # 2.7 10*3/uL (1.4-4.0); Lymphocytes % 30.2 % (21.2-54.2); Mean Corpuscular HGB Conc 31.3 GM/DL (32-36); Mean Corpuscular Hemoglobin 25 PG (27-34); Mean Corpuscular Volume 78.8 FL (87-102); Mean Platelet Volume 9.5 FL (9.6-12.0); Monocytes # 0.8 10*3/uL (0.11-0.8); Monocytes % 8.8 % (1.7-12.7); Neutrophils # 5.4 10*3/uL (1.4-7.4); Neutrophils % 60.3 % (38.7-73.9); Platelet Count 210 T/CUMM (130-400); Red Blood Count 5.32 MC/CUMM (3.8-5.5); Red Cell Distribution Width 18.4 % (9.3-17.3)
[2017-07-16 05:42] LABS: Calcium 7.4 MG/DL (8.5-10.1); Osmolality,Calculated 271.1 MOS/KG (273-304)
[2017-07-16] MEDS: ACETAMINOPHEN 325 MG TABLET PO PRN (09:41)
[2017-07-16] MEDS: ASPIRIN EC 81 MG TABLET PO SCH (09:44)
[2017-07-16] MEDS: BACLOFEN 20 MG TABLET PO SCH ×3 (09:44→20:32)
[2017-07-16] MEDS: LOVASTATIN 20 MG TABLET PO SCH ×2 (09:44→18:35)
[2017-07-16] MEDS: TAMSULOSIN 0.4 MG CAPSULE PO SCH ×2 (09:44→16:52)
[2017-07-16] MEDS: DULoxetine 30 MG CAPSULE PO SCH (09:45)
[2017-07-16] MEDS: SODIUM CHLORIDE 0.9% 1,000 ML IV SCH ×2 (09:46→18:41)
[2017-07-16] MEDS: buPROPion SR 100 MG TABLET PO SCH (16:56)
[2017-07-16] MEDS: ENOXAPARIN 40 MG/0.4 ML SYRINGE SUBCUT SCH (20:32)
[2017-07-17] MEDS: SODIUM CHLORIDE 0.9% 1,000 ML IV SCH ×3 (03:32→23:15)
[2017-07-17] MEDS: BACLOFEN 20 MG TABLET PO SCH ×3 (09:15→20:34)
[2017-07-17] MEDS: buPROPion SR 100 MG TABLET PO SCH (09:15)
[2017-07-17] MEDS: DULoxetine 30 MG CAPSULE PO SCH (09:16)
[2017-07-17] MEDS: LOVASTATIN 20 MG TABLET PO SCH ×2 (09:16→17:32)
[2017-07-17] MEDS: TAMSULOSIN 0.4 MG CAPSULE PO SCH (09:17)
[2017-07-17] MEDS: ASPIRIN EC 81 MG TABLET PO SCH (09:17)
[2017-07-17] MEDS: ENOXAPARIN 40 MG/0.4 ML SYRINGE SUBCUT SCH (20:34)
[2017-07-18] MEDS: DULoxetine 30 MG CAPSULE PO SCH (10:09)
[2017-07-18] MEDS: LOVASTATIN 20 MG TABLET PO SCH ×2 (10:09→16:18)
[2017-07-18] MEDS: ASPIRIN EC 81 MG TABLET PO SCH (10:09)
[2017-07-18] MEDS: TAMSULOSIN 0.4 MG CAPSULE PO SCH (10:10)
[2017-07-18] MEDS: BACLOFEN 20 MG TABLET PO SCH ×3 (10:10→20:37)
[2017-07-18] MEDS: buPROPion SR 100 MG TABLET PO SCH ×2 (10:10→11:33)
[2017-07-18] MEDS: SODIUM CHLORIDE 0.9% 1,000 ML IV SCH ×2 (12:58→22:55)
[2017-07-18] MEDS: ENOXAPARIN 40 MG/0.4 ML SYRINGE SUBCUT SCH (20:36)
[2017-07-19 04:33] LABS: Basophils % 0.3 % (0.0-0.8); Eosinophils % 1.1 % (0.00-10.9); Hematocrit 35.8 VOL% (42.0-52.0); Hemoglobin 11.4 GM/DL (14.0-18.0); Immature Granulocytes % 0.6 %; Immature Granulocytes Absolute 0.02 #; Lymphocytes # 1.8 10*3/uL (1.4-4.0); Lymphocytes % 48.9 % (21.2-54.2); Mean Corpuscular HGB Conc 31.8 GM/DL (32-36); Mean Corpuscular Hemoglobin 25 PG (27-34); Mean Platelet Volume 9.2 FL (9.6-12.0); Monocytes # 0.3 10*3/uL (0.11-0.8); Monocytes % 8.1 % (1.7-12.7); Neutrophils # 1.5 10*3/uL (1.4-7.4); Platelet Count 173 T/CUMM (130-400); Red Blood Count 4.65 MC/CUMM (3.8-5.5); Red Cell Distribution Width 17.4 % (9.3-17.3); White Blood Count 3.6 T/CUMM (4-12)
[2017-07-19 05:47] LABS: Calcium 7.5 MG/DL (8.5-10.1); Osmolality,Calculated 273.5 MOS/KG (273-304); Potassium 4.2 MMOL/L (3.5-5.1)
[2017-07-19] MEDS: LOVASTATIN 20 MG TABLET PO SCH ×2 (08:36→16:33)
[2017-07-19] MEDS: BACLOFEN 20 MG TABLET PO SCH ×3 (08:36→21:41)
[2017-07-19] MEDS: DULoxetine 30 MG CAPSULE PO SCH (08:36)
[2017-07-19] MEDS: ASPIRIN EC 81 MG TABLET PO SCH (08:37)
[2017-07-19] MEDS: TAMSULOSIN 0.4 MG CAPSULE PO SCH (08:37)
[2017-07-19] MEDS: SODIUM CHLORIDE 0.9% 1,000 ML IV SCH (11:31)
[2017-07-19] MEDS ORDERED: MAGNESIUM HYDROXIDE SUSP 30 ML UDCUP PO PRN (16:16)
[2017-07-19] MEDS: ACETAMINOPHEN 325 MG TABLET PO PRN (17:35)
[2017-07-19] MEDS: ENOXAPARIN 40 MG/0.4 ML SYRINGE SUBCUT SCH (21:41)
[2017-07-19] MEDS: POLYETHYLENE GLYCOL POWDER 17 GM PACK PO SCH (21:41)
[2017-07-20] MEDS: BACLOFEN 20 MG TABLET PO SCH (08:49)
[2017-07-20] MEDS: DULoxetine 30 MG CAPSULE PO SCH (08:49)
[2017-07-20] MEDS: ASPIRIN EC 81 MG TABLET PO SCH (08:49)
[2017-07-20] MEDS: LOVASTATIN 20 MG TABLET PO SCH (08:49)
[2017-07-20] MEDS: TAMSULOSIN 0.4 MG CAPSULE PO SCH (08:49)
[2017-07-20] MEDS: POLYETHYLENE GLYCOL POWDER 17 GM PACK PO SCH ×2 (08:49→08:53)
[2017-07-20 11:51] VITALS: BP 137/82
== END 2017-07-20 15:47 | disposition home or self-care (01) | DRG 392 ==
LOC: EDBD → EDUNIT# → N.EDINP 18:47 → N.ED 18:47 → N.5E 22:04 → N.TELEN 07-16 01:15
PROVIDERS: ADMIT Internal Medicine; ATTEND Internal Medicine

== ENCOUNTER 2018-03-06 15:53 | Inpatient (IN) ==
[2018-03-08 14:13] VITALS: BP 128/62
== END 2018-03-08 14:45 | disposition home health service (06) | DRG 312 ==
LOC: EDBD → EDUNIT# → N.ED 15:53 → N.EDINP 21:29 → N.TELES 23:05
PROVIDERS: ADMIT Internal Medicine; ATTEND Internal Medicine

== ENCOUNTER 2019-09-27 07:12 | Observation (INO) ==
[2019-09-27 08:53] LABS: ABG Base Excess 5.1 MMOL/L (-2.5-2.5); ABG HCO3 32.1 MMOL/L (20-26); ABG Oxygen Saturation 93.7 % (95-100); ABG PCO2 56.9 MM HG (35-48); ABG PH 7.369 (7.35-7.45); ABG PO2 70.5 MM HG (80-95); ABG TCO2 33.8 MMOL/L (23-27); Allen Test Positive
[2019-09-27 09:06] LABS: Basophils # 0.1 10*3/uL (0.0-0.2); Basophils % 0.6 % (0.0-0.8); Eosinophils # 0.3 10*3/uL (0.0-0.87); Eosinophils % 3.3 % (0.00-10.9); Hematocrit 47.1 VOL% (42.0-52.0); Hemoglobin 14.6 GM/DL (14.0-18.0); Immature Granulocytes % 0.5 %; Immature Granulocytes Absolute 0.04 #; Lymphocytes # 2.5 10*3/uL (1.4-4.0); Lymphocytes % 30.8 % (21.2-54.2); Mean Corpuscular Volume 91.6 FL (87-102); Mean Platelet Volume 8.6 FL (9.6-12.0); Monocytes % 8.7 % (1.7-12.7); Neutrophils % 56.1 % (38.7-73.9); Platelet Count 221 T/CUMM (130-400); Red Blood Count 5.14 MC/CUMM (3.8-5.5); Red Cell Distribution Width 14.9 % (9.3-17.3); White Blood Count 8.2 T/CUMM (4-12)
[2019-09-27 09:16] LABS: Apearance,Urine CLEAR (Clear); Bilirubin,Urine Negative (Negative); Blood, Urine Negative (Negative); Glucose,Urine (UA) Negative (Negative); Ketones,Urine Negative (Negative); Mucus,Urine Occasional /LPF (Occasional); Nitrite,Urine Negative (Negative); Protein,Urine Negative; RBC,Urine 3 /HPF (0-4); Squamous Epithelial Cell,Urine Occasional /HPF (0-10); Urine Color Yellow (Yellow); Urine Specific Gravity 1.024 (1.001-1.035); Urine Urobilinogen < 2.0 EU/DL (0.2-1.0); WBC,Urine 1 /HPF (0-6)
[2019-09-27 09:20] LABS: Barbiturates Screen,Urine Negative (Negative); Benzodiazepines Screen,Urine Positive (Negative); Cannabinoid Screen,Urine Negative (Negative); Opiate Screen,Urine Negative (Negative); Phencyclidine Screen,Urine Negative (Negative)
[2019-09-27 09:27] LABS: PT Patient Result 10.4 SECS (9.6-12.2)
[2019-09-27 09:34] LABS: Acetaminophen < 2.0 UG/ML (10-30); Salicylate < 2.8 MG/DL (2.8-20)
[2019-09-27 09:39] LABS: Alanine Aminotransferase 30 U/L (16-61); Albumin 3.2 G/DL (3.4-5.0); Alkaline Phosphatase 80 U/L (45-117); Aspartate Amino Transferase 21 U/L (0-37); Bilirubin,Total < 0.39 MG/DL (0.2-1.0); Blood Urea Nitrogen 23 MG/DL (7-18); Calcium 8.5 MG/DL (8.5-10.1); Estimated Glom Filtration Rate 84 ML/MIN; Glucose 101 MG/DL (74-106); Osmolality,Calculated 276.8 MOS/KG (273-304); Total Protein 7.1 G/DL (6.4-8.3)
[2019-09-27] MEDS ORDERED: LACTULOSE 20 GM/30 ML UDCUP PO PRN (11:04)
[2019-09-27] MEDS ORDERED: ONDANSETRON 4 MG/2 ML VIAL IV PRN (11:04)
[2019-09-27] MEDS ORDERED: DOCUSATE SODIUM 100 MG CAPSULE PO PRN (11:04)
[2019-09-27] MEDS: TAMSULOSIN 0.4 MG CAPSULE PO SCH (12:20)
[2019-09-27] MEDS: ENOXAPARIN 40 MG/0.4 ML SYRINGE SUBCUT SCH (12:21)
[2019-09-27] MEDS: SODIUM CHLORIDE 0.45% 1,000 ML IV SCH (12:22)
[2019-09-27] MEDS: GABAPENTIN 400 MG CAPSULE PO SCH ×2 (16:25→20:23)
[2019-09-27] MEDS: ZINC OXIDE PASTE 113 GM TUBE TOP SCH (20:17)
[2019-09-27] MEDS: POLYETHYLENE GLYCOL POWDER 17 GM PACK PO SCH (20:17)
[2019-09-27] MEDS: diphenhydrAMINE CAP 25 MG CAPSULE PO PRN (20:23)
[2019-09-27] MEDS: BACLOFEN 20 MG TABLET PO SCH (20:24)
[2019-09-27] MEDS: ASPIRIN EC 81 MG TABLET PO SCH (20:24)
[2019-09-27] MEDS: ALPRAZolam 0.5 MG TABLET PO SCH (21:30)
[2019-09-28 04:55] LABS: Basophils % 0.5 % (0.0-0.8); Eosinophils # 0.3 10*3/uL (0.0-0.87); Eosinophils % 4.2 % (0.00-10.9); Hematocrit 41.6 VOL% (42.0-52.0); Hemoglobin 12.9 GM/DL (14.0-18.0); Immature Granulocytes % 0.4 %; Immature Granulocytes Absolute 0.03 #; Lymphocytes % 40.1 % (21.2-54.2); Mean Corpuscular Volume 90.4 FL (87-102); Mean Platelet Volume 8.9 FL (9.6-12.0); Monocytes % 9.9 % (1.7-12.7); Neutrophils % 44.9 % (38.7-73.9); Platelet Count 214 T/CUMM (130-400); White Blood Count 7.4 T/CUMM (4-12)
[2019-09-28 05:09] LABS: Calcium 7.8 MG/DL (8.5-10.1); Osmolality,Calculated 277.5 MOS/KG (273-304)
[2019-09-28] MEDS: SIMVASTATIN 40 MG TABLET PO SCH ×3 (05:23→17:00)
[2019-09-28] MEDS: SODIUM CHLORIDE 0.45% 1,000 ML IV SCH (08:30)
[2019-09-28] MEDS: TAMSULOSIN 0.4 MG CAPSULE PO SCH ×2 (09:25→20:48)
[2019-09-28] MEDS: DULoxetine 30 MG CAPSULE PO SCH (09:26)
[2019-09-28] MEDS: BACLOFEN 20 MG TABLET PO SCH ×2 (09:26→20:47)
[2019-09-28] MEDS: ZINC OXIDE PASTE 113 GM TUBE TOP SCH (09:30)
[2019-09-28] MEDS: ALPRAZolam 0.5 MG TABLET PO SCH ×2 (09:36→20:47)
[2019-09-28] MEDS: ENOXAPARIN 40 MG/0.4 ML SYRINGE SUBCUT SCH (13:01)
[2019-09-28] MEDS: GABAPENTIN 400 MG CAPSULE PO SCH (17:00)
[2019-09-28] MEDS: ASPIRIN EC 81 MG TABLET PO SCH (20:47)
[2019-09-28] MEDS: diphenhydrAMINE CAP 25 MG CAPSULE PO PRN (20:48)
[2019-09-28] MEDS: POLYETHYLENE GLYCOL POWDER 17 GM PACK PO SCH (20:50)
[2019-09-29] MEDS: ZINC OXIDE PASTE 113 GM TUBE TOP SCH ×3 (02:59→20:20)
[2019-09-29] MEDS: GABAPENTIN 400 MG CAPSULE PO SCH ×3 (03:00→20:20)
[2019-09-29] MEDS: SODIUM CHLORIDE 0.45% 1,000 ML IV SCH ×2 (04:30→23:24)
[2019-09-29 04:44] LABS: Basophils % 0.4 % (0.0-0.8); Eosinophils # 0.3 10*3/uL (0.0-0.87); Eosinophils % 3.5 % (0.00-10.9); Hematocrit 43.5 VOL% (42.0-52.0); Hemoglobin 13.5 GM/DL (14.0-18.0); Immature Granulocytes % 0.4 %; Immature Granulocytes Absolute 0.03 #; Lymphocytes # 2.9 10*3/uL (1.4-4.0); Lymphocytes % 38.5 % (21.2-54.2); Mean Corpuscular Volume 90.1 FL (87-102); Mean Platelet Volume 8.8 FL (9.6-12.0); Monocytes % 9.9 % (1.7-12.7); Neutrophils % 47.3 % (38.7-73.9); Platelet Count 199 T/CUMM (130-400); Red Blood Count 4.83 MC/CUMM (3.8-5.5); Red Cell Distribution Width 14.8 % (9.3-17.3); White Blood Count 7.4 T/CUMM (4-12)
[2019-09-29 05:27] LABS: Calcium 8.3 MG/DL (8.5-10.1); Osmolality,Calculated 279.4 MOS/KG (273-304)
[2019-09-29] MEDS: BACLOFEN 20 MG TABLET PO SCH ×2 (08:52→20:19)
[2019-09-29] MEDS: ALPRAZolam 0.5 MG TABLET PO SCH ×2 (08:52→20:20)
[2019-09-29] MEDS: DULoxetine 30 MG CAPSULE PO SCH (08:52)
[2019-09-29] MEDS: SIMVASTATIN 40 MG TABLET PO SCH (08:52)
[2019-09-29] MEDS: TAMSULOSIN 0.4 MG CAPSULE PO SCH ×2 (08:52→20:19)
[2019-09-29] MEDS: ENOXAPARIN 40 MG/0.4 ML SYRINGE SUBCUT SCH (12:12)
[2019-09-29] MEDS ORDERED: INFLUENZA VIRUS VACCINE 0.5 ML SYRINGE IM ONE (14:41)
[2019-09-29] MEDS: ACETAMINOPHEN 325 MG TABLET PO PRN (16:27)
[2019-09-29] MEDS: ASPIRIN EC 81 MG TABLET PO SCH (20:19)
[2019-09-29] MEDS: diphenhydrAMINE CAP 25 MG CAPSULE PO PRN (20:19)
[2019-09-29] MEDS: SIMVASTATIN 20 MG TABLET PO SCH (20:20)
[2019-09-29] MEDS: POLYETHYLENE GLYCOL POWDER 17 GM PACK PO SCH (20:20)
[2019-09-30 05:02] LABS: Basophils % 0.5 % (0.0-0.8); Eosinophils # 0.3 10*3/uL (0.0-0.87); Eosinophils % 3.4 % (0.00-10.9); Hematocrit 42.6 VOL% (42.0-52.0); Hemoglobin 13.5 GM/DL (14.0-18.0); Immature Granulocytes % 0.4 %; Immature Granulocytes Absolute 0.03 #; Lymphocytes # 2.9 10*3/uL (1.4-4.0); Lymphocytes % 40.1 % (21.2-54.2); Mean Corpuscular HGB Conc 31.7 GM/DL (32-36); Mean Corpuscular Volume 89.7 FL (87-102); Mean Platelet Volume 8.5 FL (9.6-12.0); Neutrophils % 46.6 % (38.7-73.9); Platelet Count 199 T/CUMM (130-400); Red Blood Count 4.75 MC/CUMM (3.8-5.5); Red Cell Distribution Width 14.7 % (9.3-17.3); White Blood Count 7.3 T/CUMM (4-12)
[2019-09-30 05:30] LABS: Calcium 8.2 MG/DL (8.5-10.1); Osmolality,Calculated 275.5 MOS/KG (273-304)
[2019-09-30] MEDS: BACLOFEN 20 MG TABLET PO SCH ×2 (08:30→20:35)
[2019-09-30] MEDS: ALPRAZolam 0.5 MG TABLET PO SCH ×2 (08:30→20:35)
[2019-09-30] MEDS: DULoxetine 30 MG CAPSULE PO SCH (08:30)
[2019-09-30] MEDS: ZINC OXIDE PASTE 113 GM TUBE TOP SCH ×2 (08:31→20:36)
[2019-09-30] MEDS: TAMSULOSIN 0.4 MG CAPSULE PO SCH ×2 (08:31→20:35)
[2019-09-30] MEDS: ENOXAPARIN 40 MG/0.4 ML SYRINGE SUBCUT SCH (11:16)
[2019-09-30] MEDS: GABAPENTIN 400 MG CAPSULE PO SCH ×2 (16:02→20:37)
[2019-09-30] MEDS: ASPIRIN EC 81 MG TABLET PO SCH (20:35)
[2019-09-30] MEDS: SIMVASTATIN 20 MG TABLET PO SCH (20:35)
[2019-09-30] MEDS: diphenhydrAMINE CAP 25 MG CAPSULE PO PRN (20:35)
[2019-09-30] MEDS: POLYETHYLENE GLYCOL POWDER 17 GM PACK PO SCH (20:36)
[2019-10-01 05:34] LABS: Basophils % 0.5 % (0.0-0.8); Eosinophils # 0.3 10*3/uL (0.0-0.87); Hematocrit 43.8 VOL% (42.0-52.0); Hemoglobin 13.7 GM/DL (14.0-18.0); Immature Granulocytes % 0.4 %; Immature Granulocytes Absolute 0.03 #; Lymphocytes # 2.7 10*3/uL (1.4-4.0); Lymphocytes % 32.8 % (21.2-54.2); Mean Corpuscular HGB Conc 31.3 GM/DL (32-36); Mean Corpuscular Volume 89.9 FL (87-102); Mean Platelet Volume 8.6 FL (9.6-12.0); Neutrophils % 55.3 % (38.7-73.9); Platelet Count 206 T/CUMM (130-400); Red Blood Count 4.87 MC/CUMM (3.8-5.5); Red Cell Distribution Width 14.9 % (9.3-17.3); White Blood Count 8.2 T/CUMM (4-12)
[2019-10-01 05:46] LABS: Calcium 8.5 MG/DL (8.5-10.1); Osmolality,Calculated 278.4 MOS/KG (273-304)
[2019-10-01] MEDS: TAMSULOSIN 0.4 MG CAPSULE PO SCH ×2 (08:55→20:55)
[2019-10-01] MEDS: ALPRAZolam 0.5 MG TABLET PO SCH ×2 (08:55→21:05)
[2019-10-01] MEDS: DULoxetine 30 MG CAPSULE PO SCH (08:55)
[2019-10-01] MEDS: BACLOFEN 20 MG TABLET PO SCH ×2 (08:55→20:54)
[2019-10-01] MEDS: ZINC OXIDE PASTE 113 GM TUBE TOP SCH ×2 (09:19→20:56)
[2019-10-01] MEDS: ACETAMINOPHEN 325 MG TABLET PO PRN (11:21)
[2019-10-01] MEDS: ENOXAPARIN 40 MG/0.4 ML SYRINGE SUBCUT SCH (11:21)
[2019-10-01] MEDS: GABAPENTIN 400 MG CAPSULE PO SCH ×2 (16:28→20:55)
[2019-10-01] MEDS: SODIUM CHLORIDE 0.45% 1,000 ML IV SCH ×2 (17:42→20:56)
[2019-10-01] MEDS: ASPIRIN EC 81 MG TABLET PO SCH (20:55)
[2019-10-01] MEDS: diphenhydrAMINE CAP 25 MG CAPSULE PO PRN (20:55)
[2019-10-01] MEDS: POLYETHYLENE GLYCOL POWDER 17 GM PACK PO SCH (20:56)
[2019-10-01] MEDS: SIMVASTATIN 20 MG TABLET PO SCH (21:05)
[2019-10-02 05:31] LABS: Basophils % 0.3 % (0.0-0.8); Eosinophils # 0.3 10*3/uL (0.0-0.87); Eosinophils % 2.8 % (0.00-10.9); Hematocrit 44.3 VOL% (42.0-52.0); Hemoglobin 13.8 GM/DL (14.0-18.0); Immature Granulocytes % 0.4 %; Immature Granulocytes Absolute 0.04 #; Lymphocytes # 2.8 10*3/uL (1.4-4.0); Lymphocytes % 29.8 % (21.2-54.2); Mean Corpuscular HGB Conc 31.2 GM/DL (32-36); Mean Corpuscular Volume 90.6 FL (87-102); Mean Platelet Volume 8.9 FL (9.6-12.0); Neutrophils % 57.7 % (38.7-73.9); Platelet Count 239 T/CUMM (130-400); Red Blood Count 4.89 MC/CUMM (3.8-5.5); White Blood Count 9.5 T/CUMM (4-12)
[2019-10-02 06:20] LABS: Calcium 9.5 MG/DL (8.5-10.1); Osmolality,Calculated 278.5 MOS/KG (273-304)
[2019-10-02] MEDS: ALPRAZolam 0.5 MG TABLET PO SCH ×2 (09:15→20:41)
[2019-10-02] MEDS: BACLOFEN 20 MG TABLET PO SCH ×2 (09:16→20:41)
[2019-10-02] MEDS: DULoxetine 30 MG CAPSULE PO SCH (09:16)
[2019-10-02] MEDS: TAMSULOSIN 0.4 MG CAPSULE PO SCH ×2 (09:16→20:40)
[2019-10-02] MEDS: ZINC OXIDE PASTE 113 GM TUBE TOP SCH ×2 (09:20→20:41)
[2019-10-02] MEDS: ENOXAPARIN 40 MG/0.4 ML SYRINGE SUBCUT SCH (11:21)
[2019-10-02] MEDS: SODIUM CHLORIDE 0.45% 1,000 ML IV SCH (11:41)
[2019-10-02] MEDS ORDERED: TUBERCULIN SKIN TEST 0.1 ML SYRINGE INTRADERM ONE (12:35)
[2019-10-02] MEDS: GABAPENTIN 400 MG CAPSULE PO SCH ×2 (16:55→20:40)
[2019-10-02] MEDS: SIMVASTATIN 20 MG TABLET PO SCH (20:40)
[2019-10-02] MEDS: diphenhydrAMINE CAP 25 MG CAPSULE PO PRN (20:41)
[2019-10-02] MEDS: POLYETHYLENE GLYCOL POWDER 17 GM PACK PO SCH (20:41)
[2019-10-02] MEDS: ASPIRIN EC 81 MG TABLET PO SCH (20:41)
[2019-10-03 05:43] LABS: Basophils % 0.4 % (0.0-0.8); Eosinophils # 0.3 10*3/uL (0.0-0.87); Eosinophils % 2.7 % (0.00-10.9); Hematocrit 45.2 VOL% (42.0-52.0); Hemoglobin 13.9 GM/DL (14.0-18.0); Immature Granulocytes % 0.5 %; Immature Granulocytes Absolute 0.05 #; Lymphocytes # 3.2 10*3/uL (1.4-4.0); Lymphocytes % 33.2 % (21.2-54.2); Mean Corpuscular HGB Conc 30.8 GM/DL (32-36); Mean Corpuscular Volume 91.3 FL (87-102); Monocytes % 9.2 % (1.7-12.7); Platelet Count 253 T/CUMM (130-400); Red Blood Count 4.95 MC/CUMM (3.8-5.5); Red Cell Distribution Width 15.3 % (9.3-17.3); White Blood Count 9.5 T/CUMM (4-12)
[2019-10-03 06:01] LABS: Calcium 8.8 MG/DL (8.5-10.1); Osmolality,Calculated 282.4 MOS/KG (273-304)
[2019-10-03] MEDS: TAMSULOSIN 0.4 MG CAPSULE PO SCH ×2 (08:27→20:54)
[2019-10-03] MEDS: ALPRAZolam 0.5 MG TABLET PO SCH (08:27)
[2019-10-03] MEDS: DULoxetine 30 MG CAPSULE PO SCH (08:27)
[2019-10-03] MEDS: ZINC OXIDE PASTE 113 GM TUBE TOP SCH ×2 (08:28→20:54)
[2019-10-03] MEDS: BACLOFEN 20 MG TABLET PO SCH ×2 (08:28→20:53)
[2019-10-03] MEDS: ENOXAPARIN 40 MG/0.4 ML SYRINGE SUBCUT SCH (12:55)
[2019-10-03] MEDS: ACETAMINOPHEN 325 MG TABLET PO PRN (15:50)
[2019-10-03] MEDS: GABAPENTIN 400 MG CAPSULE PO SCH ×2 (15:50→20:53)
[2019-10-03] MEDS: SODIUM CHLORIDE 0.45% 1,000 ML IV SCH (15:55)
[2019-10-03] MEDS: POLYETHYLENE GLYCOL POWDER 17 GM PACK PO SCH (20:53)
[2019-10-03] MEDS: ALPRAZolam 0.25 MG TABLET PO SCH (20:53)
[2019-10-03] MEDS: SIMVASTATIN 20 MG TABLET PO SCH (20:53)
[2019-10-03] MEDS: ASPIRIN EC 81 MG TABLET PO SCH (20:54)
[2019-10-03] MEDS: diphenhydrAMINE CAP 25 MG CAPSULE PO PRN (20:54)
[2019-10-04] MEDS: SODIUM CHLORIDE 0.45% 1,000 ML IV SCH (05:45)
[2019-10-04] MEDS: ALPRAZolam 0.25 MG TABLET PO SCH ×2 (08:23→20:15)
[2019-10-04] MEDS: BACLOFEN 20 MG TABLET PO SCH ×2 (08:23→20:15)
[2019-10-04] MEDS: DULoxetine 30 MG CAPSULE PO SCH (08:23)
[2019-10-04] MEDS: ZINC OXIDE PASTE 113 GM TUBE TOP SCH ×2 (08:23→20:16)
[2019-10-04] MEDS: TAMSULOSIN 0.4 MG CAPSULE PO SCH ×2 (08:23→20:15)
[2019-10-04] MEDS: ENOXAPARIN 40 MG/0.4 ML SYRINGE SUBCUT SCH (11:21)
[2019-10-04 15:11] LABS: Amorphous Crystals,Urine Occasional /HPF (Few); Apearance,Urine Slightly Hazy (Clear); Bacteria,Urine Many /HPF (Few); Bilirubin,Urine Negative (Negative); Blood, Urine Negative (Negative); Glucose,Urine (UA) Negative (Negative); Ketones,Urine Negative (Negative); Mucus,Urine Occasional /LPF (Occasional); Nitrite,Urine Negative (Negative); Protein,Urine Negative; Squamous Epithelial Cell,Urine Occasional /HPF (0-10); Urine Color Yellow (Yellow); Urine Specific Gravity 1.029 (1.001-1.035); WBC,Urine 7 /HPF (0-6)
[2019-10-04] MEDS: GABAPENTIN 400 MG CAPSULE PO SCH ×2 (16:33→20:15)
[2019-10-04] MEDS: ASPIRIN EC 81 MG TABLET PO SCH (20:15)
[2019-10-04] MEDS: SIMVASTATIN 20 MG TABLET PO SCH (20:15)
[2019-10-04] MEDS: diphenhydrAMINE CAP 25 MG CAPSULE PO PRN (20:15)
[2019-10-04] MEDS: POLYETHYLENE GLYCOL POWDER 17 GM PACK PO SCH (20:16)
[2019-10-05] MEDS: ALPRAZolam 0.25 MG TABLET PO SCH ×2 (09:08→21:09)
[2019-10-05] MEDS: ZINC OXIDE PASTE 113 GM TUBE TOP SCH ×2 (09:09→21:09)
[2019-10-05] MEDS: TAMSULOSIN 0.4 MG CAPSULE PO SCH ×2 (09:09→21:08)
[2019-10-05] MEDS: DULoxetine 30 MG CAPSULE PO SCH (09:09)
[2019-10-05] MEDS: BACLOFEN 20 MG TABLET PO SCH ×2 (09:09→21:08)
[2019-10-05] MEDS: ENOXAPARIN 40 MG/0.4 ML SYRINGE SUBCUT SCH (12:21)
[2019-10-05] MEDS: GABAPENTIN 400 MG CAPSULE PO SCH ×2 (16:28→21:09)
[2019-10-05] MEDS: ASPIRIN EC 81 MG TABLET PO SCH (21:08)
[2019-10-05] MEDS: SIMVASTATIN 20 MG TABLET PO SCH (21:08)
[2019-10-05] MEDS: POLYETHYLENE GLYCOL POWDER 17 GM PACK PO SCH (21:09)
[2019-10-06 05:07] LABS: Basophils % 0.3 % (0.0-0.8); Eosinophils # 0.3 10*3/uL (0.0-0.87); Eosinophils % 2.9 % (0.00-10.9); Hematocrit 42.6 VOL% (42.0-52.0); Hemoglobin 13.3 GM/DL (14.0-18.0); Immature Granulocytes % 0.6 %; Immature Granulocytes Absolute 0.05 #; Lymphocytes # 3.2 10*3/uL (1.4-4.0); Lymphocytes % 35.5 % (21.2-54.2); Mean Corpuscular HGB Conc 31.2 GM/DL (32-36); Mean Platelet Volume 9.2 FL (9.6-12.0); Monocytes % 8.4 % (1.7-12.7); Neutrophils % 52.3 % (38.7-73.9); Platelet Count 259 T/CUMM (130-400); Red Blood Count 4.68 MC/CUMM (3.8-5.5); Red Cell Distribution Width 15.2 % (9.3-17.3); White Blood Count 9.1 T/CUMM (4-12)
[2019-10-06 05:43] LABS: Osmolality,Calculated 280.4 MOS/KG (273-304)
[2019-10-06] MEDS: DULoxetine 30 MG CAPSULE PO SCH (09:35)
[2019-10-06] MEDS: ALPRAZolam 0.25 MG TABLET PO SCH (09:36)
[2019-10-06] MEDS: TAMSULOSIN 0.4 MG CAPSULE PO SCH (09:36)
[2019-10-06] MEDS: ZINC OXIDE PASTE 113 GM TUBE TOP SCH (09:37)
[2019-10-06] MEDS: BACLOFEN 20 MG TABLET PO SCH (09:37)
[2019-10-06 11:33] VITALS: BP 102/65
[2019-10-06] MEDS: ENOXAPARIN 40 MG/0.4 ML SYRINGE SUBCUT SCH (12:41)
== END 2019-10-06 13:30 ==
LOC: N.EDINP 07:12 → N.ED 07:12 → SUATTDRO 10:51 → N.4E 11:55
PROVIDERS: ADMIT Hospitalist; ATTEND Internal Medicine

== ENCOUNTER 2020-01-15 09:47 | Inpatient (IN) ==
[2020-01-15] MEDS ORDERED: ASPIRIN 325 MG TABLET PO STA (10:06)
[2020-01-15 10:13] LABS: Basophils # 0.1 10*3/uL (0.0-0.2); Basophils % 0.7 % (0.0-0.8); Eosinophils # 0.1 10*3/uL (0.0-0.87); Eosinophils % 1.2 % (0.00-10.9); Immature Granulocytes % 0.5 %; Immature Granulocytes Absolute 0.04 #; Lymphocytes # 2.8 10*3/uL (1.4-4.0); Mean Corpuscular HGB Conc 31.3 GM/DL (32-36); Mean Platelet Volume 9.4 FL (9.6-12.0); Monocytes % 8.9 % (1.7-12.7); Neutrophils % 56.7 % (38.7-73.9); Platelet Count 299 T/CUMM (130-400); Red Blood Count 5.16 MC/CUMM (3.8-5.5); White Blood Count 8.7 T/CUMM (4-12)
[2020-01-15 10:50] LABS: Albumin 2.9 G/DL (3.4-5.0); Bilirubin,Total 0.5 MG/DL (0.2-1.0); Calcium 9.5 MG/DL (8.5-10.1); Total Protein 8.2 G/DL (6.4-8.3)
[2020-01-15] MEDS ORDERED: GLUCAGON 1 MG VIAL IM PRN (11:38)
[2020-01-15] MEDS ORDERED: DEXTROSE 10% 250 ML BAG IV PRN (11:38)
[2020-01-15] MEDS ORDERED: ACETAMINOPHEN 325 MG TABLET PO PRN (11:38)
[2020-01-15] MEDS ORDERED: NITROGLYCERIN SL 0.4 MG TABLET SL PRN (13:38)
[2020-01-15] MEDS ORDERED: ALUM/MAG/SIMETH/LIDO VISC 1:1 30 ML BOTTLE PO ONE (14:01)
[2020-01-15] MEDS: ONDANSETRON 4 MG/2 ML VIAL IV PRN (14:24)
[2020-01-15] MEDS ORDERED: ALBUTEROL/IPRATROPIUM 3 ML NEB RESP TX ONE (14:29)
[2020-01-15] MEDS ORDERED: DOCUSATE SODIUM 100 MG CAPSULE PO PRN (14:37)
[2020-01-15] MEDS ORDERED: diphenhydrAMINE CAP 25 MG CAPSULE PO PRN (14:37)
[2020-01-15] MEDS ORDERED: LACTULOSE 20 GM/30 ML UDCUP PO PRN (14:37)
[2020-01-15] MEDS ORDERED: ALBUTEROL/IPRATROPIUM 3 ML NEB RESP TX PRN (15:10)
[2020-01-15] MEDS: MORPHINE 4 MG/1 ML VIAL IV PRN (15:13)
[2020-01-15] MEDS: GABAPENTIN 100 MG CAPSULE PO SCH ×2 (15:49→21:45)
[2020-01-15] MEDS: ACETAMINOPHEN 325 MG TABLET PO SCH ×2 (15:49→21:45)
[2020-01-15] MEDS: METOPROLOL TARTRATE 25 MG TABLET PO SCH ×2 (15:49→21:52)
[2020-01-15] MEDS ORDERED: methylPREDNISolone SOD SUC 40 MG/1 ML VIAL IV ONE (16:09)
[2020-01-15] MEDS ORDERED: KETOROLAC 30 MG/1 ML VIAL IV ONE (17:16)
[2020-01-15] MEDS ORDERED: LIDOCAINE 5% PATCH TRANSDERM ONE (17:22)
[2020-01-15] MEDS: cefTRIAXone 1,000 MG in SYRINGE 1 EACH IV SCH (17:42)
[2020-01-15] MEDS: AZITHROMYCIN INJ 500 MG in SODIUM CHLORIDE 0.9% 250 ML IV SCH (17:43)
[2020-01-15] MEDS: ALBUTEROL/IPRATROPIUM 3 ML NEB RESP TX SCH (20:14)
[2020-01-15] MEDS: BACLOFEN 20 MG TABLET PO SCH (21:44)
[2020-01-15] MEDS: ASPIRIN EC 81 MG TABLET PO SCH (21:45)
[2020-01-15] MEDS: ALPRAZolam 0.5 MG TABLET PO SCH (21:45)
[2020-01-15] MEDS: TAMSULOSIN 0.4 MG CAPSULE PO SCH (21:45)
[2020-01-15] MEDS: SIMVASTATIN 20 MG TABLET PO SCH (21:46)
[2020-01-15] MEDS: POLYETHYLENE GLYCOL POWDER 17 GM PACK PO SCH (21:47)
[2020-01-15] MEDS: ZINC OXIDE PASTE 113 GM TUBE TOP SCH (21:53)
[2020-01-16] MEDS: ALBUTEROL/IPRATROPIUM 3 ML NEB RESP TX SCH ×7 (00:07→23:10)
[2020-01-16 07:37] LABS: Basophils % 0.2 % (0.0-0.8); Hematocrit 48.9 VOL% (42.0-52.0); Immature Granulocytes % 0.6 %; Immature Granulocytes Absolute 0.06 #; Lymphocytes # 1.7 10*3/uL (1.4-4.0); Lymphocytes % 15.3 % (21.2-54.2); Mean Corpuscular HGB Conc 30.7 GM/DL (32-36); Mean Corpuscular Volume 95.7 FL (87-102); Mean Platelet Volume 9.3 FL (9.6-12.0); Monocytes % 5.3 % (1.7-12.7); Neutrophils % 78.6 % (38.7-73.9); Platelet Count 280 T/CUMM (130-400); Red Blood Count 5.11 MC/CUMM (3.8-5.5); Red Cell Distribution Width 14.7 % (9.3-17.3); White Blood Count 10.8 T/CUMM (4-12)
[2020-01-16 07:39] LABS: Risk Ratio 6.29
[2020-01-16 07:50] LABS: Alanine Aminotransferase 48 U/L (16-61); Alkaline Phosphatase 71 U/L (45-117); Aspartate Amino Transferase 37 U/L (0-37); Bilirubin,Total < 0.39 MG/DL (0.2-1.0); Blood Urea Nitrogen 24 MG/DL (7-18); Calcium 9.2 MG/DL (8.5-10.1); Estimated Glom Filtration Rate 95 ML/MIN; Glucose 121 MG/DL (74-106); Osmolality,Calculated 274.1 MOS/KG (273-304); Total Protein 8.4 G/DL (6.4-8.3)
[2020-01-16] MEDS ORDERED: GABAPENTIN 300 MG CAPSULE PO ONE (08:16)
[2020-01-16] MEDS: ACETAMINOPHEN 325 MG TABLET PO SCH ×2 (08:34→22:04)
[2020-01-16] MEDS: DULoxetine 30 MG CAPSULE PO SCH (08:35)
[2020-01-16] MEDS: METOPROLOL TARTRATE 25 MG TABLET PO SCH ×2 (08:35→22:15)
[2020-01-16] MEDS: TAMSULOSIN 0.4 MG CAPSULE PO SCH ×2 (08:35→22:04)
[2020-01-16] MEDS: BACLOFEN 20 MG TABLET PO SCH ×2 (08:35→22:04)
[2020-01-16] MEDS: PANTOPRAZOLE 40 MG TABLET PO SCH (08:35)
[2020-01-16] MEDS: ALPRAZolam 0.5 MG TABLET PO SCH ×2 (08:36→22:04)
[2020-01-16] MEDS: ZINC OXIDE PASTE 113 GM TUBE TOP SCH ×2 (08:36→22:11)
[2020-01-16] MEDS ORDERED: SODIUM CHLORIDE 0.9% 500 ML IV ONE (15:47)
[2020-01-16] MEDS: cefTRIAXone 1,000 MG in SYRINGE 1 EACH IV SCH (16:01)
[2020-01-16] MEDS: AZITHROMYCIN INJ 500 MG in SODIUM CHLORIDE 0.9% 250 ML IV SCH (16:02)
[2020-01-16] MEDS ORDERED: GABAPENTIN 300 MG CAPSULE PO SCH (21:00)
[2020-01-16] MEDS: ASPIRIN EC 81 MG TABLET PO SCH (22:03)
[2020-01-16] MEDS: SIMVASTATIN 20 MG TABLET PO SCH (22:03)
[2020-01-16] MEDS: POLYETHYLENE GLYCOL POWDER 17 GM PACK PO SCH (22:06)
[2020-01-17] MEDS: ALBUTEROL/IPRATROPIUM 3 ML NEB RESP TX SCH ×3 (03:00→11:40)
[2020-01-17] MEDS: MORPHINE 4 MG/1 ML VIAL IV PRN (05:57)
[2020-01-17] MEDS: ONDANSETRON 4 MG/2 ML VIAL IV PRN (05:57)
[2020-01-17 06:43] LABS: Basophils % 0.4 % (0.0-0.8); Eosinophils # 0.1 10*3/uL (0.0-0.87); Eosinophils % 0.9 % (0.00-10.9); Hematocrit 42.6 VOL% (42.0-52.0); Hemoglobin 12.9 GM/DL (14.0-18.0); Immature Granulocytes % 0.5 %; Immature Granulocytes Absolute 0.04 #; Lymphocytes % 38.7 % (21.2-54.2); Mean Corpuscular HGB Conc 30.3 GM/DL (32-36); Mean Corpuscular Volume 95.9 FL (87-102); Mean Platelet Volume 9.3 FL (9.6-12.0); Monocytes % 8.8 % (1.7-12.7); Neutrophils % 50.7 % (38.7-73.9); Platelet Count 211 T/CUMM (130-400); Red Blood Count 4.44 MC/CUMM (3.8-5.5); Red Cell Distribution Width 15.2 % (9.3-17.3); White Blood Count 7.6 T/CUMM (4-12)
[2020-01-17 07:00] LABS: Calcium 8.4 MG/DL (8.5-10.1); Osmolality,Calculated 288.1 MOS/KG (273-304)
[2020-01-17] MEDS ORDERED: AZITHROMYCIN 250 MG TABLET PO SCH (09:00)
[2020-01-17] MEDS: METOPROLOL TARTRATE 25 MG TABLET PO SCH (09:30)
[2020-01-17] MEDS: BACLOFEN 20 MG TABLET PO SCH (09:30)
[2020-01-17] MEDS: DULoxetine 30 MG CAPSULE PO SCH (09:30)
[2020-01-17] MEDS: ZINC OXIDE PASTE 113 GM TUBE TOP SCH (09:31)
[2020-01-17] MEDS: TAMSULOSIN 0.4 MG CAPSULE PO SCH (09:31)
[2020-01-17] MEDS: ALPRAZolam 0.5 MG TABLET PO SCH (09:31)
[2020-01-17] MEDS: ACETAMINOPHEN 325 MG TABLET PO SCH (09:31)
[2020-01-17] MEDS: PANTOPRAZOLE 40 MG TABLET PO SCH (09:31)
[2020-01-17] MEDS ORDERED: MAGNESIUM CITRATE 300 ML BOTTLE PO ONE (10:14)
[2020-01-17 11:18] VITALS: BP 84/47
== END 2020-01-17 14:22 | disposition home or self-care (01) | DRG 194 ==
LOC: EDUNIT# → EDBD → N.EDINP 09:47 → N.ED 09:47 → N.TELES 12:37
PROVIDERS: ADMIT Internal Medicine; ATTEND Internal Medicine